=== PATIENT | male | born 1945 | race Caucasian/White ===

== ENCOUNTER 2019-11-27 14:08 | Outpatient (CLI) | payer MEDICARE, OTHER, SELFPAY ==
--- NOTE | 2019-11-27 18:16 | ONC CON_ITS ---
Dr. Jansen New Patient Note Patient: Neeraj Sheridan Unit #: [id number]: 1945 Dicatated By: Ronak Jansen M.D.Date of Visit: November 27, 2019 Onc MED New Patient/Consult Referring Physician: Dr. Ronak Caal Iii, M.D. Chief Complaint: Melanoma. 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 He has multiple medical illnesses including hypertension, hyperlipidemia, type 2 diabetes, coronary artery disease with congestive heart failure, and chronic kidney disease. He had presented with an enlarging mole in the left upper back. He had not actually seen it, but he had been aware of its presence for least a year and a half. He had it looked at after it had started bleeding. He was referred to Dr. Caal in [place] and he underwent excisional biopsy on 10/08/2019. I did not have the complete pathology report from that procedure, but according to available records it showed nodular melanoma with Breslow depth 13 mm and with associated ulceration. Staging PET/CT on 10/22/2019 showed no evidence for metabolically active malignancy. MRI of the brain also reportedly showed no evidence of metastatic disease. On 10/28/2019 he underwent a radical resection of soft tissue greater than 5 cm and he underwent lymph node mapping and left axillary superficial sentinel lymphadenectomy. Pathology on the wide excision showed no residual melanoma. There were extensive regressive changes including tumoral melanosis. One lymph node was positive for isolated tumor cells of metastatic melanoma. Pathologic staging was T4b, N1a. He says he has been feeling pretty good, though he complains that he has no energy. He has limited activity, but he is ambulatory and able to function, and he does play golf. His ECOG score is 2. He has good appetite. His weight has been stable. He has no fever. He occasionally has night sweating associated with his diabetes. He says his breathing is good except when he retains fluid. He has a nonproductive cough. He has known coronary disease, but he has not had any chest pain recently. He has no GI/ complaints other than some heartburn. He has chronic back pain. He also has some arthritis pain in his hands. He does not complain of headache. He has dizziness if he gets up too fast. He has neuropathy in his legs and feet. Past Medical History: His medical history includes chronic kidney disease, congestive heart failure, coronary artery disease, degenerative disease of the spine, gastroesophageal reflux disease, hyperlipidemia, hypertension, macular degeneration, peripheral neuropathy, and type II diabetes. Past Surgical History: He underwent excision of melanoma from the left upper back on 10/08/2019. He underwent radical resection/wide excision with lymph node mapping and with left axillary superficial sentinel lymphadenectomy on 10/28/2019. His other surgical/procedural history includes argon laser iridotomy, coronary angioplasty with stent placement in 2010 and in 2011, coronary artery bypass surgery in 2002, and tonsillectomy. Medications: Aspirin 1 Tablet (of 81 mg) Oral at bedtime, Bumetanide 1 Tablet (of 1 mg) Oral b.i.d. PRN, Carvedilol 1 Tablet (of 12.5 mg) Oral daily, Flonase 2 [place](s) (of 50 mcg/act) Suspension Nasal daily, Glimepiride 1 (2 mg) Tablet Oral b.i.d., HYDROcodone-Acetaminophen 1 Tablet (of 7.5-325 mg) Oral q 4 hours PRN, Insulin Glargine 55 Units (of 100 Units/mL) Subcutaneous at bedtime, Isosorbide Mononitrate ER 1 Tablet (of 120 mg) Tablet SR 24 HR Oral every am, metOLazone 1 Tablet (of 5 mg) Oral daily PRN, Nitroglycerin 1 Tablet (of 0.4 mg) Tablet, sublingual Sublingual PRN, Ranolazine ER 1 Tablet (of 1000 mg) Tablet SR 12 HR Oral b.i.d., Zetia 1 Tablet (of 10 mg) Oral daily Allergies: Ferrous Sulfate, Magnesium Sulfate, Mevacor, Niaspan, Pravachol, and Statins. Social History: Mr. Sheridan is . 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 He smoked as a teenager, but none since then. He has moderate alcohol use estimated at 3-6 beers per day. Family History: Father of heart attack at age 49. Mother at 96 of old age. He has 1 brother and 2 sisters. He says everyone in the family has diabetes. Review Of Symptoms: Constitutional - He generally feels lousy. His energy level is very low, he does little to nothing at home. His appetite is good and weight is stable. No fever, chills or hot flashes. He has night sweats. ECOG score is 2, Eyes - He has a cataract in the left eye, ENMT - No hearing loss or tinnitus. He has chronic sinusitis. No mouth sores. No sore throat or difficulty swallowing, Hematologic/Lymphatic - He bruises easily, Respiratory - Breathing is good except when he retains extra fluid. He has a nonproductive cough. No pleuritic pain or hemoptysis, Cardiovascular - He has not been having chest pain. No palpitations, Gastrointestinal - No nausea or vomiting. He has acid reflux. No diarrhea or constipation. No blood in the stool or black stools, Genitourinary (M) - No dysuria or hematuria. No urinary frequency. No urgency or incontinence, Musculoskeletal - He has a little arthritis pain in his hands. He has some chronic back pain, Integumentary - He has had a melanoma excised, Neurologic - No headache. He has occasional dizziness with positional changes. He has significant neuropathy in his legs and feet, Psychiatric - No anxiety or depression. No insomnia. Vital Signs: Performed on November 27, 2019 14:30: 0, 31.52 (HIGH), 2.22 sq.m, 71.00 in, 97 %, 82 /min, 22 /min, 188/94 mm(hg) (HIGH), 97.9 F (LOW), and 226.0 lbs (HIGH). Physical Examination: Constitutional - He appears somewhat weak generally, but not acutely ill, Eyes - Sclerae nonicteric. Conjunctivae clear, ENMT - No lesions noted in the oral cavity, Neck - No mass or thyromegaly, Hematologic/Lymphatic - No cervical, clavicular, or axillary adenopathy, Respiratory - Lungs sound clear with slightly diminished air movement bilaterally, Cardiovascular - Heart rhythm is regular. There is no murmur, gallop, or rub noted, Abdomen - Mildly distended but soft. Liver and spleen are not enlarged. There is no abdominal mass or ascites noted and there is no inguinal adenopathy, Back/Spine - No spine or CVA tenderness noted. The incision in the mid to upper back on the left side appears well-healed, Extremities - Mild lower extremity edema. I am not able to palpate pedal pulses, Integumentary - No rashes. No suspicious skin lesions noted, Neurologic - No focal neurologic deficits noted. Impression: 1. 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 2. He underwent excisional biopsy of the melanoma on 10/08/2019 followed by radical resection/wide excision, lymph node mapping, and left axillary superficial sentinel lymphadenectomy on 10/28/2019. His other medical illnesses include: 3. Hypertension. 4. Hyperlipidemia. 5. Type 2 diabetes with peripheral neuropathy. 6. Coronary artery disease with congestive heart failure. 7. Chronic kidney disease. 8. GERD. 9. Degenerative disease of the spine with chronic back pain. 10. Macular degeneration. Plan: The pathology results reviewed with the patient and his , and we discussed the clinical implications. He has undergone complete resection of melanoma from the left upper back, but he has very high risk disease based on the depth of invasion and the involved axillary sentinel lymph node. We discussed the fact that he would potentially be eligible for adjuvant immunotherapy with nivolumab, which has been shown to reduce the risk of recurrence. I reviewed potential side effects associated with nivolumab, which do tend to be immune mediated. Although the risk for severe toxicities would be low, he would be potentially at risk due to his multiple underlying medical illnesses and somewhat marginal performance status. As such, he indicates that he prefers not to have any further treatment at this time. As an alternative, he will be monitored closely and if the melanoma recurs, he will then have the option to undergo treatment. He is scheduled to see his primary care provider on Sunday and I will request to have CBC, CMP, and LDH level included with that visit. I will then plan to see him again in 3 months, or sooner as needed. Signed By: Ronak Jansen M.D. <<Signature on File>>
== END 2019-11-27 14:09 | disposition home or self-care (01) ==
PROVIDERS: PCP Internal Medicine; Referring Provider Surgery; Visit Provider Internal Medicine Medical Oncology
DX: C43.59 Malignant melanoma of other part of trunk (principal); C77.3 Secondary and unspecified malignant neoplasm of axilla and upper limb lymph nodes; I13.0 Hypertensive heart and chronic kidney disease with heart failure and stage 1 through stage 4 chronic kidney disease, or unspecified chronic kidney disease; N18.9 Chronic kidney disease, unspecified; I50.9 Heart failure, unspecified; I25.10 Atherosclerotic heart disease of native coronary artery without angina pectoris; K21.9 Gastro-esophageal reflux disease without esophagitis; M48.9 Spondylopathy, unspecified; H35.30 Unspecified macular degeneration; Z79.82 Long term (current) use of aspirin
CPT/HCPCS: 99205

== ENCOUNTER 2020-02-19 14:01 | Outpatient (CLI) | payer MEDICARE, OTHER, SELFPAY ==
[2020-02-19 14:30] LABS: Basophils % 0.5 %; Eosinophils # 0.5 10^3/uL (0.0-0.8); Eosinophils % 6.1 %; Hematocrit 36.4 % (42.0-52.0); Hemoglobin 12.1 g/dL (11.7-16.6); Lymphocytes # 1.4 10^3/uL (0.8-4.8); Lymphocytes % 18.3 %; Mean Corpuscular HGB Conc 33.2 g/dL (30.0-36.0); Mean Corpuscular Hemoglobin 33.1 pg (28.0-34.0); Mean Corpuscular Volume 99.5 fL (80-94); Mean Platelet Volume 10.7 fL (7.4-10.4); Monocytes # 0.8 10^3/uL (0.2-0.9); Monocytes % 10.7 %; Neutrophils # 4.87 10^3/uL (1.8-7.7); Nucleated Red Blood Cells % 0 %; Platelet Count 206 10^3/cmm (130-400); Red Blood Count 3.66 10^6/uL (4.1-5.3); Red Cell Distribution Width 11.8 % (12.1-15.1); White Blood Count 7.6 10^3/uL (4.0-10.0)
[2020-02-19 14:45] LABS: Alanine Aminotransferase 13 U/L (0-41); Albumin Level 4.1 g/dL (3.5-5.2); Alkaline Phosphatase 63 IU/L (40-130); Anion Gap 16.5 (5-19); Aspartate Amino Transferase 14 U/L (0-40); Blood Urea Nitrogen 57 mg/dL (8-23); Calcium 9.1 mg/dL (8.5-10.5); Carbon Dioxide 22 mmol/L (22-29); Chloride 99 mmol/L (98-107); Globulin 3.4 g/dL (1.3-4.6); Glucose 404 mg/dL (65-115); Lactate Dehydrogenase 194 U/L (135-225); Osmolality Calculated 292 mOsm/kg (285-295); Potassium 4.5 mmol/L (3.5-5.1); Sodium 133 mmol/L (136-145); Total Bilirubin 0.3 mg/dL (0.15-1.2); Total Protein 7.5 g/dL (6.6-8.7)
--- NOTE | 2020-02-21 19:26 | ONC FU_ITS ---
Dr. Jansen Patient Follow-Up Note Patient: Neeraj Sheridan Unit #: [id number]: 1945 Dicatated By: Ronak Jansen M.D.Date of Visit:Feb 19, 2020 Onc Med Follow-up/Prog Note Chief Complaint: Melanoma. 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 He has multiple medical illnesses including hypertension, hyperlipidemia, type 2 diabetes, coronary artery disease with congestive heart failure, and chronic kidney disease. He had presented with an enlarging mole in the left upper back. He had not actually seen it, but he had been aware of its presence for least a year and a half. He had it looked at after it had started bleeding. He was referred to Dr. Caal in [place] and he underwent excisional biopsy on 10/08/2019. I did not have the complete pathology report from that procedure, but according to available records it showed nodular melanoma with Breslow depth 13 mm and with associated ulceration. Staging PET/CT on 10/22/2019 showed no evidence for metabolically active malignancy. MRI of the brain also reportedly showed no evidence of metastatic disease. On 10/28/2019 he underwent a radical resection of soft tissue greater than 5 cm and he underwent lymph node mapping and left axillary superficial sentinel lymphadenectomy. Pathology on the wide excision showed no residual melanoma. There were extensive regressive changes including tumoral melanosis. One lymph node was positive for isolated tumor cells of metastatic melanoma. Pathologic staging was T4b, N1a. I had seen him initially on 11/27/2019. We discussed the possibility of adjuvant immunotherapy, as he did appear to meet the eligibility requirements. Due to his multiple underlying medical illnesses he opted against treatment. He is seen for a followup visit. He has been feeling a little better generally. He has better energy now. He has been playing golf, and he can do light work. His ECOG score is 1. He has good appetite. He has lost weight. He has no fever or night sweats. He does not complain of shortness of breath, cough, or chest pain. He has no GI or complaints. He has joint pain, mainly in the hands and shoulders. He does not complain of headache or dizziness. He neuropathy in his feet. Medications: Aspirin 1 Tablet (of 81 mg) Oral at bedtime, Bumetanide 1 Tablet (of 1 mg) Oral b.i.d. PRN, Carvedilol 1 Tablet (of 12.5 mg) Oral daily, Flonase 2 [place](s) (of 50 mcg/act) Suspension Nasal daily, Glimepiride 1 (2 mg) Tablet Oral b.i.d., HYDROcodone-Acetaminophen 1 Tablet (of 7.5-325 mg) Oral q 4 hours PRN, Insulin Glargine 55 Units (of 100 Units/mL) Subcutaneous at bedtime, Isosorbide Mononitrate ER 1 Tablet (of 120 mg) Tablet SR 24 HR Oral every am, metOLazone 1 Tablet (of 5 mg) Oral daily PRN, Nitroglycerin 1 Tablet (of 0.4 mg) Tablet, sublingual Sublingual PRN, Ranolazine ER 1 Tablet (of 1000 mg) Tablet SR 12 HR Oral b.i.d., Zetia 1 Tablet (of 10 mg) Oral daily Allergies: Ferrous Sulfate, Magnesium Sulfate, Mevacor, Niaspan, Pravachol, and Statins. Review of Systems: Constitutional - His energy is okay. He can do some light work around the house. His appetite is good and his weight is down about 15 pounds from his last visit. No fever, night sweats, or hot flashes. ECOG score is 1, ENMT - No sinus congestion/drainage. No mouth sores. No sore throat or difficulty swallowing, Hematologic/Lymphatic - No abnormal bruising or bleeding, Respiratory - No shortness of breath. No cough. No pleuritic pain or hemoptysis, Cardiovascular - No angina pain. No palpitations, Gastrointestinal - No nausea or vomiting. No heartburn or acid reflux. No diarrhea or constipation. No blood in the stool or black stools, Genitourinary (M) - No dysuria or hematuria. He has urinary frequency. No urgency or incontinence, Musculoskeletal - He has joint pain in his hands and shoulders, Integumentary - No skin complications, Neurologic - No headache or dizziness. He has neuropathy in his feet. No other focal neurologic symptoms, Psychiatric - No anxiety or depression. No insomnia. Vital Signs: Performed on Feb 19, 2020 16:03 Height - 71.00 in Weight - 211.0 lbs (LOW) BSA - 2.16 sq.m BMI - 29.43 Temperature - 98.5 F Pulse - 89 /min Respiration - 17 /min BP - 140/79 mm(hg) O2 Sat - 95 % (LOW) Pain - 0 Fatigue - 5 Physical Examination: Constitutional - He looks pretty good generally, Eyes - Sclerae nonicteric. Conjunctivae clear, ENMT - No lesions noted in the oral cavity, Hematologic/Lymphatic - No cervical, clavicular, or axillary adenopathy, Respiratory - Lungs sound clear with slightly diminished air movement bilaterally, Cardiovascular - Heart rhythm is regular. There is no murmur, gallop, or rub noted, Abdomen - Mildly distended but soft. Liver and spleen are not enlarged. There is no abdominal mass or ascites noted and there is no inguinal adenopathy, Extremities - Slight edema, Integumentary - No suspicious skin lesions noted, Neurologic - No focal neurologic deficits noted. Lab/Imaging: Test performed on Feb 19, 2020 14:15 LDH (Total) 194 U/L Sodium 133 mmol/L Potassium 4.5 mmol/L Chloride 99 mmol/L CO2 22 mmol/L Anion Gap 16.5 BUN 57 mg/dL Creatinine 3.1 mg/dL Cr Clearance (Est) 28.3000 mL/min Glucose 404 mg/dL Calcium 9.1 mg/dL Protein, Total 7.5 g/dL Albumin 4.1 g/dL Globulin 3.4 g/dL Bilirubin, Total 0.3 mg/dL ALT (SGPT) 13 U/L AST (SGOT) 14 U/L Alkaline Phosphatase 63 IU/L WBC 7.6 10 3/uL RBC 3.66 10 6/uL HGB 12.1 g/dL HCT 36.4 % MCV 99.5 fL MCH 33.1 pg MCHC 33.2 g/dL RDW 11.8 % Platelet Count 206 10 3/cmm MPV 10.7 fL Neutrophils 4.87 10 3/uL Lymphocytes 1.4 10 3/uL Monocytes 0.8 10 3/uL Eosinophils 0.5 10 3/uL Basophils 0.0 10 3/uL Neutrophil % 64.0 % Lymphocyte % 18.3 % Monocyte % 10.7 % Eosinophil % 6.1 % Basophils % 0.5 % NRBC % 0 % Impression: 1. 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 2. He underwent excisional biopsy of the melanoma on 10/08/2019 followed by radical resection/wide excision, lymph node mapping, and left axillary superficial sentinel lymphadenectomy on 10/28/2019. His other medical illnesses include: 3. Hypertension. 4. Hyperlipidemia. 5. Type 2 diabetes with peripheral neuropathy. 6. Coronary artery disease with congestive heart failure. 7. Chronic kidney disease. 8. GERD. 9. Degenerative disease of the spine with chronic back pain. 10. Macular degeneration. He has undergone resection of a high risk melanoma. Due to his multiple underlying medical illnesses he declined adjuvant immunotherapy. Since his intial visit there has been improvement in his performance status. There has been no evidence of recurrence of the melanoma. Plan: He remains on observation/expectant management for the melanoma. At this point he wishes to just continue his regular followup with Dr. Caal. I will plan to see him again as needed. Signed By: Ronak Jansen M.D. <<Signature on File>>
== END 2020-02-19 14:02 | disposition home or self-care (01) ==
LOC: ONCMED 14:05
PROVIDERS: PCP Internal Medicine; Visit Provider Internal Medicine Medical Oncology
DX: Z08 Encounter for follow-up examination after completed treatment for malignant neoplasm (principal); Z85.820 Personal history of malignant melanoma of skin; E78.5 Hyperlipidemia, unspecified; E11.42 Type 2 diabetes mellitus with diabetic polyneuropathy; I25.10 Atherosclerotic heart disease of native coronary artery without angina pectoris; E11.22 Type 2 diabetes mellitus with diabetic chronic kidney disease; I13.0 Hypertensive heart and chronic kidney disease with heart failure and stage 1 through stage 4 chronic kidney disease, or unspecified chronic kidney disease; N18.9 Chronic kidney disease, unspecified; I11.0 Hypertensive heart disease with heart failure; K21.9 Gastro-esophageal reflux disease without esophagitis; M47.9 Spondylosis, unspecified; H35.30 Unspecified macular degeneration
CPT/HCPCS: 36415; 80053; 83615; 85025; G0463

== ENCOUNTER 2020-11-15 23:41 | Inpatient (IN) | payer MEDICARE, OTHER, SELFPAY ==
[2020-11-15 23:42] VITALS: BP 137/105; PULSE 122; RESP 36; TEMP 36.6; O2SAT 99; BMI 30.7
--- NOTE | 2020-11-15 23:45 | ED_ITS ---
HPI - Chest Pain General: Chief Complaint: Shortness of Breath/Dyspnea Stated Complaint: SOB, CP Time Seen by Provider: 11/15/20 23:44 Source: patient and EMS Mode of arrival: EMS Limitations: no limitations History of Present Illness: HPI narrative: 75-year-old male has extensive cardiac history with multiple stents placed and a history of congestive heart failure. Patient states he started having chest pain along with shortness of breath started 2 hours ago. EMS states when they arrived he having difficulty breathing was diaphoretic complain chest pain. Patient given aspirin nitro in route. States his pain has improved. Denies any vomiting. Associated symptoms: Reports dyspnea; Deny abdominal pain, fever(s), nausea or vomiting Review of Systems Const: Denies: fever(s), chills, body aches or change in appetite Eyes: Denies: blurry vision or eye discomfort ENMT: Denies: throat pain or dental pain Card: Reports: chest pain Resp: Reports: dyspnea GI: Denies: abdominal pain, nausea, vomiting or diarrhea : Denies: dysuria Musc: Denies: neck pain or back pain Skin/Breast: Denies: rash Neuro: Denies: headache(s) Psych: Denies: depression Isaias/Lymph: Denies: easy bruising All/Imm: Denies: urticaria Physical Exam Const: COMMON NORMALS: patient oriented x3 and healthy appearing GENERAL APPEARANCE: in distress and ill appearing HENMT: COMMON NORMALS: normocephalic and atraumatic HEAD & SCALP: normocephalic and atraumatic Eye: COMMON NORMALS: Equal, round and reactive pupils present and EOMs intact bilaterally PUPIL: Yes Equal, round and reactive pupils present Neck/C-Spine: COMMON NORMALS: full ROM and supple Chest: COMMONS NORMALS: normal inspection of the chest and normal palpation of entire chest wall Resp: COMMON NORMALS: No retractions, No use of accessory muscles and clear to auscultation bilaterally EFFORT & INSPECTION: Yes tachypneic AUSCULTATION: clear to auscultation bilaterally Cardio: COMMON NORMALS: regular rate, regular rhythm and No murmurs present (Cardio) RATE: regular rate RHYTHM: regular rhythm GI: COMMON NORMALS: Normal to inspection, nondistended, normoactive bowel sounds present, Soft to palpation, non-tender and no masses PALPATION: Yes Soft to palpation Extremity: COMMON NORMALS: normal to inspection and full ROM Neuro: COMMON NORMALS: patient oriented x3, moves all extremities and no focal motor deficits Psych: COMMON NORMALS: mental status grossly normal, Normal thought process present and cooperative THOUGHT PROCESS: Normal thought process present Skin: COMMON NORMALS: no rashes or lesions noted and no wounds GENERAL SKIN EXAM: no rashes or lesions noted Course Vital Signs: Vital signs: Vital Signs Temperature 97.9 F 11/15/20 23:42 Pulse Rate 110 H 11/16/20 00:52 Respiratory Rate 20 H 11/16/20 00:52 Blood Pressure 142/100 11/16/20 00:52 Pulse Oximetry 97 11/16/20 00:52 MDM - Chest Pain MDM Narrative: Medical decision making narrative: Patient presents with chest pain along with CHF exacerbation. He is much improved here on BiPAP. He does have an elevated troponin but his chest pain here is resolved after nitro. Patient given Lasix for CHF I also gave him Lovenox. I had Dr. Shahid review EKG and he agrees that it is left bundle branch with no signs of STEMI. I spoke to the hospitalist will admit the cardiac stepdown and talk to medical hospital sales Dr. Collado Lab Data: Labs: Lab Results 11/15/20 11/15/20 11/15/20 Range/Units 23:44 23:44 23:44 WBC 10.1 H (4.0-10.0) 10^3/ uL RBC 3.89 L (4.1-5.3) 10^6/u L Hgb 12.4 (11.7-16.6) g/dL Hct 37.5 L (42.0-52.0) % MCV 96.4 H (80-94) fL MCH 31.9 (28.0-34.0) pg MCHC 33.1 (30.0-36.0) g/dL RDW 11.9 L (12.1-15.1) % Plt Count 204 (130-400) 10^3/c mm MPV 11.2 H (7.4-10.4) fL Neut % (Auto) 84.2 % Lymph % (Auto) 8.4 % [place] % (Auto) 4.6 % Eos % (Auto) 2.1 % Baso % (Auto) 0.4 % Neut # (Auto) 8.49 H (1.8-7.7) 10^3/u L Lymph # (Auto) 0.9 (0.8-4.8) 10^3/u L [place] # (Auto) 0.5 (0.2-0.9) 10^3/u L Eos # (Auto) 0.2 (0.0-0.8) 10^3/u L Baso # (Auto) 0.0 (0.0-0.1) 10^3/u L Nucleated RBC % (a uto) 0 % Nucleated RBCs # 0.0 /100WBC PT 13.10 (12.1-14.9) SECO NDS INR 0.96 (0.8-1.2) Sodium 133 L (136-145) mmol/L Potassium 6.2 H (3.5-5.1) mmol/L Chloride 99 (98-107) mmol/L Carbon Dioxide 22 (22-29) mmol/L Anion Gap 18.2 (5-19) BUN 44 H (8-23) mg/dL Creatinine 2.6 H (0.7-1.2) mg/dL GFR Calculation Not Reportable Glucose 492 H (65-115) mg/dL POC Glucose (70-110) mg/dL Calculated Osmolal ity 309 H (285-295) mOsm/k g Calcium 8.5 (8.5-10.5) mg/dL Total Bilirubin 0.3 (0.15-1.2) mg/dL AST 29 (0-40) U/L ALT 16 (0-41) U/L Alkaline Phosphata se 63 (40-130) IU/L Troponin T Baselin e (0-15) ng/L NT-Pro-B Natriuret Pep 76082 H (0-450) pg/mL Total Protein 6.9 (6.6-8.7) g/dL Albumin 4.3 (3.5-5.2) g/dL Globulin 2.6 (1.3-4.6) g/dL 11/15/20 11/16/20 Range/Units 23:44 00:10 WBC (4.0-10.0) 10^3/ uL RBC (4.1-5.3) 10^6/u L Hgb (11.7-16.6) g/dL Hct (42.0-52.0) % MCV (80-94) fL MCH (28.0-34.0) pg MCHC (30.0-36.0) g/dL RDW (12.1-15.1) % Plt Count (130-400) 10^3/c mm MPV (7.4-10.4) fL Neut % (Auto) % Lymph % (Auto) % [place] % (Auto) % Eos % (Auto) % Baso % (Auto) % Neut # (Auto) (1.8-7.7) 10^3/u L Lymph # (Auto) (0.8-4.8) 10^3/u L [place] # (Auto) (0.2-0.9) 10^3/u L Eos # (Auto) (0.0-0.8) 10^3/u L Baso # (Auto) (0.0-0.1) 10^3/u L Nucleated RBC % (a uto) % Nucleated RBCs # /100WBC PT (12.1-14.9) SECO NDS INR (0.8-1.2) Sodium (136-145) mmol/L Potassium (3.5-5.1) mmol/L Chloride (98-107) mmol/L Carbon Dioxide (22-29) mmol/L Anion Gap (5-19) BUN (8-23) mg/dL Creatinine (0.7-1.2) mg/dL GFR Calculation Glucose (65-115) mg/dL POC Glucose 519 H* (70-110) mg/dL Calculated Osmolal ity (285-295) mOsm/k g Calcium (8.5-10.5) mg/dL Total Bilirubin (0.15-1.2) mg/dL AST (0-40) U/L ALT (0-41) U/L Alkaline Phosphata se (40-130) IU/L Troponin T Baselin e 377 H* (0-15) ng/L NT-Pro-B Natriuret Pep (0-450) pg/mL Total Protein (6.6-8.7) g/dL Albumin (3.5-5.2) g/dL Globulin (1.3-4.6) g/dL Imaging Data^: CXR: Attestation: I personally reviewed and interpreted this imaging study as follows: Radiologist's impression: [address] [id number] XRay Report Signed Patient: Neeraj Sheridan Unit #: [id number] : 1945 Age/Sex: 75 / M ADM Date: 11/15/20 Loc: ER Room/Bed: Attending Dr: Ordering Provider/Ordering MD: Jolynn Perez MD Date of Service: 11/15/20 Procedure(s): XR chest 1V portable [id number] Accession Number(s): [id number] Report Number: [id number] PROCEDURE INFORMATION: Exam: XR Chest Exam date and time: 11/15/2020 11:45 PM Age: 75 years old Clinical indication: Pain; Chest pressure; Additional info: Cp TECHNIQUE: Imaging protocol: XR of the chest. Views: 1 view. COMPARISON: No relevant prior studies available. FINDINGS: Lungs: No focal consolidation. Prominent pulmonary vasculature. Pleural spaces: Unremarkable. No pleural effusion. No pneumothorax. Heart/Mediastinum: Cardiac shadow is enlarged. Bones/joints: Changes of prior sternotomy. There are several fractured sternal wires which show some separation along with a vertical lucency extending through the expected location of the sternal body. XR/XR chest 1V portable [id number] IMPRESSION: 1. Prominent pulmonary vasculature suggesting possible volume overload or heart failure. 2. Suspected sternal dehiscence. EKG Data^: EKG 1: Attestation: I personally reviewed and interpreted this EKG as follows: EKG interpretation date: 11/15/20 EKG interpretation time: 23:42 Interpretation: sinus tach hr [address] elevation LBBB qrs 157 qtc 419 Critical Care Time Critical Care Time: Critical Care Time: Yes Total Critical Care Time: 36 Attestation: This case had a high probability of a clinically significant, sudden, or life threatening deterioration of this patient's condition which required my full and direct attention, intervention and personal management. Discharge Plan Discharge Patient Disposition: Admitted As Inpatient Clinical Impression: Non-ST elevation [place] (NSTEMI) Congestive heart failure Qualifiers: Heart failure type: unspecified Heart failure chronicity: acute on chronic Qualified Code(s): I50.9 - Heart failure, unspecified Condition: Stable Coding Level of Care Code ED Refuse Driver for g Fwd Exam Comprehensive
--- NOTE | 2020-11-15 23:45 | ECG_ITS ---
[facility] Test Date: 2020-11-16 Pat Name: Neeraj Sheridan Department: Room: [facility]03 Gender: Male Family Assessment Worker: : 1945 Requested By: Jolynn Perez Order Number: [id number] Grant MD: Danitza Collado M.D. Measurements Intervals [place] Rate: 124 P: 46 TX: 229 QRS: -16 QRSD: 164 T: 134 QT: 352 QTc: 506 Interpretive Statements SINUS TACHYCARDIA WITH FIRST DEGREE AV BLOCK INTRAVENTRICULAR CONDUCTION DELAY [130+ ms QRS DURATION] No previous ECG available for comparison Electronically Signed On 11-17-2020 6:56:26 CDT by Danitza Collado M.D. [email or web address] ([email or web address] centerAdvanced Oncotherapyselect medical specialty hospital - [email or web address]/store/NU/[id number] f
--- NOTE | 2020-11-15 23:49 | PC.NURSE ---
EKG taken and given to Dr. Perez
[2020-11-15] MEDS: ondansetron 2 mg/ML SDV 2 mL 4 MG IVP (23:56)
[2020-11-15] MEDS: morphine 4 mg/mL SDV 1 mL IVP (23:57)
[2020-11-16] VITALS (89 sets, daily range): BP systolic 104–172; BP diastolic 57–115; PULSE 91–122; RESP 17–32; TEMP 36.6–37.4; O2SAT 93–100; BMI 29.7
[2020-11-16 00:04] LABS: Basophils % 0.4 %; Eosinophils # 0.2 10^3/uL (0.0-0.8); Eosinophils % 2.1 %; Hematocrit 37.5 % (42.0-52.0); Hemoglobin 12.4 g/dL (11.7-16.6); INR 0.96 (0.8-1.2); Lymphocytes # 0.9 10^3/uL (0.8-4.8); Lymphocytes % 8.4 %; Mean Corpuscular HGB Conc 33.1 g/dL (30.0-36.0); Mean Corpuscular Hemoglobin 31.9 pg (28.0-34.0); Mean Corpuscular Volume 96.4 fL (80-94); Mean Platelet Volume 11.2 fL (7.4-10.4); Monocytes # 0.5 10^3/uL (0.2-0.9); Monocytes % 4.6 %; Neutrophils # 8.49 10^3/uL (1.8-7.7); Neutrophils % 84.2 %; Nucleated Red Blood Cells % 0 %; Platelet Count 204 10^3/cmm (130-400); Red Blood Count 3.89 10^6/uL (4.1-5.3); Red Cell Distribution Width 11.9 % (12.1-15.1); White Blood Count 10.1 10^3/uL (4.0-10.0)
--- NOTE | 2020-11-16 00:04 | ECG_ITS ---
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 Measurements Intervals [place] Rate: 122 P: -40 HI: 133 QRS: -15 QRSD: 157 T: 133 QT: 347 QTc: 495 Interpretive Statements SINUS TACHYCARDIA LEFT BUNDLE BRANCH BLOCK [120+ ms QRS DURATION, 80+ ms Q/S IN V1/V2, 85+ ms R IN I/aVL/V5/V6] No previous ECG available for comparison Electronically Signed On 11-17-2020 6:56:37 CDT by Danitza Collado M.D. [email or web address] [id number] f
[2020-11-16] MEDS: nitroglycerin 0.4 mg sublingual Tablet SUBLINGUAL (00:06)
--- NOTE | 2020-11-16 00:11 | PC.NURSE ---
EKG taken and given to Dr. Perez
[2020-11-16 00:14] LABS: Glucose Point of Care 519 mg/dL (70-110)
[2020-11-16] MEDS: insulin regular-human 100 units/1 mL 10 UNIT IVP (00:16)
[2020-11-16] MEDS: FUROsemide 10 mg/mL SDV 10mL 80 MG IVP (00:16)
[2020-11-16 00:17] LABS: Alanine Aminotransferase 16 U/L (0-41); Albumin Level 4.3 g/dL (3.5-5.2); Alkaline Phosphatase 63 IU/L (40-130); Anion Gap 18.2 (5-19); Aspartate Amino Transferase 29 U/L (0-40); Blood Urea Nitrogen 44 mg/dL (8-23); Calcium 8.5 mg/dL (8.5-10.5); Carbon Dioxide 22 mmol/L (22-29); Chloride 99 mmol/L (98-107); Globulin 2.6 g/dL (1.3-4.6); Glucose 492 mg/dL (65-115); NT Pro B Type Natriuretic Pept 12017 pg/mL (0-450); Osmolality Calculated 309 mOsm/kg (285-295); Potassium 6.2 mmol/L (3.5-5.1); Sodium 133 mmol/L (136-145); Total Bilirubin 0.3 mg/dL (0.15-1.2); Total Protein 6.9 g/dL (6.6-8.7)
[2020-11-16 00:22] LABS: Troponin(5th) Baseline 377 ng/L (0-15)
[2020-11-16] MEDS: enoxaparin 100 mg/mL Syringe SUBCUT (00:32)
--- NOTE | 2020-11-16 01:37 | P.HP_ITS ---
Providers/Chief Complaint Primary Care Provider: Claus Wells MD Chief Complaint: SOB, CP History of Present Illness Neeraj Sheridan is a 75 year old male with past medical history of coronary artery disease, CHF, chronic kidney disease, diabetes, hypertension who presents to emergency room with complaints of chest tightness and shortness of breath. Patient was found to have significant respiratory distress and hypoxia. Chest x-ray revealed pulmonary edema and CHF. BNP and troponin were elevated. EKG revealed left bundle branch block. The patient received nitroglycerin which helped with the chest tightness. Also the patient was started on BiPAP which improved his shortness of breath. The patient was also given 1 dose of Lovenox, furosemide. Currently feels better with the BiPAP. No chest pain at this time. Tower Equipment Installer Dr. Castro was consulted. He reviewed patient's EKG with ED physician. Decision was made to admit the patient and reevaluate in the morning. The patient reports similar episodes in the past. Last episode was about 2 months ago. At that time he took additional dose of Lasix and his symptoms improved at home. 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 He reports drinking couple of beers every day. Denies tobacco. Reports chronic kidney disease which is probably pretty severe. His mentions that he holds his urine very long before urinating. He denies any abdominal or back pain. No dysuria. Review of Systems General: Reports: 10 or more systems reviewed and unremarkable except in HPI and below Medications/Allergies Allergies Allergy/AdvReac Type Severity Reaction Status Date / Time Unable to Assess Allergy Unverified 11/15/20 23:47 Vitals/I&O/Wt Last Vital Signs Temp 97.9 F 11/15/20 23:42 Pulse 105 H 11/16/20 01:17 Resp 19 H 11/16/20 01:17 BP 163/105 11/16/20 01:17 Pulse Ox 99 11/16/20 01:17 Weight last 48 hrs Weight 99.79 kg Physical Exam Narrative: EXAM NARRATIVE: The patient is awake alert and oriented. No acute distress currently. On BiPAP. Mood and affect are appropriate. Responses are adequate. Skin is warm and dry. Moist extremities Neck supple. No JVD Eyes PERRL, extraocular muscles are intact Lungs bibasilar crackles. No respiratory distress Heart S1, S2, regular Abdomen soft, obese, nontender, bowel sounds are present Extremities bilateral pedal edema. No cyanosis or calf tenderness bilaterally. Normal speech. No focal muscle weakness. Data : 11/15/20 23:44 11/15/20 23:44 Other Labs: Laboratory Results WBC 10.1 10^3/uL (4.0-10.0) H 11/15/20 23:44 RBC 3.89 10^6/uL (4.1-5.3) L 11/15/20 23:44 Hgb 12.4 g/dL (11.7-16.6) 11/15/20 23:44 Hct 37.5 % (42.0-52.0) L 11/15/20 23:44 MCV 96.4 fL (80-94) H 11/15/20 23:44 MCH 31.9 pg (28.0-34.0) 11/15/20 23:44 MCHC 33.1 g/dL (30.0-36.0) 11/15/20 23:44 RDW 11.9 % (12.1-15.1) L 11/15/20 23:44 Plt Count 204 10^3/cmm (130-400) 11/15/20 23:44 MPV 11.2 fL (7.4-10.4) H 11/15/20 23:44 Neut % (Auto) 84.2 % 11/15/20 23:44 Lymph % (Auto) 8.4 % 11/15/20 23:44 [place] % (Auto) 4.6 % 11/15/20 23:44 Eos % (Auto) 2.1 % 11/15/20 23:44 Baso % (Auto) 0.4 % 11/15/20 23:44 Neut # (Auto) 8.49 10^3/uL (1.8-7.7) H 11/15/20 23:44 Lymph # (Auto) 0.9 10^3/uL (0.8-4.8) 11/15/20 23:44 [place] # (Auto) 0.5 10^3/uL (0.2-0.9) 11/15/20 23:44 Eos # (Auto) 0.2 10^3/uL (0.0-0.8) 11/15/20 23:44 Baso # (Auto) 0.0 10^3/uL (0.0-0.1) 11/15/20 23:44 Nucleated RBC % (auto) 0 % 11/15/20 23:44 Nucleated RBCs # 0.0 /100WBC 11/15/20 23:44 PT 13.10 SECONDS (12.1-14.9) 11/15/20 23:44 INR 0.96 (0.8-1.2) 11/15/20 23:44 Sodium 133 mmol/L (136-145) L 11/15/20 23:44 Potassium 6.2 mmol/L (3.5-5.1) H 11/15/20 23:44 Chloride 99 mmol/L (98-107) 11/15/20 23:44 Carbon Dioxide 22 mmol/L (22-29) 11/15/20 23:44 Anion Gap 18.2 (5-19) 11/15/20 23:44 BUN 44 mg/dL (8-23) H 11/15/20 23:44 Creatinine 2.6 mg/dL (0.7-1.2) H 11/15/20 23:44 GFR Calculation Not Reportable 11/15/20 23:44 Glucose 492 mg/dL (65-115) H 11/15/20 23:44 POC Glucose 519 mg/dL (70-110) H* 11/16/20 00:10 Calculated Osmolality 309 mOsm/kg (285-295) H 11/15/20 23:44 Calcium 8.5 mg/dL (8.5-10.5) 11/15/20 23:44 Total Bilirubin 0.3 mg/dL (0.15-1.2) 11/15/20 23:44 AST 29 U/L (0-40) 11/15/20 23:44 ALT 16 U/L (0-41) 11/15/20 23:44 Alkaline Phosphatase 63 IU/L (40-130) 11/15/20 23:44 Troponin T Baseline 377 ng/L (0-15) H* 11/15/20 23:44 NT-Pro-B Natriuret Pep 60759 pg/mL (0-450) H 11/15/20 23:44 Total Protein 6.9 g/dL (6.6-8.7) 05/17/21 23:44 Albumin 4.3 g/dL (3.5-5.2) 11/15/20 23:44 Globulin 2.6 g/dL (1.3-4.6) 11/15/20 23:44 Impressions Chest X-Ray 11/15/20 23:44 IMPRESSION: 1. Prominent pulmonary vasculature suggesting possible volume overload or heart failure. 2. Suspected sternal dehiscence. A&P Additional A&P Information 75-year-old male with past medical history of coronary artery disease, CHF, advanced chronic kidney disease, diabetes who presents with chest tightness and shortness of breath. Acute onset. Acute hypoxic respiratory failure secondary to pulmonary edema. Improving with BiPAP. Continue BiPAP in ICU. The patient does not want to be intubated. He is a limited code. CODE STATUS. Limited code. He is okay with cardiovascular resuscitation but does not want to be intubated or mechanically ventilated. He is okay with BiPAP. Acute CHF exacerbation. He will go to ICU. He was given Lasix. Echo will be ordered. He will be seen by the research project coordinator in the morning. Non-ST elevation KS. Left bundle branch block on EKG. Will be seen by the research project coordinator in the morning. Was given full dose of Lovenox in ER which is considering his kidney failure is good for next 24 hours. If he needs a longer course of anticoagulation will need to start him on heparin drip after 24 hours. I will continue aspirin. He will receive Lipitor. Beta-roberth. Hypertension. Uncontrolled. We will start with beta-roberth. We will adjust medications as needed. Acute kidney injury versus chronic kidney disease. I will order ultrasound of his kidneys. We will insert Alejandre if he allows. We will monitor his creatinine. Will avoid nephrotoxic medications. Hyperkalemia. We will review his home medications when med rec is done. We will do necessary adjustments. I am hoping that with furosemide and insulin drip his hyperkalemia will improve quickly. Will recheck in the morning. Reported daily alcohol use. We will start vitamins and CIWA protocol. No evidence of withdrawals at this time. Uncontrolled diabetes. Starting insulin drip protocol in ICU. DVT prophylaxis. Received full dose of Lovenox in the emergency room. We will decide on anticoagulant after discussions with research project coordinator in the morning. Teds and SCDs for now. The plan of care was discussed with the patient and his . They verbalized understanding and agreement. Critical care time 55 minutes. Attestations Medical Necessity Statement*: The patient is being admitted to ICU due to need for BiPAP, oxygen, insulin drip and very close cardiac monitoring. Critical care time 55 minutes. I expect that the patient will spend more than 2 midnights in the hospital. Coding Level of Care Code Acute Director Of Scientific Research for Vijay Terrazas
--- NOTE | 2020-11-16 01:41 | US_ITS ---
WS: [id number] ULTRASOUND RENAL TECHNIQUE: Ultrasound examination of both kidneys. CLINICAL INFORMATION: CARLEE COMPARISON: None. FINDINGS: RIGHT: Right kidney is normal in size and appearance. Echogenicity: Normal. Cortical thickness: cm; Normal. Hydronephrosis: None. Perinephric fluid: None. Right kidney measures: 12.2 cm x 6.8 cm x 6.8 cm. LEFT: Left kidney is normal in size and appearance. Echogenicity: Normal. Cortical thickness: cm; Normal. Hydronephrosis: None. Perinephric fluid: None. Left kidney measures: 10.9 cm x 6.2 cm x 7.6 cm. Aorta not visualized. Alejandre catheter. US/US renal BI* [id number] IMPRESSION: Normal renal ultrasound.
--- NOTE | 2020-11-16 01:41 | USCV_ITS ---
Neeraj Sheridan Age: 75 Gender: M : 1945 Exam Date: 11/16/2020 05:29 Ordering Phys: Max Plascencia MD Technologist: Gracia Chiu Exam Location: [facility] [place] Indication: CHF, NSTEMI BP: 150 / 86 HR: 109 Rhythm: Sinus Technical Quality: TDS MEASUREMENTS (Male / Female) Normal Values 2D ECHO LV Diastolic Diameter PLAX 5.2 cm 4.2 - 5.9 / 3.9 - 5.3 cm LV Systolic Diameter PLAX 4.1 cm LV Chamber Size 3.5 cm IVS Diastolic Thickness 1.3 cm 0.6 - 1.0 / 0.6 - 0.9 cm IVS Systolic Thickness 1.8 cm LVPW Diastolic Thickness 1.2 cm 0.6 - 1.0 / 0.6 - 0.9 cm LVPW Systolic Thickness 1.7 cm RV Chamber Size 2.7 cm LVOT Diameter 2.0 cm LV Ejection Fraction 2D Teich 42.3 % LV Ejection Fraction MOD 2C 52.2 % LV Ejection Fraction 2C AL 53.3 % LA Diameter 4.3 cm LA Width 4.2 cm LA Height 4.3 cm RA Width 4.7 cm RA Height 3.9 cm Aorta at Sinotubular Diameter 3.0 cm M-MODE LV Diastolic Diameter MM 4.5 cm 4.2 - 5.9 / 3.9 - 5.3 cm LV Systolic Diameter MM 3.6 cm LV Ejection Fraction MM Teich 39.1 % IVS Diastolic Thickness MM 1.8 cm 0.6 - 1.0 / 0.6 - 0.9 cm IVS Systolic Thickness MM 2.1 cm LVPW Diastolic Thickness MM 1.5 cm 0.6 - 1.0 / 0.6 - 0.9 cm LVPW Systolic Thickness MM 1.8 cm Aortic Annulus Diameter 3.7 cm LA Ao Ratio MM 1.3 MV E Point Septal Separation 1.1 cm DOPPLER AV Peak Velocity 110.0 cm/s LVOT Peak Velocity 65.0 cm/s AV Area Cont Eq vti 2.1 cm squared AV Area Cont Eq pk 2.0 cm squared MV Area PHT 6.9 cm squared Mitral E to A Ratio 1.4 MV E' Velocity 51.0 cm/s Mitral E to MV E' Ratio 24.6 Mitral E to LV E' Lateral Ratio 22.3 Mitral E to LV E' Septal Ratio 28.1 TR Peak Velocity 188.2 cm/s TR Peak Gradient 14.2 mmHg TR Mean Velocity 112.6 cm/s TR Mean Gradient 6.0 mmHg TR Velocity Time Integral 48.8 cm TV Peak E Velocity 41.0 cm/s Right Atrial Pressure 8.0 mmHg Pulmonary Artery Systolic Pressu 22.2 mmHg PV Peak Velocity 51.0 cm/s RV Acceleration Time 0.1 s RV Ejection Time 0.4 s RV AcT/ET 0.3 FINDINGS Left Ventricle Mildly increased left ventricular cavity size. Moderately decreased left ventricular systolic function. Left ventricular ejection fraction is estimated at 35 %. There is mild global hypokinesis with severe hypokinesis of basal to mid inferolateral, apical lateral, basal to apical anterior and apical church. Abnormal diastolic function. Right Ventricle Normal right ventricular size and systolic function. Right ventricular systolic pressure 22.2 mmHg. Right Atrium Normal right atrial size. Right atrial pressure estimated at 8 mmHg. Left Atrium Mildly increased left atrial size. Mitral Valve Moderate mitral annular calcification. Thickened mitral valve. No mitral valve stenosis. Trace mitral valve regurgitation. Aortic Valve Aortic valve not well visualized. Probably trileaflet aortic valve. No aortic valve stenosis. No aortic valve regurgitation. Tricuspid Valve Tricuspid valve not well visualized. Pulmonic Valve Pulmonic valve not well visualized. No pulmonary valve stenosis. Trace pulmonary valve regurgitation. Pericardium No pericardial effusion. Inferior vena cava not well visualized. Aorta Normal-sized aortic root. CONCLUSIONS 1. This is a technically difficult study. Ultrasound enhancing agent Optison was used per protocol. 2. Mildly increased left ventricular cavity size. Moderately decreased left ventricular systolic function. Left ventricular ejection fraction is estimated at 35 %. There is mild global hypokinesis with severe hypokinesis of basal to mid inferolateral, apical lateral, basal to apical anterior and apical church. Abnormal diastolic function. 3. Normal right ventricular size and systolic function. 4. Normal pulmonary artery pressure. 5. No prior similar studies to compare. Danitza Collado MD (Electronically Signed) Final Date: 16 Nov 2020 15:43 S
[2020-11-16 02:20] LABS: Glucose Point of Care 426 mg/dL (70-110)
[2020-11-16] MEDS: carvedilol 3.125 mg Tablet PO (03:01)
[2020-11-16] MEDS: atorvastatin 40 mg Tablet 80 MG PO (03:01)
[2020-11-16] MEDS: famotidine 20 mg/2 mL INJ IVP (03:02)
[2020-11-16] MEDS: insulin regular-human 250 UNIT in sodium chloride 0.9% 250 ML 11 UNIT IV (03:15)
--- NOTE | 2020-11-16 03:36 | PC.NURSE ---
Insulin gtt Low target: 150, High target: 180 with instructions to use DKA protocol with exception to shut off gtt when blood sugar is at low target range x1 hr, recheck blood sugar and if above target range turn gtt back on and continue per Dr. Plascencia.
[2020-11-16] MEDS: hyDRALAzine 20 mg/mL INJ 1 mL 10 MG IVP (03:50)
[2020-11-16 04:20] LABS: Glucose Point of Care 340 mg/dL (70-110)
[2020-11-16 04:25] LABS: Troponin 5 2HR 1020 ng/L (0-15)
[2020-11-16 04:26] LABS: Troponin 5 2HR Delta 643 ABS# (0-10)
[2020-11-16 05:16] LABS: Glucose Point of Care 274 mg/dL (70-110)
--- NOTE | 2020-11-16 05:45 | ECG_ITS ---
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 Measurements Intervals [place] Rate: 121 P: -21 MD: 126 QRS: -16 QRSD: 140 T: 136 QT: 342 QTc: 486 Interpretive Statements SINUS TACHYCARDIA LEFT BUNDLE BRANCH BLOCK [120+ ms QRS DURATION, 80+ ms Q/S IN V1/V2, 85+ ms R IN I/aVL/V5/V6] Compared to ECG 11/16/2020 00:08:19 Left bundle-branch block now present First degree AV block no longer present Intraventricular conduction delay no longer present Electronically Signed On 11-17-2020 7:04:22 CDT by Danitza Collado M.D. [id number]
[2020-11-16 06:26] LABS: Glucose Point of Care 155 mg/dL (70-110)
[2020-11-16 06:26] LABS: Basophils % 0.3 %; Eosinophils # 0.1 10^3/uL (0.0-0.8); Eosinophils % 0.6 %; Hematocrit 38.9 % (42.0-52.0); Lymphocytes # 1.2 10^3/uL (0.8-4.8); Lymphocytes % 9.7 %; Mean Corpuscular HGB Conc 33.4 g/dL (30.0-36.0); Mean Corpuscular Hemoglobin 32.8 pg (28.0-34.0); Mean Corpuscular Volume 98.2 fL (80-94); Mean Platelet Volume 11.2 fL (7.4-10.4); Monocytes # 0.7 10^3/uL (0.2-0.9); Monocytes % 5.9 %; Neutrophils % 83.1 %; Nucleated Red Blood Cells % 0 %; Platelet Count 182 10^3/cmm (130-400); Red Blood Count 3.96 10^6/uL (4.1-5.3); Red Cell Distribution Width 11.8 % (12.1-15.1); White Blood Count 12.5 10^3/uL (4.0-10.0)
[2020-11-16 06:47] LABS: Blood Urea Nitrogen 45 mg/dL (8-23); Calcium 9.6 mg/dL (8.5-10.5); Carbon Dioxide 25 mmol/L (22-29); Chloride 106 mmol/L (98-107); Glucose 152 mg/dL (65-115); Magnesium 2.1 mg/dL (1.7-2.3); Osmolality Calculated 313 mOsm/kg (285-295); Sodium 144 mmol/L (136-145)
[2020-11-16 06:50] LABS: Anion Gap 17.8 (5-19); Potassium 4.8 mmol/L (3.5-5.1)
--- NOTE | 2020-11-16 07:00 | PM.CONSULT ---
Providers/Reason For Consult Consulting Physican/Specialty*: Dr. Collado, cardiology Reason for Consult*: Non-ST elevation PR Attending Physician: Max Plascencia Primary Care Provider: Claus Wells MD History of Present Illness History of Present Illness Neeraj Sheridan is a 75 year old male with past medical history of CAD s/p CABG x3 in 2002, multiple stents placement in 2010, 2011 and most recently in 2018, hypertension, dyslipidemia, history of chronic stable angina, history of statin intolerance, diabetes mellitus diagnosed in (hemoglobin A1c 6.8), stage IV chronic kidney disease with a baseline creatinine of 1.8-2.1 secondary to diabetic nephropathy (followed by Cande Renee NP at nephrology clinic at [facility]), anemia of chronic kidney disease, vitamin D deficiency and secondary renal hyperparathyroidism, obesity and melanoma s/p radical resection. He denies any history of prior PR or CVA. His primary care physician is Dr. 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 in [place]. He also has history of intermittent hyperkalemia. He usually takes Bumex 1 mg and metolazone 5 mg as needed for worsening swelling in his legs and shortness of breath that usually helps him within few days. He was in his usual state of health until around 9 PM yesterday when he developed shortness of breath and took metolazone but her shortness of breath continued to worsen and he noticed sweating along with chest tightness and pain in his left forearm and hand and hence he decided to come to the hospital for further evaluation. On arrival his baseline troponin T was 377 which increased at 2 hours to 1020 and at 6 hours to 2461. Potassium 6.2, BUN 44 and creatinine 2.6. NT proBNP 12,017.Chest x-ray with prominent pulmonary vasculature suggesting of possible volume overload or heart failure. EKG on arrival showed sinus tachycardia. Left bundle branch block with ST depression more pronounced in anterolateral leads. No prior EKG to compare patient received Lasix 80 mg IV x1 and Lovenox 100 mg subcu x1 . He was placed on BiPAP overnight and at the time of evaluation is currently on 2 L of oxygen via nasal cannula. Overnight urine output of 1300 mL.-7 lb?. At the time of evaluation patient states he is having some chest heaviness and shortness of breath has improved since admission History was obtained from patient's chart and records obtained from [facility]. Last documented echocardiogram from May 2018 showed normal left ventricle size and systolic function with a visually estimated ejection fraction of 55 to 60% and abnormal diastolic function with elevated filling pressure. Normal right ventricular size and systolic function. Normal right atrium. Trace mitral valve regurgitation. Mild tricuspid valve regurgitation with no evidence of pulmonary hypertension. I do not have any records from his nail mill worker. Patient denies having any stress test in the last 3 to 4 years. He does not regularly check his blood pressure but lately his blood pressure has been running high per patient. Review of Systems General: Reports: 10 or more systems reviewed and unremarkable except in HPI and below Const: Reports: fatigue; Denies: fever(s) or chills Eyes: Denies: change in vision ENMT: Denies: change in hearing Card: Reports: chest pain, dyspnea on exertion and orthopnea; Denies: irregular heart rhythm or edema Resp: Reports: dyspnea; Denies: productive cough, non-productive cough or wheezing GI: Denies: abdominal pain, nausea, vomiting or hematochezia : Denies: hematuria Musc: Reports: back pain Skin/Breast: Denies: rash Neuro: Denies: headache(s) Psych: Denies: anxiety or depression Meds/Allergies Home Medications and Allergies Home Medications Medication Instructions Recorded Confirmed Last Taken Type aspirin 81 mg PO BEDTIME 11/16/20 11/16/20 Unknown History bumetanide 1 mg PO BID 11/16/20 11/16/20 Unknown History carvedilol 12.5 mg PO BID 11/16/20 11/16/20 Unknown History cholecalciferol (vitamin D3) 25 mcg PO DAILY 11/16/20 11/16/20 Unknown History [Vitamin D3] ezetimibe 10 mg PO DAILY 11/16/20 11/16/20 Unknown History glimepiride 2 mg PO BID 11/16/20 11/16/20 Unknown History insulin glargine [Lantus Solostar 50 unit SUBCUT DAILY 11/16/20 11/16/20 Unknown History U-100 Insulin] isosorbide mononitrate 120 mg PO DAILY 11/16/20 11/16/20 Unknown History metolazone 5 mg PO DAILY PRN 11/16/20 11/16/20 Unknown History ranolazine 1,000 mg PO BID 11/16/20 11/16/20 Unknown History Allergies Allergy/AdvReac Type Severity Reaction Status Date / Time ferrous sulfate Allergy Unknown Verified 11/16/20 08:09 lovastatin [From Mevacor] Allergy ALGY-Wheezi Verified 11/16/20 08:09 ng magnesium sulfate Allergy ADR-Gastrointestinal Verified 11/16/20 08:09 Upset niacin Allergy Unknown Verified 11/16/20 08:09 [From Niaspan Extended-Release] pravastatin [From Pravachol] Allergy ADR-Dizzine Verified 11/16/20 08:09 ss [id number]-[id number] Reductase Allergy ADR-Muscle Verified 11/16/20 08:09 Inhibitor Pain Current Medications Current Medications Generic Name Dose Route Start Last Admin Trade Name Freq PRN Reason Stop Dose Admin Atorvastatin Calcium 80 mg 11/16/20 01:45 11/16/20 03:01 Atorvastatin 40 Mg Tablet PO 80 mg Q24H WOJCIECH Administration Carvedilol 3.125 mg 11/16/20 01:45 11/16/20 03:01 Carvedilol 3.125 Mg Tablet PO 3.125 mg Q12H WOJCIECH Administration Famotidine 20 mg 11/16/20 01:41 11/16/20 03:02 Famotidine 20 Mg/2 Ml Inj IVP 20 mg Q24H WOJCIECH Administration Hydralazine HCl 10 mg 11/16/20 01:54 11/16/20 03:50 Hydralazine 20 Mg/Ml Inj 1 Ml IVP 10 mg Q4H PRN Administration SBP above 155 Insulin Human Regular 250 unit 252.5 mls @ 0 mls/hr 11/16/20 01:30 11/16/20 06:15 / Sodium Chloride IV 0 mls/hr .Q0M WOJCIECH 0 mls/hr Titration Protocol Per Protocol PFSH Acute PFSH: Medical History CAD (coronary artery disease) CKD (chronic kidney disease) HTN (hypertension) Hyperlipidemia Vitals/I&O/Wt Last Vital Signs Temp 98.4 F 11/16/20 04:24 Pulse 110 H 11/16/20 06:00 Resp 29 H 11/16/20 06:00 BP 160/90 11/16/20 06:00 Pulse Ox 96 11/16/20 06:00 11/15/20 11/16/20 11/16/20 22:59 06:59 14:59 Intake Total 32.894 / 32.894 Output Total 1325 / 1325 Balance -1292.106 / -1292.106 Weight last 48 hrs Weight 213 lb 9.6 oz Weight 220 lb Physical Exam Narrative: EXAM NARRATIVE: GENERAL: Obese man sitting propped up in bed in mild respiratory distress HEENT: Pupils equal round reactive to light. No pallor or icterus. NECK: Short thick neck, No JVD appreciated. No carotid bruit. CARDIOVASCULAR SYSTEM: S1-S2 regular. Tachycardia present. no S3. No murmur rubs or gallops. RESPIRATORY SYSTEM: Air entry equal bilaterally. No wheezes. Bilateral basal crackles+ no use of accessory muscles. ABDOMEN: Soft, obese, nontender and nondistended. Normal bowel sounds present. EXTREMITIES: No cyanosis or clubbing. No edema. AUTOTRANSFUSIONIST: Patient is alert oriented ?3. No focal neurological deficits. SKIN: Normal turgor and temperature. PSYCH: Normal insight and judgment. Urinary Catheter Management^: Alejandre: Cath Placed During This Visit: yes Reason for Continuing Indwelling Catheter: Accurate Measurement of Urinary Output in Critically Ill Patients Urinary Catheter Date of Insertion: 11/16/20 Urinary Catheter Time of Insertion: 03:05 Data Other Data: Attestation for Other Data: I personally reviewed and interpreted the following: Other data: Transthoracic echocardiogram 16 Nov 2020 CONCLUSIONS 1. This is a technically difficult study. Ultrasound enhancing agent Optison was used per protocol. 2. Mildly increased left ventricular cavity size. Moderately decreased left ventricular systolic function. Left ventricular ejection fraction is estimated at 35 %. There is mild global hypokinesis with severe hypokinesis of basal to mid inferolateral, apical lateral, basal to apical anterior and apical church. Abnormal diastolic function. 3. Normal right ventricular size and systolic function. 4. Normal pulmonary artery pressure. 5. No prior similar studies to compare. A&P Assessment and plan (1) Non-ST elevation PR (NSTEMI): Sudden onset dyspnea with some arm and hand pain (angina equivalent), significantly elevated troponin and echocardiogram with wall motion abnormality in LAD and circumflex artery territory. -There seems to be drop in LV function as well when compared to echocardiogram report dated May 2018. -Left bundle branch block of unclear time of onset no prior EKG to compare. -I will plan to proceed with coronary angiogram. Patient has high risk of contrast-induced nephropathy and ending up on dialysis. -Risks and benefits were discussed with the patient and his . Alternate management options were discussed with the patient as well. Possible complications were reviewed with the patient as well. -Patient initially was really hesitant to undergo any procedures at [facility]. He would like to go to his nail mill worker in [place]. -The option of inpatient transfer was discussed with the patient as well. However patient would like to be discharged home and follow-up with his nail mill worker for further work-up. He was informed that medical management is an option as well however not the best given overall findings. After discussing with his patient reluctantly agreed to proceed with coronary angiogram. -His case was discussed with Dr. Castro. -Patient met Dr. Castro and plan is to proceed for the procedure tomorrow morning. -His last cardiac catheterization report from 2018 has been requested. Status: Acute (2) Congestive heart failure: Known congestive heart failure by history. Preserved LV function based on last echo report obtained. Lasix 40 mg IV x1. Plan to repeat another dose later this afternoon based on urine output. Status: Acute Qualifiers: Heart failure chronicity: acute on chronic Heart failure type: unspecified Qualified Code(s): I50.9 - Heart failure, unspecified (3) Pulmonary edema: Status: Acute Qualifiers: Chronicity: acute Qualified Code(s): J81.0 - Acute pulmonary edema (4) CAD (coronary artery disease): Status: Acute Qualifiers: Coronary Disease-Associated Artery/Lesion type: bypass graft [place] vs. transplanted heart: [place] heart (5) HTN (hypertension): Status: Acute Qualifiers: Hypertension type: essential hypertension Qualified Code(s): I10 - Essential (primary) hypertension (6) Hyperlipidemia: Status: Acute Qualifiers: Hyperlipidemia type: unspecified Qualified Code(s): E78.5 - Hyperlipidemia, unspecified (7) CKD (chronic kidney disease): Status: Acute Qualifiers: Chronic kidney disease stage: stage 4 (severe) Qualified Code(s): N18.4 - Chronic kidney disease, stage 4 (severe) Additional A&P Information CARLEE on CKD Tachycardia: Increase Coreg to 12.5 mg twice a day Obesity Anemia of chronic kidney disease Leukocytosis Thank you for allowing me to participate in patient's care. Please feel free to call with questions or concerns Consult Attestations Medical Necessity Statement: Patient needs hospital stay for management of NSTEMI pulmonary edema and CARLEE on CKD. Time Spent in Patient Care: Greater than 35 minutes (>than 50% of time spent in counselling and/or direct pt care on unit). Coding Level of Care Code Acute Cell Biologist for [facility] Diagnoses Non-ST elevation PR (NSTEMI) I21.4 Congestive heart failure I50.9 Heart failure chronicity: acute on chronic Heart failure type: unspecified Pulmonary edema J81.0 Chronicity: acute CAD (coronary artery disease) I25.10 Coronary Disease-Associated Artery/Lesion type: bypass graft [place] vs. transplanted heart: [place] heart HTN (hypertension) I10 Hypertension type: essential hypertension Hyperlipidemia E78.5 Hyperlipidemia type: unspecified CKD (chronic kidney disease) N18.4 Chronic kidney disease stage: stage 4 (severe)
[2020-11-16 07:01] LABS: Troponin 5 6HR 2461 ng/L (0-15); Troponin 5 6HR Delta 2084 ng/L (0-12)
[2020-11-16 07:04] LABS: Chol HDL Ratio 4.39 mg/dL (1.0-5.00); Cholesterol 202 mg/dL (0-200); HDL Cholesterol 46 mg/dL (60-100); LDL Cholesterol Calculated 120 mg/dL (50-129); LDL HDL Ratio 2.61 RATIO (0.00-3.22); Triglycerides 178 mg/dL (0-150)
[2020-11-16 07:43] LABS: Estmated Average Glucose 148; Hemoglobin A1C 6.8 % (4.0-6.0)
[2020-11-16 08:34] LABS: Glucose Point of Care 152 mg/dL (70-110)
[2020-11-16] MEDS: carvedilol 6.25 mg Tablet PO ×2 (09:03→13:32)
[2020-11-16] MEDS: aspirin 81 mg EC Tablet 162 MG PO (09:03)
[2020-11-16] MEDS: FUROsemide 10 mg/mL SDV 4mL 40 MG IVP (09:03)
--- NOTE | 2020-11-16 09:17 | PC.CHAP ---
Pastoral Care Encounter/Spiritual Assessment Type of Contact [] Declined umbrella tipper hand visit [] Patient/Family/Request visit [] Outpatient visit [] Follow-up visit [] Physician referral [] Code/Alert [x] Routine visit [] Staff referral [] Actively dying [] Patient sleeping [] Family support [] [] Out of room [] Palliative care [] [] Receiving care in room [] Pre-surgical visit [] Trauma [] Long length of stay [x] ICU visit [] Other: Relational/Emotional Strength [] Patient feels connected with others/family/visitors/staff [] Distress [] Loneliness/isolation [] Abandonment Spirituality of Patient [] Person of Estephania [] Attends Church of their Estephania [] Believes in Prayer [] Reads Bible or Hindu materials [] There are Spiritual issues to be addressed Risk Control Consultant Interventions [x] Prayer [] Active listening [] Non-anxious presence [] Spiritual/emotional support [] Crisis/trauma care [] Spiritual counseling [] Bereavement support [] Provided bereavement packet [] Provided Bible/devotional materials [] Provided toy/stuffed animal, coloring book to patient or family member [] Provided Communion [] Anointing/[place] [] Salvation [x] Completed spiritual assessment [] Other: Impact on Illness or Injury [] Angry [] Fearful [] Anxious [] Often cries [] Exhaustion [] Unable to work [] Unable to attend zoroastrian [] Unable to walk/stand [] Unable to read [] Unable to drive [] Unable to eat/drink [] Unable to sleep [] Unable to be with family [] Patient intubated [] Other: Summary Time spent with patient
--- NOTE | 2020-11-16 09:41 | PC.NURSE ---
[address] Morgan. Reviewed lab results, vital signs, UOP, and medications. Orders for S/S insulin. [address] Collado. Reviewed trop levels, kidney function, medications, and heart rhythm. Patient's at bedside. Discussed plan of care, may need heart cath. Dr. Collado to review ECHO results and states she will come back to reassess him.
--- NOTE | 2020-11-16 10:57 | P.PN_ITS ---
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 given his past medical history, he tells me that he does get periodic shortness of breath, and metolazone helps, he tells me that he has not been hospitalized in the last 2 years or so for CHF exacerbations, typically when he becomes short of breath he will take an extra metolazone, he tells me yesterday he had a sudden onset of chest pain and shortness of breath, which improved with Lasix, nitro, and BiPAP therapy in the emergency room, currently chest pain-free, no shortness of breath, he tells me he gets shortness of breath with minimal exertion which is his baseline, he has been dealing with this for many years, currently on 5 L Vitals/I&O/Wt Last Vital Signs Temp 99.3 F 11/16/20 07:42 Pulse 113 H 11/16/20 10:45 Resp 23 H 11/16/20 10:45 BP 163/99 11/16/20 10:30 Pulse Ox 94 11/16/20 10:45 11/15/20 11/16/20 11/16/20 22:59 06:59 14:59 Intake Total 32.894 / 32.894 Output Total 1325 / 1325 650 / 650 Balance -1292.106 / -1292.106 -650 / -650 Weight last 48 hrs Weight 96.887 kg Weight 99.79 kg Physical Exam Const: COMMON NORMALS: no acute distress GENERAL APPEARANCE: cooperative and comfortable Neck/C-Spine: COMMON NORMALS: no JVD Resp: COMMON NORMALS: normal respiratory effort, No retractions and No use of accessory muscles AUSCULTATION: crackles Cardio: COMMON NORMALS: no JVD, regular rate, regular rhythm, S1 normal heart sound present and S2 normal heart sound present RATE: regular rate RHYTHM: regular rhythm HEART SOUNDS: S1 normal heart sound present, S2 normal heart sound present and Murmur heart sound present GI: COMMON NORMALS: Normal to inspection, nondistended, normoactive bowel sounds present, Soft to palpation, non-tender, No hepatosplenomegaly present and no masses PALPATION: Yes Soft to palpation and Yes No hepatosplenomegaly present Extremity: COMMON NORMALS: no pedal edema Urinary Catheter Management^: Alejandre: Cath Placed During This Visit: yes Reason for Continuing Indwelling Catheter: Accurate Measurement of Urinary Output in Critically Ill Patients Urinary Catheter Date of Insertion: 11/16/20 Urinary Catheter Time of Insertion: 03:05 Data : 11/16/20 06:05 11/16/20 06:05 A&P Assessment and plan (1) Acute and chronic respiratory failure with hypoxia: Secondary to acute flash pulmonary edema Plan: -Continue ICU level monitoring -Continue BiPAP as needed during the day, schedule during the night -Diuretic therapy as directed by cardiology -Fluid restrictions 1500 cc -Monitor respiratory status closely, monitor urine output, monitor creatinine, potassium -Patient is a limited code, does not want to be intubated Status: Acute (2) Non-ST elevation TN (NSTEMI): with chest pain and shortness of breath Currently symptom-free History of CABG, 5 stents Baseline troponin 377, 6-hour 2084, 2461 BNP 56909 EKG shows sinus tachycardia, left bundle branch block Etiology likely related to acute flash pulmonary edema, however given prior cardiac history, cannot rule out underlying cardiovascular etiology Plan: -Continue aspirin, statin, Coreg -Received 1 dose of therapeutic Lovenox, for CKD, continue heparin drip after 24 hours -Continue Ranexa, Imdur -Monitor for chest pain -Serial EKGs, serial troponins, telemetry monitoring -Cardiology on consult Status: Acute (3) Pulmonary edema: Status: Acute (4) Congestive heart failure: Status: Acute Qualifiers: Heart failure chronicity: acute on chronic Heart failure type: unspecified Qualified Code(s): I50.9 - Heart failure, unspecified (5) HTN (hypertension): Status: Acute (6) Hyperlipidemia: Status: Acute (7) CAD (coronary artery disease): Status: Acute (8) CKD (chronic kidney disease): -Baseline creatinine unknown -Creatinine 2.6, -Likely component of cardiorenal syndrome -Renal ultrasound ordered, Alejandre in place -Receiving intermittent diuresis Status: Acute Additional A&P Information 75-year-old male with past medical history of coronary artery disease, CHF, advanced chronic kidney disease, diabetes who presents with chest tightness and shortness of breath. Acute onset. CODE STATUS. Limited code. He is okay with cardiovascular resuscitation but does not want to be intubated or mechanically ventilated. He is okay with BiPAP. Hypertension. Currently on Coreg Hyperkalemia. We will review his home medications when med rec is done. We will do necessary adjustments. I am hoping that with furosemide and insulin drip his hyperkalemia will improve quickly. Will recheck in the morning. Reported daily alcohol use. We will start vitamins and CIWA protocol. No evidence of withdrawals at this time. Uncontrolled diabetes. Transition off insulin drip, to subcu insulin, A1c 6.8 DVT prophylaxis. Received full dose of Lovenox in the emergency room. We will decide on anticoagulant after discussions with school bus driver in the morning. Teds and SCDs for now. The plan of care was discussed with the patient and his . They verbalized understanding and agreement. Critical care time spent over 55 minutes Attestations Medical Necessity Statement*: Patient requires hospitalization, for acute respiratory failure secondary to pulmonary edema, NSTEMI, requiring ICU level of care, critical care time spent over 55 minutes Coding Level of Care Code Acute Civil Celebrant for [facility] Diagnoses Acute and chronic respiratory failure with hypoxia J96.21 Non-ST elevation TN (NSTEMI) I21.4 Pulmonary edema J81.1 Congestive heart failure I50.9 Heart failure chronicity: acute on chronic Heart failure type: unspecified HTN (hypertension) I10 Hyperlipidemia E78.5 CAD (coronary artery disease) I25.10 CKD (chronic kidney disease) N18.9
[2020-11-16] MEDS: ranolazine (12HR) 500 mg Tablet 1000 MG PO ×2 (11:13→17:31)
[2020-11-16 11:20] LABS: Glucose Point of Care 221 mg/dL (70-110)
[2020-11-16 11:20] LABS: Glucose Point of Care 105 mg/dL (70-110)
--- NOTE | 2020-11-16 12:51 | PC.NURSE ---
[address] signs [address] Dr[address] Collado. Clarified order for PRN IV hydralazine. Orders to hold hydralazine for now and she will be rounding on patient soon.
[2020-11-16] MEDS: perflutren protein-a microsphr 0.22 mg/mL SDV 3 mL IV (13:41)
--- NOTE | 2020-11-16 15:25 | PC.NURSE ---
1305 Dr. Collado at bedside. Orders for one time dose of Coreg for BP and HR. 1325 Dr. Castro at bedside. Reviewed label sewer procedure with patient and . Plans for cath in am. Ok to eat now, NPO after midnight.
--- NOTE | 2020-11-16 15:46 | ECG_ITS ---
[facility] Test Date: 2020-11-16 Pat Name: Neeraj Sheridan Department: Room: ICU03 Gender: Male Field Manager: : 1945 Requested By: Danitza Collado Order Number: [id number] Grant MD: Danitza Collado M.D. Measurements Intervals Ida Rate: 95 P: -10 IN: 124 QRS: 10 QRSD: 114 T: 171 QT: 391 QTc: 493 Interpretive Statements SINUS RHYTHM MODERATE INTRAVENTRICULAR CONDUCTION DELAY [110+ ms QRS DURATION] ST DEVIATION AND MODERATE T-WAVE ABNORMALITY, CONSIDER ANTEROLATERAL ISCHEMIA [-0.1+ mV T WAVE IN V3-V6] Compared to ECG 11/16/2020 03:04:42 Intraventricular conduction delay now present T-wave abnormality now present Possible ischemia now present Sinus tachycardia no longer present Left bundle-branch block no longer present Electronically Signed On 11-17-2020 7:01:00 CDT by Danitza Collado M.D. [email or web address]
[2020-11-16] MEDS: clopidogrel 300 mg Tablet PO (16:28)
[2020-11-16 16:32] LABS: Glucose Point of Care 190 mg/dL (70-110)
[2020-11-16] MEDS: carvedilol 12.5 mg Tablet PO (20:08)
[2020-11-17] VITALS (95 sets, daily range): BP systolic 85–151; BP diastolic 56–101; PULSE 83–121; RESP 0–34; TEMP 36.4–37.3; O2SAT 81–100
[2020-11-17] MEDS: heparin 5,000 unit/mL INJ 1 mL IV (00:42)
[2020-11-17] MEDS: heparin drip 25,000 UNIT/500 ML PREMIX 27 UNIT IV (00:42)
[2020-11-17] MEDS: atorvastatin 40 mg Tablet 80 MG PO (00:48)
[2020-11-17] MEDS: famotidine 20 mg/2 mL INJ IVP (00:50)
[2020-11-17] MEDS: sodium chloride 0.9% 1,000 ML 50 ML IV (01:27)
--- NOTE | 2020-11-17 01:36 | PC.NURSE ---
Heparin gtt Called Dr. Castro to verify heparin gtt and verbal order given to day shift nurse to turn off gtt at 05:00. Pt shaved and prepped for heart cath procedure.
[2020-11-17 04:59] LABS: Platelet Count 147 10^3/cmm (130-400)
--- NOTE | 2020-11-17 05:47 | XACV_ITS ---
Exam Room: [facility] Ht: 180 cm Wt: 97 kg BSA: 2.22 m2 Gender: Male : 1945 Any Known Allergies: Other Exam Priority: Routine Procedure(s): Procedure Description: Diagnostic procedure Diagnostic Cath Status: Urgent Diagnostic Findings * Left Anterior Descending is occluded, patent SEVILLA to LAD. * SVG to OM and RCA not visualized. * Brief attempt at wiring the distal Left main artery was made, however, it was a YARD LOADER OPERATOR and further attempts were aborted. * Circumflex is occluded. * Left Main to Proximal Left Anterior Descending: total occlusion, MORIS: 0 flow. * Left Internal Mammary Artery to Distal Left Anterior Descending graft: patent. * Distal Right Coronary Artery: moderate 50% stenosis, MORIS: 3 flow. * One graft visualized. * Coronary angiography shows right dominance. Conclusions 1. There is total occlusion coronary artery disease with multivessel disease. 2. One coronary graft visualized. SEVILLA to LAD patent. SVG to OM and SVG to RCA occluded. Likely culprit for NSTEMI was occluded SVG to OM as RCA is patent. 3. Patient has prior CABG. Recommendations * Transfer back to ICU. * Conitnue dual antiplatelet agents. * Will need IV fluids as has significant CKD. Interventional RX Recommendation: medical therapy and/or counseling Diagnostic RX Recommendation: medical therapy and/or counseling Pressures Phase:Rest AO : 471 / 449 ( 471 ) @ 5:21:00 AM 141 / 73 ( 100 ) @ 5:24:00 AM 143 / 70 ( 97 ) @ 5:33:00 AM 118 / 62 ( 81 ) @ 5:34:00 AM Clinical Evaluation EBL: 5mL-10mL Procedural Details Procedure Consent Obtained. Current Diagnosis : NSTEMI. Pre-Procedure Time Out. Identified patient by full name and date of as verbalized by the patient/guarantor. Does the consent match the physician's order: Yes. Accurate & Complete Informed Consent: Yes. Inpatient/Outpatient History & Physical on Chart: Yes. If H&P is completed, is and addenduem needed: No; If yes, is the addendum complete: N/A. Visualize and Verify Site with Patient/Guarantor: N/A. Relevant Radiology Images available: Yes. Pre-op teaching completed and patient verbalized understanding. The risks, benefits, and alternatives of sedation and/or procedure were discussed by physician. The patient agrees to continue. Procedure started. [facility] Clinical Fraility Score: 3: Managing Well. Jet Piercer Operator Indications: ACS > 24 hours. Chest Pain Symptom Assessment: Typical Angina Symptoms. Correct patient, site and procedure confirmed by cath team. Current diagnosis: NSTEMI. PERRLA. Strong, equal hand health screener bilaterally. Lungs clear x 5 lobes. IV Site on Arrival: 18 gauge in the left anticubital. IV Fluids: 0.9% NaCl at KVO. 100 mL infused prior to greens laborer. Oxygen started at 2liters/min via nasal canula. bilateral groins was prepped with chloroprep then draped in the usual sterile fashion. Physician notified. Baseline sample Acquired. HR: 95 BPM. Physician arrived. Physician scrubbed in. Immediate Pre-Procedure Time Out. Correct Patient: Yes; Correct Procedure: Yes; Correct Site: Yes; Correct Patient Position: Yes; Correct Supplies: Yes; Dried Flammable Prep: Yes; Blood Products Available: N/A;. Lidocaine 1% infiltrated to the right groin. Arterial access obtained with micropuncture set. A 5 [facility] lucian JL4 catheter in over wire. Multiple views taken of left coronary artery. Catheter removed over the standard wire. A 5 [facility] lucian JR4 catheter in over wire. Multiple views taken of right coronary artery. Catheter removed over the exchange wire. A 5 [facility] lucian IM guide catheter in over wire. SEVILLA to LAD visualized. Catheter removed over the exchange wire. A 5 [facility] lucian AL1 catheter in over wire. Catheter removed over the standard wire. A 5 [facility] lucian Angled Pig catheter in over wire. Aortogram performed in AP @ 10 mL/second for a total of 30 mL. Jamilah Lovelace RT, for monitor. Catheter out. 6 st lucian LCB guide catheter was inserted over the wire. Guide catheter out. Wire out. 6 st lucian XB 3.5 guide catheter was inserted over the wire. Runthrough guidewire was advanced through the guide catheter to lesion in the prox Circ. Wire out. Guide catheter out. 6F angio-seal placed without complications. No signs or symptoms of hematoma noted. Sterile dressing applied per usual sterile fashion. Lot#[id number]. Post Procedure: Pulses reassessed and unchanged. PERRLA. Strong, equal hand health screener bilaterally. No VTE prophylaxis required. Medication's Wasted: Other = fentanyl 50 mg. Medication's Wasted: Other = versed 1 mg. Medication's Wasted: Heparin = 2000 units. Medication's Wasted: Lidocaine 1% = 4 mL. Total IV fluids: 75 mL. Contrast type used: Visipaque 320 mgI/mL, 500 mL bottle. Contrast Material : Visipaque 156 ml. A Angio-Seal VIP ([facility]) was successful obtaining hemostatsis at the Right Femoral artery insertion site. Post-op diagnosis: occluded SVG graft to OM, severe multivessel CAD. Complications: none. Estimated blood loss: 5mL-10mL. Procedure completed. Patient transferred by bed to ICU. Vital chart was stopped. Access Site Site: Right Femoral artery Sheath Size: 6 Fr Hemostasis Method: Angio-Seal VIP ([facility]) Hemostasis Success: Successful Procedure Medications Start: 6:08 AM Stop: 6:08 AM Medication: Versed Amount: 1 mg Route: I.V. Start: 6:08 AM Stop: 6:08 AM Medication: Fentanyl Amount: 50 mcg Route: I.V. Start: 6:34 AM Stop: 6:34 AM Medication: Versed Amount: 1 mg Route: I.V. Start: 6:51 AM Stop: 6:51 AM Medication: Heparin Amount: 2000 units Route: I.V. Start: 6:52 AM Stop: 6:52 AM Medication: Versed Amount: 1 mg Route: I.V. I, the attending physician, have reviewed and verified all procedure medications. Yes, all medications given per verbal order History/Risk Factors Hypertension: Yes Dyslipidemia: Yes Peripheral Arterial Disease (PAD): No Myocardial Infarction (MA): No Obesity: No Renal Disease: No Prior Interventions PCI: Yes CABG: Yes Valve Surgery: No Report Signatures Finalized by Jose Miguel Castro MD on 12/01/2020 01:04 PM
--- NOTE | 2020-11-17 06:00 | W.PM.OPSUD ---
Surgery/Procedure H&P Update DATE OF PROCEDURE: November 17, 2020 DATE H&P PERFORMED: 11/16/20 H&P UPDATE INFORMATION: I have reviewed H&P completed within last 30 days, I have examined patient prior to procedure and No changes to prior documentation PREOP DIAGNOSIS: NSTEMI PRIMARY INDICATION FOR PROCEDURE: NSTEMI PLANNED PROCEDURE: Left heart cath with possible percutaneous coronary intervention PATIENT REASSESSED PRIOR TO SEDATION, WITH NO CHANGE NOTED: Yes PHYSICAL EXAM: alert, oriented x 3, clear to auscultation bilaterally and regular rate & rhythm AIRWAY EVAL/ANESTHESIA PLAN: ASA III, Monitored Anesthesia, Local Anesthesia, Risks, benefits & alternatives of sedation and/or procedure discussed and Patient agrees to continue as planned
[2020-11-17 08:02] LABS: Glucose Point of Care 144 mg/dL (70-110)
[2020-11-17 08:03] LABS: Basophils % 0.4 %; Eosinophils # 0.2 10^3/uL (0.0-0.8); Eosinophils % 2.5 %; Hematocrit 32.2 % (42.0-52.0); Hemoglobin 10.4 g/dL (11.7-16.6); Lymphocytes % 10.3 %; Mean Corpuscular HGB Conc 32.3 g/dL (30.0-36.0); Mean Corpuscular Hemoglobin 32.1 pg (28.0-34.0); Mean Corpuscular Volume 99.4 fL (80-94); Mean Platelet Volume 11.1 fL (7.4-10.4); Monocytes # 0.8 10^3/uL (0.2-0.9); Monocytes % 7.9 %; Neutrophils # 7.52 10^3/uL (1.8-7.7); Neutrophils % 78.6 %; Nucleated Red Blood Cells % 0 %; Platelet Count 133 10^3/cmm (130-400); Red Blood Count 3.24 10^6/uL (4.1-5.3); Red Cell Distribution Width 11.8 % (12.1-15.1); White Blood Count 9.6 10^3/uL (4.0-10.0)
[2020-11-17 08:31] LABS: Blood Urea Nitrogen 47 mg/dL (8-23); Carbon Dioxide 26 mmol/L (22-29); Chloride 102 mmol/L (98-107); Glucose 132 mg/dL (65-115); Magnesium 1.7 mg/dL (1.7-2.3); Osmolality Calculated 298 mOsm/kg (285-295); Sodium 137 mmol/L (136-145)
[2020-11-17 08:35] LABS: Anion Gap 13.8 (5-19); Potassium 4.8 mmol/L (3.5-5.1)
[2020-11-17] MEDS: aspirin 81 mg EC Tablet 162 MG PO (09:06)
[2020-11-17] MEDS: ranolazine (12HR) 500 mg Tablet 1000 MG PO ×2 (09:07→18:05)
[2020-11-17] MEDS: carvedilol 12.5 mg Tablet PO ×2 (09:07→21:01)
[2020-11-17] MEDS: clopidogrel 75 mg Tablet PO (09:08)
[2020-11-17] MEDS: folic acid 1 mg Tablet PO (09:52)
[2020-11-17] MEDS: multivitamin therapeutic Tablet 1 TAB PO (09:52)
[2020-11-17] MEDS: thiamine 100 mg Tablet PO (09:52)
[2020-11-17] MEDS: isosorbide mononitrate ER 60 mg Tablet 120 MG PO (09:52)
--- NOTE | 2020-11-17 09:55 | PC.NURSE ---
Received patient from medical lab director staff at 0715. Vitals are within normal limits (see chart). Patient is alert and oriented to person, place, time, and situation. Sheath has already been removed. Nurse educated patient on need to lay flat. No hematoma or obvious bleeding from sheath site. Dressing on sheath site is 2x2 with tegaderm. Scant amount of serous drainage apparent in the dressing. Pt denies pain and has no concerns or complaints at this time. at bedside.
--- NOTE | 2020-11-17 10:28 | PC.CHAP ---
Pastoral Care Encounter/Spiritual Assessment Type of Contact [] Declined enterprise manager visit [] Patient/Family/Request visit [] Outpatient visit [] Follow-up visit [] Physician referral [] Code/Alert [x] Routine visit [] Staff referral [] Actively dying [] Patient sleeping [x] Family support [] [] Out of room [] Palliative care [] [] Receiving care in room [] Pre-surgical visit [] Trauma [] Long length of stay [x] ICU visit [] Other: Relational/Emotional Strength [] Patient feels connected with others/family/visitors/staff [] Distress [] Loneliness/isolation [] Abandonment Spirituality of Patient [] Person of Estephania [] Attends Gnosticist of their Estephania [] Believes in Prayer [] Reads Bible or Jehovah'S Witness materials [] There are Spiritual issues to be addressed [employer] Interventions [x] Prayer [x] Active listening [x] Non-anxious presence [x] Spiritual/emotional support [] Crisis/trauma care [] Spiritual counseling [] Bereavement support [] Provided bereavement packet [] Provided Bible/devotional materials [] Provided toy/stuffed animal, coloring book to patient or family member [] Provided Communion [] Anointing/[place] [] Salvation [x] Completed spiritual assessment [] Other: Impact on Illness or Injury [] Angry [] Fearful [] Anxious [] Often cries [] Exhaustion [] Unable to work [] Unable to attend shinto [] Unable to walk/stand [] Unable to read [] Unable to drive [] Unable to eat/drink [] Unable to sleep [] Unable to be with family [] Patient intubated [] Other: Summary patient feeling stronger... doesn't require prayer... enterprise manager prayed outside room.. Time spent with patient 10 min
--- NOTE | 2020-11-17 11:33 | P.PN_ITS ---
Subjective Subjective: Interval history: Patient was examined after his procedure, no chest pain, he is waiting to hear back from Dr. Castro, no shortness of breath, no edema, currently getting fluid after contrast, is at bedside Vitals/I&O/Wt Last Vital Signs Temp 97.6 F 11/17/20 08:00 Pulse 103 H 11/17/20 10:30 Resp 24 H 11/17/20 10:30 BP 127/71 11/17/20 10:30 Pulse Ox 97 11/17/20 10:30 11/16/20 11/17/20 11/17/20 22:59 06:59 14:59 Intake Total 150 / 150 116.1 / 266.1 450 / 450 Output Total 710 / 1860 425 / 2285 410 / 410 Balance -560 / -1710 -308.9 / -2018.9 40 / 40 Weight last 48 hrs Weight 96.887 kg Weight 99.79 kg Physical Exam Const: COMMON NORMALS: no acute distress ORIENTATION/CONSCIOUSNESS: Yes awake, Yes oriented to person and Yes oriented to place Chest: COMMONS NORMALS: normal inspection of the chest Resp: COMMON NORMALS: normal respiratory effort, No retractions, No use of accessory muscles and clear to auscultation bilaterally AUSCULTATION: clear to auscultation bilaterally Cardio: COMMON NORMALS: regular rate, regular rhythm, S1 normal heart sound present and S2 normal heart sound present RATE: regular rate RHYTHM: regular rhythm HEART SOUNDS: S1 normal heart sound present and S2 normal heart sound present GI: COMMON NORMALS: Normal to inspection, nondistended, normoactive bowel sounds present, Soft to palpation and non-tender PALPATION: Yes Soft to palpation Extremity: COMMON NORMALS: no pedal edema Neuro: SENSORIUM/ORIENTATION: Yes oriented to person and Yes oriented to place Urinary Catheter Management^: Alejandre: Cath Placed During This Visit: yes Reason for Continuing Indwelling Catheter: Accurate Measurement of Urinary Output in Critically Ill Patients Urinary Catheter Date of Insertion: 11/16/20 Urinary Catheter Time of Insertion: 03:05 Data : 11/17/20 07:51 11/17/20 07:51 A&P Assessment and plan (1) Acute and chronic respiratory failure with hypoxia: Secondary to acute flash pulmonary edema Plan: -We will moved to CSU -Continue BiPAP as needed during the day, schedule during the night -Diuretic therapy as directed by cardiology -Fluid restrictions 1500 cc -Monitor respiratory status closely, monitor urine output, monitor creatinine, potassium -Patient is a limited code, does not want to be intubated Status: Acute (2) Non-ST elevation ME (NSTEMI): with chest pain and shortness of breath Currently symptom-free History of CABG, 5 stents Baseline troponin 377, 6-hour 2084, 2461 BNP 39862 EKG shows sinus tachycardia, left bundle branch block Etiology likely related to acute flash pulmonary edema, however given prior cardiac history, cannot rule out underlying cardiovascular etiology Plan: -Continue aspirin, statin, Coreg -Heparin drip on hold after procedure -Cardiac cath performed this morning was diagnostic -Continue Ranexa, Imdur -Awaiting cardiology's recommendations -Monitor for chest pain -We will moved to CSU -Receiving gentle hydration to prevent contrast-induced nephropathy -Cardiology on consult Plan for today, awaiting cardiology recommendation, continue gentle IV hydration to prevent contrast-induced nephropathy, hopefully will move to CSU Status: Acute (3) Pulmonary edema: Status: Acute Qualifiers: Chronicity: acute Qualified Code(s): J81.0 - Acute pulmonary edema (4) Congestive heart failure: Status: Acute Qualifiers: Heart failure chronicity: acute on chronic Heart failure type: unspecified Qualified Code(s): I50.9 - Heart failure, unspecified (5) HTN (hypertension): Status: Acute Qualifiers: Hypertension type: essential hypertension Qualified Code(s): I10 - Essential (primary) hypertension (6) Hyperlipidemia: Status: Acute Qualifiers: Hyperlipidemia type: unspecified Qualified Code(s): E78.5 - Hyperlipidemia, unspecified (7) CAD (coronary artery disease): Status: Acute Qualifiers: Coronary Disease-Associated Artery/Lesion type: bypass graft [place] vs. transplanted heart: [place] heart (8) CKD (chronic kidney disease): -Baseline creatinine unknown -Creatinine 2.6, -Likely component of cardiorenal syndrome -Renal ultrasound ordered, Alejandre in place -Receiving intermittent diuresis Status: Acute Qualifiers: Chronic kidney disease stage: stage 4 (severe) Qualified Code(s): N18.4 - Chronic kidney disease, stage 4 (severe) Additional A&P Information 75-year-old male with past medical history of coronary artery disease, CHF, advanced chronic kidney disease, diabetes who presents with chest tightness and shortness of breath. Acute onset. CODE STATUS. Limited code. He is okay with cardiovascular resuscitation but does not want to be intubated or mechanically ventilated. He is okay with BiPAP. Hypertension. Currently on Coreg Hyperkalemia. Resolved Reported daily alcohol use. We will start vitamins and CIWA protocol. No evidence of withdrawals at this time. Uncontrolled diabetes. Transition off insulin drip, to subcu insulin, A1c 6.8 DVT prophylaxis. SCDs, heparin drip on hold after cardiac cath The plan of care was discussed with the patient and his . They verbalized understanding and agreement. 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 transplanted heart: [place] heart CKD (chronic kidney disease) N18.4 Chronic kidney disease stage: stage 4 (severe)
--- NOTE | 2020-11-17 12:03 | PM.PN ---
Subjective Subjective: Interval history: Patient was seen postprocedure. Femoral sheath has been removed. Patient denies having any complaint and was lying comfortably in bed. Medications: Reviewed: Yes Vitals/I&O/Wt Last Vital Signs Temp 97.6 F 11/17/20 08:00 Pulse 103 H 11/17/20 10:30 Resp 24 H 11/17/20 10:30 BP 127/71 11/17/20 10:30 Pulse Ox 97 11/17/20 10:30 11/16/20 11/17/20 11/17/20 22:59 06:59 14:59 Intake Total 150 / 150 116.1 / 266.1 450 / 450 Output Total 710 / 1860 425 / 2285 410 / 410 Balance -560 / -1710 -308.9 / -2018.9 40 / 40 Weight last 48 hrs Weight 213 lb 9.6 oz Weight 220 lb Physical Exam Narrative: EXAM NARRATIVE: EXAM NARRATIVE: GENERAL: Obese man lying in bed in no respiratory distress HEENT: Pupils equal round reactive to light. No pallor or icterus. NECK: Short thick neck, No JVD appreciated. No carotid bruit. CARDIOVASCULAR SYSTEM: S1-S2 regular. Tachycardia present. no S3. No murmur rubs or gallops. RESPIRATORY SYSTEM: Air entry equal bilaterally. No wheezes. Bilateral occasonal crackles+ no use of accessory muscles. ABDOMEN: Soft, obese, nontender. EXTREMITIES: No cyanosis or clubbing. Trace ankle edema. Right femoral access site with no significant bruising or hematoma. PUBLIC ADDRESS TECHNICIAN: Patient is alert oriented ?3. No focal neurological deficits. PSYCH: Normal insight and judgment. Urinary Catheter Management^: Alejandre: Cath Placed During This Visit: yes Reason for Continuing Indwelling Catheter: Accurate Measurement of Urinary Output in Critically Ill Patients Urinary Catheter Date of Insertion: 11/16/20 Urinary Catheter Time of Insertion: 03:05 Data : 11/17/20 07:51 11/17/20 07:51 A&P Assessment and plan (1) Non-ST elevation NE (NSTEMI): Sudden onset dyspnea with some arm and hand pain (angina equivalent), significantly elevated troponin and echocardiogram with wall motion abnormality in LAD and circumflex artery territory. -There seems to be drop in LV function as well when compared to echocardiogram report dated May 2018. He underwent coronary angiogram with Dr. Castro this morning via right femoral access. Patent SEVILLA to LAD. RCA is patent with multiple stents. in-stent restenosis of 50% in distal segments. SVG grafts are occluded ostially and probably culprit. Distal left main occluded. Received about 130 cc of contrast. -Unfortunately his previous cath report all records from his synthetic cloth binding cutter were not obtained in spite of requesting it. Status: Acute (2) Congestive heart failure: Known congestive heart failure by history. Preserved LV function based on last echo report obtained. Lasix 40 mg IV x1. Plan to repeat another dose later this afternoon based on urine output. Status: Acute Qualifiers: Heart failure chronicity: acute on chronic Heart failure type: unspecified Qualified Code(s): I50.9 - Heart failure, unspecified (3) Pulmonary edema: Sudden onset pulmonary edema likely in setting of NSTEMI. -Plan for chest x-ray in morning Status: Acute Qualifiers: Chronicity: acute Qualified Code(s): J81.0 - Acute pulmonary edema (4) CAD (coronary artery disease): Status: Acute Qualifiers: Coronary Disease-Associated Artery/Lesion type: bypass graft [place] vs. transplanted heart: [place] heart (5) HTN (hypertension): Status: Acute Qualifiers: Hypertension type: essential hypertension Qualified Code(s): I10 - Essential (primary) hypertension (6) Hyperlipidemia: Status: Acute Qualifiers: Hyperlipidemia type: unspecified Qualified Code(s): E78.5 - Hyperlipidemia, unspecified (7) CKD (chronic kidney disease): Status: Acute Qualifiers: Chronic kidney disease stage: stage 4 (severe) Qualified Code(s): N18.4 - Chronic kidney disease, stage 4 (severe) Additional A&P Information CARLEE on CKD: Resolving BUN 47 and creatinine 2.3. Tachycardia: On Coreg 12.5 mg twice a day Obesity Anemia of chronic kidney disease Leukocytosis Thank you for allowing me to participate in patient's care. Please feel free to call with questions or concerns Attestations Medical Necessity Statement*: Patient requires hospitalization for NSTEMI. Coding Level of Care Code Acute Water Resources Engineer for g Fwd Diagnoses Non-ST elevation NE (NSTEMI) I21.4 Congestive heart failure I50.9 Heart failure chronicity: acute on chronic Heart failure type: unspecified Pulmonary edema J81.0 Chronicity: acute CAD (coronary artery disease) I25.10 Coronary Disease-Associated Artery/Lesion type: bypass graft [place] vs. transplanted heart: [place] heart HTN (hypertension) I10 Hypertension type: essential hypertension Hyperlipidemia E78.5 Hyperlipidemia type: unspecified CKD (chronic kidney disease) N18.4 Chronic kidney disease stage: stage 4 (severe)
[2020-11-17 12:15] LABS: Glucose Point of Care 310 mg/dL (70-110)
[2020-11-17 12:47] LABS: Troponin T (5th) Once 6478 ng/L (0-15)
[2020-11-17 16:53] LABS: Blood Urea Nitrogen 44 mg/dL (8-23); Calcium 8.3 mg/dL (8.5-10.5); Carbon Dioxide 23 mmol/L (22-29); Chloride 98 mmol/L (98-107); Glucose 297 mg/dL (65-115); Osmolality Calculated 296 mOsm/kg (285-295); Sodium 132 mmol/L (136-145)
[2020-11-17 17:34] LABS: Anion Gap 15.8 (5-19); Potassium 4.8 mmol/L (3.5-5.1)
[2020-11-17 18:02] LABS: Glucose Point of Care 315 mg/dL (70-110)
--- NOTE | 2020-11-17 18:50 | PC.NURSE ---
Shift Summary: Uneventful shift. Patient rested in bed until 1200 due to sheath removal. No complications noted from Sheath. Pt has been up to the chair multiple times today. Awaiting transfer to cardiac stepdown.
[2020-11-17 21:13] LABS: Glucose Point of Care 453 mg/dL (70-110)
[2020-11-18] VITALS (69 sets, daily range): BP systolic 117–138; BP diastolic 65–80; PULSE 82–109; RESP 16–52; TEMP 36.7–37.3; O2SAT 89–99; BMI 29.7
[2020-11-18] MEDS: atorvastatin 40 mg Tablet 80 MG PO (01:33)
[2020-11-18] MEDS: famotidine 20 mg/2 mL INJ IVP (01:33)
--- NOTE | 2020-11-18 02:33 | PC.NURSE ---
TRANSFER TO CSU Patient transferred to CSU by bed. All patient belongings were transferred and put at bedside with patient. Gave report to CSU nurse and put call light in reach for patient.
[2020-11-18 03:39] LABS: Basophils % 0.2 %; Eosinophils # 0.2 10^3/uL (0.0-0.8); Eosinophils % 2.8 %; Hematocrit 29.1 % (42.0-52.0); Hemoglobin 9.7 g/dL (11.7-16.6); Lymphocytes # 0.9 10^3/uL (0.8-4.8); Lymphocytes % 10.2 %; Mean Corpuscular HGB Conc 33.3 g/dL (30.0-36.0); Mean Corpuscular Hemoglobin 32.4 pg (28.0-34.0); Mean Corpuscular Volume 97.3 fL (80-94); Mean Platelet Volume 11.2 fL (7.4-10.4); Monocytes # 0.6 10^3/uL (0.2-0.9); Monocytes % 7.6 %; Neutrophils # 6.58 10^3/uL (1.8-7.7); Neutrophils % 78.8 %; Nucleated Red Blood Cells % 0 %; Platelet Count 153 10^3/cmm (130-400); Red Blood Count 2.99 10^6/uL (4.1-5.3); Red Cell Distribution Width 11.6 % (12.1-15.1); White Blood Count 8.3 10^3/uL (4.0-10.0)
--- NOTE | 2020-11-18 04:00 | XR_ITS ---
WS: [id number] Portable AP upright chest, 11/18/2020 Clinical Data: Pulmonary edema Comparison: Portable chest, 11/15/2020. Findings: The heart remains enlarged. The pulmonary vascularity and pulmonary opacity remain the same . No nodules or masses are seen. Midline sternotomy sutures are noted. There are monitor leads on the chest wall. There are surgical clips in the left axilla. XR/XR chest 1V portable [id number] Impression: No change in cardiomegaly and probable pulmonary edema compared to 3 days ago.
[2020-11-18 04:01] LABS: Anion Gap 13.5 (5-19); Blood Urea Nitrogen 56 mg/dL (8-23); Carbon Dioxide 26 mmol/L (22-29); Chloride 100 mmol/L (98-107); Glucose 112 mg/dL (65-115); Magnesium 1.8 mg/dL (1.7-2.3); Osmolality Calculated 296 mOsm/kg (285-295); Potassium 4.5 mmol/L (3.5-5.1); Sodium 135 mmol/L (136-145)
[2020-11-18 07:05] LABS: Glucose Point of Care 196 mg/dL (70-110)
[2020-11-18] MEDS: ranolazine (12HR) 500 mg Tablet 1000 MG PO ×2 (08:48→17:50)
[2020-11-18] MEDS: multivitamin therapeutic Tablet 1 TAB PO (08:49)
[2020-11-18] MEDS: aspirin 81 mg EC Tablet PO (08:49)
[2020-11-18] MEDS: isosorbide mononitrate ER 60 mg Tablet 120 MG PO (08:49)
[2020-11-18] MEDS: thiamine 100 mg Tablet PO (08:49)
[2020-11-18] MEDS: folic acid 1 mg Tablet PO (08:49)
[2020-11-18] MEDS: clopidogrel 75 mg Tablet PO (08:49)
[2020-11-18] MEDS: carvedilol 12.5 mg Tablet PO ×2 (08:50→21:05)
--- NOTE | 2020-11-18 10:24 | PM.PN ---
Subjective Subjective: Interval history: Patient denies any complaints. No chest pain or SOB overnight or this morning. He was moved out of unit. Medications: Reviewed: Yes Vitals/I&O/Wt Last Vital Signs Temp 98.5 F 11/18/20 00:00 Pulse 100 11/18/20 06:00 Resp 24 H 11/18/20 02:00 BP 128/79 11/18/20 02:00 Pulse Ox 89 L 11/18/20 02:00 11/17/20 11/18/20 11/18/20 22:59 06:59 14:59 Intake Total 400 / 850 100 / 950 Output Total 210 / 710 Balance 190 / 140 100 / 240 Weight last 48 hrs Weight 213 lb 9.6 oz Physical Exam Narrative: EXAM NARRATIVE: GENERAL: Obese man lying in bed in no respiratory distress HEENT: Pupils equal round reactive to light. No pallor or icterus. NECK: Short thick neck, No JVD appreciated. No carotid bruit. CARDIOVASCULAR SYSTEM: S1-S2 regular. Tachycardia present. no S3. No murmur rubs or gallops. RESPIRATORY SYSTEM: Air entry equal bilaterally. No wheezes. Bilateral intermittent crackles+ no use of accessory muscles. ABDOMEN: Soft, obese, nontender. EXTREMITIES: No cyanosis or clubbing. No significant edema. Right femoral access site with no significant bruising or hematoma. Good peripheral pulses. TECHNICAL COMMUNICATOR: Patient is alert oriented ?3. No focal neurological deficits. PSYCH: Normal insight and judgment. Urinary Catheter Management^: Alejandre: Cath Placed During This Visit: yes Reason for Continuing Indwelling Catheter: Acute Urinary Retention or Obstruction Urinary Catheter Date of Insertion: 11/16/20 Urinary Catheter Time of Insertion: 03:05 Data : 11/18/20 03:15 11/18/20 03:15 A&P Assessment and plan (1) Non-ST elevation [place] (NSTEMI): Sudden onset dyspnea with some arm and hand pain (angina equivalent) and sweating, significantly elevated troponin and echocardiogram with wall motion abnormality in LAD and circumflex artery territory. -There seems to be drop in LV function as well when compared to echocardiogram report dated May 2018. He underwent coronary angiogram with Dr. Castro yesterday morning via right femoral access. Patent SEVILLA to LAD. RCA is patent with multiple stents. in-stent restenosis of 50% in distal segments. SVG grafts are occluded ostially and probably culprit. Distal left main occluded. Received about 130 cc of contrast. -Unfortunately his previous cath report and records from his consolidation accountant were not obtained in spite of requesting it. -Troponin T >6000 yesterday post [facility] [place]. Plan for troponin T in am. Status: Acute (2) Congestive heart failure: Known congestive heart failure by history. Preserved LV function based on last echo report obtained. Lasix 40 mg IV x1 day before yesterday. UO 2285 day before and 710 ml yesterday. LOS -3L. Status: Acute Qualifiers: Heart failure chronicity: acute on chronic Heart failure type: unspecified Qualified Code(s): I50.9 - Heart failure, unspecified (3) Pulmonary edema: Sudden onset pulmonary edema likely in setting of NSTEMI. -Plan for chest x-ray in morning Status: Acute Qualifiers: Chronicity: acute Qualified Code(s): J81.0 - Acute pulmonary edema (4) CAD (coronary artery disease): h/o CABGx 3 and multiple PCI's Status: Acute Qualifiers: Coronary Disease-Associated Artery/Lesion type: bypass graft [place] vs. transplanted heart: [place] heart (5) HTN (hypertension): well controlled. Status: Acute Qualifiers: Hypertension type: essential hypertension Qualified Code(s): I10 - Essential (primary) hypertension (6) Hyperlipidemia: Status: Acute Qualifiers: Hyperlipidemia type: unspecified Qualified Code(s): E78.5 - Hyperlipidemia, unspecified (7) CKD (chronic kidney disease): Status: Acute Qualifiers: Chronic kidney disease stage: stage 4 (severe) Qualified Code(s): N18.4 - Chronic kidney disease, stage 4 (severe) Additional A&P Information CARLEE on CKD stage 4: concern for contrast induced nephropathy, UO 710 ml from 8 am to ~7pm. I do not have anything charted . I will start him on fluid at 75 cc/hr for next 6 hours and monitor him closely and consider lasix later. We will get nephrology on board to assist in management. Tachycardia: On Coreg 12.5 mg twice a day Obesity Anemia of chronic kidney disease Leukocytosis: resolved Thank you for allowing me to participate in patient's care. Please feel free to call with questions or concerns Attestations Medical Necessity Statement*: Patient requires hospitalization for NSTEMI and worsening renal function. Time Spent in Patient Care: Greater than 35 minutes (>than 50% of time spent in counselling and/or direct pt care on unit). Coding Level of Care Code Acute Crate Builder for [place] Fwd Diagnoses Non-ST elevation [place] (NSTEMI) I21.4 Congestive heart failure I50.9 Heart failure chronicity: acute on chronic Heart failure type: unspecified Pulmonary edema J81.0 Chronicity: acute CAD (coronary artery disease) I25.10 Coronary Disease-Associated Artery/Lesion type: bypass graft [place] vs. transplanted heart: [place] heart HTN (hypertension) I10 Hypertension type: essential hypertension Hyperlipidemia E78.5 Hyperlipidemia type: unspecified CKD (chronic kidney disease) N18.4 Chronic kidney disease stage: stage 4 (severe)
[2020-11-18] MEDS: sodium chloride 0.9% 1,000 ML 75 ML IV (10:36)
--- NOTE | 2020-11-18 11:46 | P.CONIM_ITS ---
Providers/Reason For Consult Consulting Physican/Specialty*: elizabeth zhao md / telenephrology Reason for Consult*: CARLEE on CKD Attending Physician: Moses Morgan MD Primary Care Provider: Claus Wells MD History of Present Illness History of Present Illness Neeraj Sheridan is a 75 year old male admitted on 11/15/20 w/ CP and SOB. EKG w/ Left BBB. Pt was diagnosed w/ a NSTEMI. Pt was treated w/ bipap and lasix. He underwent cardiac cath on 11/17/[address] Mendez- Dr. Castro this morning via right femoral access. Patent SEVILLA to LAD. RCA is patent with multiple stents. in-stent restenosis of 50% in distal segments. SVG grafts are occluded ostially and probably culprit. Distal left main occluded. Received about 130 cc of contrast. Pt has recieved lasix. His cr on admission 11/15 was 2.6, improved to 2.3 mg/dl. Today his cr is 3.1 mg/ dl, and renal called to consult. In January 2020- cr was 3.1 mg/ dl here. Per patient he has significant CKD- he does not know stage- he follows w/ Cande Renee DEPOSITION OPERATOR, [facility] and was told he has CKD due to DM. he does not know his stage CKD and baseline cr. Per chart- baseline cr closer to 2.1 mg/dl. Of note- pt has taken increased diuetics prior to admission for severe sob and edema. Pt found to have new acute drop in EF from over 50% to 35 % on echo. pt states he is feeling better. has dec uop. echo- Mildly increased left ventricular cavity size. Moderately decreased left ventricular systolic function. Left ventricular ejection fraction is estimated at 35 %. There is mild global hypokinesis with severe hypokinesis of basal to mid inferolateral, apical lateral, basal to apical anterior and apical church. Abnormal diastolic function. 3. Normal right ventricular size and systolic function. 4. Normal pulmonary artery pressure. Review of Systems General: Reports: 10 or more systems reviewed and unremarkable except in HPI and below Narrative: dec sob, feels better. HAs h/o DM retinopathy s/p laser surgery -denies DM neuropathy -CP improved dec uop -good appetite. denies sob. h/o melanoma removed- no new rashes good mood - Meds/Allergies Home Medications and Allergies Home Medications Medication Instructions Recorded Confirmed Last Taken Type aspirin 81 mg PO BEDTIME 11/16/20 11/16/20 Unknown History bumetanide 1 mg PO BID 11/16/20 11/16/20 Unknown History carvedilol 12.5 mg PO BID 11/16/20 11/16/20 Unknown History cholecalciferol (vitamin D3) 25 mcg PO DAILY 11/16/20 11/16/20 Unknown History [Vitamin D3] ezetimibe 10 mg PO DAILY 11/16/20 11/16/20 Unknown History glimepiride 2 mg PO BID 11/16/20 11/16/20 Unknown History insulin glargine [Lantus Solostar 50 unit SUBCUT DAILY 11/16/20 11/16/20 Unknown History U-100 Insulin] isosorbide mononitrate 120 mg PO DAILY 11/16/20 11/16/20 Unknown History metolazone 5 mg PO DAILY PRN 11/16/20 11/16/20 Unknown History ranolazine 1,000 mg PO BID 11/16/20 11/16/20 Unknown History Allergies Allergy/AdvReac Type Severity Reaction Status Date / Time ferrous sulfate Allergy Unknown Verified 11/16/20 08:09 lovastatin [From Mevacor] Allergy ALGY-Wheezi Verified 11/16/20 08:09 ng magnesium sulfate Allergy ADR-Gastrointestinal Verified 11/16/20 08:09 Upset niacin Allergy Unknown Verified 11/16/20 08:09 [From Niaspan Extended-Release] pravastatin [From Pravachol] Allergy ADR-Dizzine Verified 11/16/20 08:09 ss Pihwkjn-Mje-Wie Reductase Allergy ADR-Muscle Verified 11/16/20 08:09 Inhibitor Pain Current Medications Current Medications Generic Name Dose Route Start Last Admin Trade Name Freq PRN Reason Stop Dose Admin Aspirin 81 mg 11/18/20 09:00 11/18/20 08:49 Aspirin 81 Mg Ec Tablet PO 81 mg DAILY WOJCIECH Administration Atorvastatin Calcium 80 mg 11/16/20 01:45 11/18/20 01:33 Atorvastatin 40 Mg Tablet PO 80 mg Q24H WOJCIECH Administration Carvedilol 12.5 mg 11/16/20 21:00 11/18/20 08:50 Carvedilol 12.5 Mg Tablet PO 12.5 mg 0900,2100 WOJCIECH Administration Clopidogrel Bisulfate 75 mg 11/17/20 09:00 11/18/20 08:49 Clopidogrel 75 Mg Tablet PO 75 mg DAILY WOJCIECH Administration Famotidine 20 mg 11/16/20 01:41 11/18/20 01:33 Famotidine 20 Mg/2 Ml Inj IVP 20 mg Q24H WOJCIECH Administration Folic Acid 1 mg 11/17/20 09:00 11/18/20 08:49 Folic Acid 1 Mg Tablet PO 1 mg DAILY WOJCIECH Administration Hydralazine HCl 10 mg 11/16/20 01:54 11/16/20 03:50 Hydralazine 20 Mg/Ml Inj 1 Ml IVP 10 mg Q4H PRN Administration SBP above 155 Sodium Chloride 1,000 mls @ 75 mls/hr 11/18/20 09:45 11/18/20 10:36 Sodium Chloride 0.9% IV 75 mls/hr .[id number] WOJCIECH Administration Insulin Aspart 0 unit 11/16/20 12:00 11/18/20 08:50 Insulin Aspart 100 Unit/1 Ml SUBCUT 4 unit TIDWM WOJCIECH Administration Protocol Insulin Aspart 0 unit 11/16/20 21:00 11/17/20 21:02 Insulin Aspart 100 Unit/1 Ml SUBCUT 16 unit BEDTIME WOJCIECH Administration Protocol Isosorbide Mononitrate 120 mg 11/17/20 09:00 11/18/20 08:49 Isosorbide Mononitrate Er 60 Mg Tablet PO 120 mg DAILY WOJCIECH Administration Multivitamins Therapeutic 1 tab 11/17/20 09:00 11/18/20 08:49 Multivitamin Therapeutic Tablet PO 1 tab DAILY WOJCIECH Administration Ranolazine 1,000 mg 11/16/20 10:30 11/18/20 08:48 Ranolazine (12hr) 500 Mg Tablet PO 1,000 mg BID WOJCIECH Administration Thiamine Mononitrate 100 mg 11/17/20 09:00 11/18/20 08:49 Thiamine 100 Mg Tablet PO 100 mg DAILY WOJCIECH Administration PFSH Acute PFSH: Medical History CAD (coronary artery disease) CKD (chronic kidney disease) HTN (hypertension) Hyperlipidemia Vitals/I&O/Wt Last Vital Signs Temp 98.5 F 11/18/20 00:00 Pulse 100 11/18/20 06:00 Resp 24 H 11/18/20 02:00 BP 128/79 11/18/20 02:00 Pulse Ox 89 L 11/18/20 02:00 11/17/20 11/18/20 11/18/20 22:59 06:59 14:59 Intake Total 400 / 850 100 / 950 Output Total 210 / 710 Balance 190 / 140 100 / 240 Weight last 48 hrs Weight 96.887 kg Physical Exam Narrative: EXAM NARRATIVE: obese man sitting up NCo2- comfortable vs noted heent- nc/at, eomi, anicteric neck supple lungs crackles heart- reg, +MANOJ abd soft, nt, nd, +BS ext minimal edema neuro- a,a, o x 3 weak Distal pulses no rashes exam by RN- telehealth visit Urinary Catheter Management^: Lugo: Cath Placed During This Visit: yes Reason for Continuing Indwelling Catheter: Acute Urinary Retention or Obstruction Urinary Catheter Date of Insertion: 11/16/20 Urinary Catheter Time of Insertion: 03:05 A&P Additional A&P Information 75 yr old man DM, s/p CABG x 3, multiple stents, htn, hyperlipidemia, CKD stage 3-4- follows w/ Cande Renee NP in [facility]. H.O melanoma s/p resection. -Pt here w/ ACute on chronic systolic and diastolic dysfunction and NSTEMI. Pt is now s/p Cardiac cath on 11/17/20- has become oliguric over last 24 hrs and rise in cr w/ stage 3 CARLEE 1. CKD stage 3b- 4- baseline cr 1.8- 3.1 per chart- likely from htn and dm 2. CARLEE- likely from CRS and MIKE- odd that uop dropped so quickly after cardiac cath -Q cholesterol emboli -will check complements -pt has a lugo since 11/15/20- Q of obstruction or to monitor uop. renal us w/o hydronephrosis. normal size kidneys on renal us and normal echogenicity -will check urine studies -d/c ivf if okay w/ cardiology -avoid nephrotoxins -if sob then lasix -monitor for HD needs. high risk for HD need w/ DM, CKD, and MIKE 3. anemia- check iron studies 4. hypoantremia- check urine lytes -likely from CARLEE and CHF -check tsh 5. met alkalosis in setting of CARLEE on CKD- can be from diuretics. bicarb was 22 on admission 6. DM control per PMD 7. on d/c if GFR is greater than 25 ml/ min then pt would benefit from being on a SGLT-2 inhibitor- helps w/ CHF and delay progression of CKD 8. meds reviewed- d/c kayleigh boudreaux discussed w/ RN and Dr. 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
[2020-11-18 11:56] LABS: Glucose Point of Care 281 mg/dL (70-110)
--- NOTE | 2020-11-18 12:26 | P.PN_ITS ---
Subjective Subjective: Interval history: Patient was examined this morning, no complaints overnight, no fevers, no chills, no chest pain, no swelling, no shortness of breath Vitals/I&O/Wt Last Vital Signs Temp 98.5 F 11/18/20 00:00 Pulse 100 11/18/20 06:00 Resp 24 H 11/18/20 02:00 BP 128/79 11/18/20 02:00 Pulse Ox 89 L 11/18/20 02:00 11/17/20 11/18/20 11/18/20 22:59 06:59 14:59 Intake Total 400 / 850 100 / 950 Output Total 210 / 710 Balance 190 / 140 100 / 240 Weight last 48 hrs Weight 96.887 kg Physical Exam Const: COMMON NORMALS: no acute distress and patient oriented x3 HENMT: COMMON NORMALS: normocephalic HEAD & SCALP: normocephalic Resp: COMMON NORMALS: normal respiratory effort and clear to auscultation bilaterally AUSCULTATION: clear to auscultation bilaterally Cardio: COMMON NORMALS: regular rate, regular rhythm, S1 normal heart sound present and S2 normal heart sound present RATE: regular rate RHYTHM: regular rhythm HEART SOUNDS: S1 normal heart sound present and S2 normal heart sound present GI: COMMON NORMALS: Normal to inspection, nondistended, normoactive bowel sounds present and Soft to palpation PALPATION: Yes Soft to palpation Extremity: COMMON NORMALS: no pedal edema Neuro: COMMON NORMALS: patient oriented x3 Psych: COMMON NORMALS: mental status grossly normal Urinary Catheter Management^: Alejandre: Cath Placed During This Visit: yes Reason for Continuing Indwelling Catheter: Acute Urinary Retention or Obstruction Urinary Catheter Date of Insertion: 11/16/20 Urinary Catheter Time of Insertion: 03:05 Data : 11/18/20 03:15 11/18/20 03:15 A&P Assessment and plan (1) Acute and chronic respiratory failure with hypoxia: Secondary to acute flash pulmonary edema Currently doing well, on 2 L, no shortness of breath Plan: -Currently in CSU -Continue BiPAP as needed during the day, schedule during the night -Diuretics on hold -Fluid restrictions 1500 cc -Monitor respiratory status closely, monitor urine output, monitor creatinine, potassium -Patient is a limited code, does not want to be intubated Status: Acute (2) Non-ST elevation [place] (NSTEMI): with chest pain and shortness of breath Currently symptom-free History of CABG, 5 stents Baseline troponin 377, 6-hour 2084, 2461 BNP 26459 EKG shows sinus tachycardia, left bundle branch block Etiology likely related to acute flash pulmonary edema, however given prior cardiac history, cannot rule out underlying cardiovascular etiology Cardiac cath Patent SEVILLA to LAD. RCA is patent with multiple stents. in-stent restenosis of 50% in distal segments. SVG grafts are occluded ostially and probably culprit. Distal left main occluded. Received about 130 cc of contrast. Plan: -Continue aspirin, statin, Plavix, Coreg -Continue Ranexa, Imdur -Cardiology on consult Status: Acute (3) Pulmonary edema: Status: Acute Qualifiers: Chronicity: acute Qualified Code(s): J81.0 - Acute pulmonary edema (4) Congestive heart failure: Status: Acute Qualifiers: Heart failure chronicity: acute on chronic Heart failure type: unspecified Qualified Code(s): I50.9 - Heart failure, unspecified (5) HTN (hypertension): Status: Acute Qualifiers: Hypertension type: essential hypertension Qualified Code(s): I10 - Essential (primary) hypertension (6) Hyperlipidemia: Status: Acute Qualifiers: Hyperlipidemia type: unspecified Qualified Code(s): E78.5 - Hyperlipidemia, unspecified (7) CAD (coronary artery disease): Status: Acute Qualifiers: Coronary Disease-Associated Artery/Lesion type: bypass graft [place] vs. transplanted heart: [place] heart (8) CKD (chronic kidney disease): -Baseline creatinine unknown -Creatinine 3.1 Status: Acute Qualifiers: Chronic kidney disease stage: stage 4 (severe) Qualified Code(s): N18.4 - Chronic kidney disease, stage 4 (severe) (9) Contrast dye induced nephropathy: -Creatinine up to 3.1, after receiving contrast for coronary angiogram -Monitor urine output monitor creatinine, monitor electrolytes -Nephrology service has been consulted Status: Acute Additional A&P Information Plan for today monitor for contrast-induced nephropathy, monitor urine output monitor creatinine, monitor for shortness of breath, consult nephrology service 75-year-old male with past medical history of coronary artery disease, CHF, advanced chronic kidney disease, diabetes who presents with chest tightness and shortness of breath. Acute onset. CODE STATUS. Limited code. He is okay with cardiovascular resuscitation but does not want to be intubated or mechanically ventilated. He is okay with BiPAP. Hypertension. Currently on Coreg Hyperkalemia. Resolved Reported daily alcohol use. We will start vitamins and CIWA protocol. No evidence of withdrawals at this time. Uncontrolled diabetes. On subcu insulin DVT prophylaxis. Subcu heparin The plan of care was discussed with the patient and his . They verbalized understanding and agreement. Critical care time spent over 55 minutes Attestations Medical Necessity Statement*: Patient requires hospitalization for NSTEMI, pulmonary edema, now with contrast-induced nephropathy, Coding Level of Care Code Acute Chief Telephone Operator for [facility] Fwd Diagnoses Acute and chronic respiratory failure with hypoxia J96.21 Non-ST elevation [place] (NSTEMI) I21.4 Pulmonary edema J81.0 Chronicity: acute Congestive heart failure I50.9 Heart failure chronicity: acute on chronic Heart failure type: unspecified HTN (hypertension) I10 Hypertension type: essential hypertension Hyperlipidemia E78.5 Hyperlipidemia type: unspecified CAD (coronary artery disease) I25.10 Coronary Disease-Associated Artery/Lesion type: bypass graft [place] vs. transplanted heart: [place] heart CKD (chronic kidney disease) N18.4 Chronic kidney disease stage: stage 4 (severe) Contrast dye induced nephropathy N14.1; T50.8X5A
[2020-11-18 13:31] LABS: Alanine Aminotransferase 17 U/L (0-41); Albumin Level 3.3 g/dL (3.5-5.2); Alkaline Phosphatase 50 IU/L (40-130); Anion Gap 14.9 (5-19); Aspartate Amino Transferase 38 U/L (0-40); Blood Urea Nitrogen 54 mg/dL (8-23); Carbon Dioxide 23 mmol/L (22-29); Chloride 99 mmol/L (98-107); Complement C3 122 mg/dL (90-180); Creatine Phosphokinase 174 U/L (39-308); Glucose 262 mg/dL (65-115); Osmolality Calculated 298 mOsm/kg (285-295); Potassium 4.9 mmol/L (3.5-5.1); Sodium 132 mmol/L (136-145); Total Bilirubin 0.5 mg/dL (0.15-1.2); Total Protein 6.3 g/dL (6.6-8.7)
[2020-11-18 13:37] LABS: Hepatitis C Virus Antibody Non-Reactive (Nonreactive)
[2020-11-18] MEDS: heparin 5,000 unit/mL INJ 1 mL 5000 UNIT SUBCUT (14:02)
[2020-11-18 16:19] LABS: Glucose Point of Care 267 mg/dL (70-110)
[2020-11-18 18:42] LABS: Bilirubin Urine 1+ (Negative); Blood Urine 2+ (Negative); Glucose Urine UA 1+ (Normal); Ketones Urine Negative (Negative); Leukocyte Esterase Urine Trace (Negative); Nitrate Urine Negative (Negative); Protein Urine 1+ (Negative); Squamous Epithelial Cell Urine 0-4 /hpf (0-5); Urine Appearance Hazy (CLEAR); Urine Color Yellow (Yellow); Urobilinogen Urine Norm (Negative); pH Urine 5 (5-7)
[2020-11-18 18:43] LABS: Amorphous Sediment Urine 2+ /hpf; Bacteria Urine 1+ /hpf
[2020-11-18 18:45] LABS: Creatinine Urine, Random 167 mg/dL (39-259)
[2020-11-18 18:46] LABS: Potassium, Radom Urine 49 mmol/L; Urine Creatinine 170 mg/dL (39-259); Urine Random Chloride 21 mmol/L
[2020-11-18 18:48] LABS: Urine Protein Random 101 mg/dL; Urine Random Sodium 17 mmol/L
[2020-11-18 18:59] LABS: Microalbum Creatinine Ratio Ur 341 mg/dL (0-20); Microalbumin Random Urine 57 ug/dL (0-20)
[2020-11-18 20:13] LABS: Glucose Point of Care 169 mg/dL (70-110)
[2020-11-19] VITALS (27 sets, daily range): BP systolic 119–135; BP diastolic 65–83; PULSE 89–98; RESP 13–40; TEMP 36.6–36.8; O2SAT 90–97
--- NOTE | 2020-11-19 00:07 | PC.NURSE ---
O2 sat 89 to 88 at times but comes back to 90's fast, refused to wear NC stating I don't need that, I know it drops
[2020-11-19] MEDS: heparin 5,000 unit/mL INJ 1 mL 5000 UNIT SUBCUT ×2 (00:33→13:09)
[2020-11-19] MEDS: famotidine 20 mg/2 mL INJ IVP (00:43)
[2020-11-19] MEDS: atorvastatin 40 mg Tablet 80 MG PO (00:43)
[2020-11-19 03:54] LABS: Basophils % 0.3 %; Eosinophils # 0.1 10^3/uL (0.0-0.8); Eosinophils % 1.5 %; Hematocrit 27.2 % (42.0-52.0); Lymphocytes # 0.6 10^3/uL (0.8-4.8); Lymphocytes % 8.2 %; Mean Corpuscular HGB Conc 33.1 g/dL (30.0-36.0); Mean Corpuscular Hemoglobin 31.9 pg (28.0-34.0); Mean Corpuscular Volume 96.5 fL (80-94); Mean Platelet Volume 11.7 fL (7.4-10.4); Monocytes # 0.5 10^3/uL (0.2-0.9); Monocytes % 7.1 %; Neutrophils # 5.99 10^3/uL (1.8-7.7); Neutrophils % 82.4 %; Nucleated Red Blood Cells % 0 %; Platelet Count 137 10^3/cmm (130-400); Red Blood Count 2.82 10^6/uL (4.1-5.3); Red Cell Distribution Width 11.7 % (12.1-15.1); White Blood Count 7.3 10^3/uL (4.0-10.0)
[2020-11-19 04:24] LABS: Calcium 7.8 mg/dL (8.5-10.5)
[2020-11-19 04:25] LABS: Blood Urea Nitrogen 66 mg/dL (8-23); Calcium 7.9 mg/dL (8.5-10.5); Carbon Dioxide 20 mmol/L (22-29); Chloride 98 mmol/L (98-107); Glucose 186 mg/dL (65-115); Osmolality Calculated 300 mOsm/kg (285-295); Parathyroid Hormone 231.8 pg/mL (15-65); Sodium 133 mmol/L (136-145); Thyroid Stimulating Hormone 3.09 uIU/mL (0.27-4.20)
[2020-11-19 04:29] LABS: Estmated Average Glucose 146; Hemoglobin A1C 6.7 % (4.0-6.0)
[2020-11-19 04:37] LABS: Magnesium 1.8 mg/dL (1.7-2.3); Phosphorus 4.2 mg/dL (2.5-4.5)
[2020-11-19 05:55] LABS: Ferritin 319 ng/mL (30-400); Iron 30 ug/dL (59-158); Percent Saturation 11.8 % (20-50); Total Iron Binding Capacity 253 mcg/dl; Unsaturated Iron Binding 223 ug/dL (112-347)
[2020-11-19 06:12] LABS: 25 Hydroxy Vitamin D 23 ng/mL (30-100)
--- NOTE | 2020-11-19 06:20 | PC.NURSE ---
uneventful night, pulled R hand IV out, no complaints throughout shift, AO x4, supine 30 degrees call light within reach at this time
[2020-11-19 06:36] LABS: Glucose Point of Care 260 mg/dL (70-110)
[2020-11-19] MEDS: isosorbide mononitrate ER 60 mg Tablet 120 MG PO (08:28)
[2020-11-19] MEDS: ranolazine (12HR) 500 mg Tablet 1000 MG PO ×2 (08:29→18:25)
[2020-11-19] MEDS: clopidogrel 75 mg Tablet PO (08:29)
[2020-11-19] MEDS: thiamine 100 mg Tablet PO (08:29)
[2020-11-19] MEDS: aspirin 81 mg EC Tablet PO (08:29)
[2020-11-19] MEDS: multivitamin therapeutic Tablet 1 TAB PO (08:29)
[2020-11-19] MEDS: carvedilol 12.5 mg Tablet PO ×2 (08:29→20:11)
[2020-11-19] MEDS: folic acid 1 mg Tablet PO (08:29)
--- NOTE | 2020-11-19 09:50 | PC.SOCIAL ---
*IMM UPDATE* Gave patient IMM update. Provided him copy of page 2. Verbalized understanding. 11/19/20 @ 5358 Initialed, dated, timed and placed in chart.
[2020-11-19] MEDS: cefTRIAXone 1,000 MG in sodium chloride 0.9% (plus) 50 ML 100 MG IV (10:08)
--- NOTE | 2020-11-19 10:38 | PM.PN ---
Subjective Subjective: Interval history: Feels ok, no SOB, edema or other hypervolemic Sx. No uremic Sx. Minimal urine output. No chest pain, palpitations, dizziness etc Vitals/I&O/Wt Last Vital Signs Temp 97.8 F 11/19/20 07:16 Pulse 94 11/19/20 08:23 Resp 18 11/19/20 08:23 BP 124/82 11/19/20 07:16 Pulse Ox 94 11/19/20 08:23 11/18/20 11/19/20 11/19/20 22:59 06:59 14:59 Intake Total 240 / 240 Output Total 200 / 200 50 / 250 Balance -200 / -200 -50 / -250 240 / 240 Weight last 48 hrs Weight 97.069 kg Weight 96.887 kg Physical Exam Narrative: EXAM NARRATIVE: Constitutional: Awake, comfortable HEENT: Wet mucosa, no jvp, non icteric Lungs: Bilateral fine rales in the bases CVS: S1 S2, no murmurs Abdo: Soft, BS ok Ext 4: Minimal edema, peripheral perfusion with no cyanosis Neurological: Grossly non-focal Urinary Catheter Management^: Alejandre: Cath Placed During This Visit: yes Reason for Continuing Indwelling Catheter: Acute Urinary Retention or Obstruction Urinary Catheter Date of Insertion: 11/16/20 Urinary Catheter Time of Insertion: 03:05 Data : 11/19/20 03:25 11/19/20 03:25 A&P Additional A&P Information 1. Oliguric renal failure Appears to be from contrast, possible cholesterol emboli Currently oliguric but no acute indication for dialysis i.e. no uremic symptoms, chemistry looks well balanced and no hypervolemia. High risk of requiring dialysis over the next 24-48 hours especially given his history of pulmonary edema. I did certified genetic counselor him about this, however, at this time he is keen to be transferred to [facility]. Avoid usual nephrotoxic agents Dose medication for GFR less than 15. 2. Non-STEMI Management per cardiology, status post [facility] on 08/20 3. Chemistry by scott looks well balanced with minor aberration including low sodium, low bicarb, anion gap noted. Continue to monitor closely. At this time he is keen to be transferred to [facility] where his known physicians are. He mentioned that his outpatient primary care doctor Dr Wells should be the one to take care of him and nobody is telling this provider any information. I called and spoke to Dr. Wells's RN, as they are a PCP office to do not provide inpatient services they will be kind and speak to him to inform him that it will be a hospitalist at [facility] who will be looking after him. A call was also placed to Cande Renee his outpatient nephrology nurse practitioner who has an established relationship also. He further mentions that he is wants to be transferred facing forward sitting forwards and not in an ambulance. This will make life more challenging for us. D/w bedside RN and Dr Eddie Bernardo MD Nephrology [phone] Patient seen and examined via telemedicine, with the assistance of the bedside RN Attestations Medical Necessity Statement*: Eval for renal failure Coding Level of Care Code Acute Television Station Manager for Vijay Terrazas
[2020-11-19 11:39] LABS: Glucose Point of Care 249 mg/dL (70-110)
--- NOTE | 2020-11-19 12:26 | P.PN_ITS ---
Subjective Subjective: Interval history: Patient was examined this morning, no fevers, no chills, no nausea, no vomiting, no shortness of breath, currently on room air, his urine output has declined to 250, and his creatinine is up to 4.6, patient is upset, he tells me that he wants to be discharged and follow-up with his manufacturing team leader and team at in [facility]. I advised patient that I can offer him transfer to [facility], I cannot guarantee that he will have the same manufacturing team leader team, but if that is his wish I can transfer him as per his request. However patient tells me that he just wants to leave the hospital and follow-up as outpatient. I advised against this, due to risk of hyperkalemia, hyponatremia, electrolyte abnormalities, pulmonary edema associate with acute renal failure, he has a high risk of morbidity and mortality. I advised for him to stay in the hospital for us to monitor his electrolytes, monitor his telemetry, he might require dialysis the next few days, he voiced recently, all questions answered. I advised that if he wants to leave AGAINST MEDICAL ADVICE that is up to him however I would advise against it. Certainly I have encouraged him to stay here in the hospital, we have manufacturing team leader, marine fisheries technician helping us, we are only acting in his best interest to monitor his electrolytes, monitor his urine output, monitoring his respiratory status, considering his need for dialysis on a daily basis, due to contrast-induced nephropathy. However patient is quite upset, tells me he wants to leave and follow-up with his physicians in [facility], I apologized, it certainly a difficult situation given his contrast-induced nephropathy. I also had a discussion with patient's [id number], Nancy, I discussed the case in detail with her, she voiced understanding, all questions answered, she tells me that she would talk to Neeraj and her [id number] about the options. And will see if pursuing further interventions and care at [facility] as a hospital transfer is what patient and family wants. Nonetheless our manufacturing team leader Dr. Bernardo has reached out to nephrology team at [facility]. Vitals/I&O/Wt Last Vital Signs Temp 98.3 F 11/19/20 11:35 Pulse 92 11/19/20 11:35 Resp 20 H 11/19/20 11:35 BP 129/77 11/19/20 11:35 Pulse Ox 95 11/19/20 11:35 11/18/20 11/19/20 11/19/20 22:59 06:59 14:59 Intake Total 240 / 240 Output Total 200 / 200 50 / 250 Balance -200 / -200 -50 / -250 240 / 240 Weight last 48 hrs Weight 97.069 kg Weight 96.887 kg Physical Exam Const: COMMON NORMALS: no acute distress Resp: COMMON NORMALS: normal respiratory effort, No retractions, No use of accessory muscles and clear to auscultation bilaterally AUSCULTATION: clear to auscultation bilaterally Cardio: COMMON NORMALS: regular rate, regular rhythm, S1 normal heart sound present and S2 normal heart sound present RATE: regular rate RHYTHM: regular rhythm HEART SOUNDS: S1 normal heart sound present and S2 normal heart sound present GI: COMMON NORMALS: Normal to inspection, nondistended, normoactive bowel sounds present and Soft to palpation PALPATION: Yes Soft to palpation : COMMON NORMALS: Yes no CVA tenderness BLADDER/KIDNEY EXAM: Yes no CVA t enderness Back/Pelvis: COMMON NORMALS: no CVA tenderness Extremity: COMMON NORMALS: no pedal edema Urinary Catheter Management^: Alejandre: Cath Placed During This Visit: yes Reason for Continuing Indwelling Catheter: Acute Urinary Retention or Obstruction Urinary Catheter Date of Insertion: 11/16/20 Urinary Catheter Time of Insertion: 03:05 Data : 11/19/20 03:25 11/19/20 03:25 A&P Assessment and plan (1) Acute and chronic respiratory failure with hypoxia: Secondary to acute flash pulmonary edema Currently doing well, on room air, no shortness of breath Plan: -Currently in CSU -Continue BiPAP as needed during the day, schedule during the night -Diuretics on hold -Monitor respiratory status closely, monitor urine output, monitor creatinine, potassium -Patient is a limited code, does not want to be intubated Status: Acute (2) Non-ST elevation SC (NSTEMI): with chest pain and shortness of breath Currently symptom-free History of CABG, 5 stents Baseline troponin 377, 6-hour 2084, 2461 BNP 31600 EKG shows sinus tachycardia, left bundle branch block Etiology likely related to acute flash pulmonary edema, however given prior cardiac history, cannot rule out underlying cardiovascular etiology Cardiac cath Patent SEVILLA to LAD. RCA is patent with multiple stents. in-stent restenosis of 50% in distal segments. SVG grafts are occluded ostially and probably culprit. Distal left main occluded. Received about 130 cc of contrast. Plan: -Continue aspirin, statin, Plavix, Coreg -Continue Ranexa, Imdur -Cardiology on consult Status: Acute (3) Pulmonary edema: Status: Acute Qualifiers: Chronicity: acute Qualified Code(s): J81.0 - Acute pulmonary edema (4) Congestive heart failure: Status: Acute Qualifiers: Heart failure chronicity: acute on chronic Heart failure type: unspecified Qualified Code(s): I50.9 - Heart failure, unspecified (5) HTN (hypertension): Status: Acute Qualifiers: Hypertension type: essential hypertension Qualified Code(s): I10 - Essential (primary) hypertension (6) Hyperlipidemia: Status: Acute Qualifiers: Hyperlipidemia type: unspecified Qualified Code(s): E78.5 - Hyperlipidemia, unspecified (7) CAD (coronary artery disease): Status: Acute Qualifiers: Coronary Disease-Associated Artery/Lesion type: bypass graft [place] vs. transplanted heart: [place] heart (8) CKD (chronic kidney disease): -Baseline creatinine unknown Status: Acute Qualifiers: Chronic kidney disease stage: stage 4 (severe) Qualified Code(s): N18.4 - Chronic kidney disease, stage 4 (severe) (9) Contrast dye induced nephropathy: -Creatinine up to 4.6, urine output 250, after receiving contrast for coronary angiogram -Monitor urine output monitor creatinine, monitor electrolytes -Currently no urgent need for dialysis -However need to monitor for hyperkalemia, electrolyte abnormalities, arrhythmias, acute flash pulmonary edema -Nephrology service has been consulted -Will await family's decision either continuing medical care here at [facility], transfer to [facility] as per patient request, or to leave AGAINST MEDICAL ADVICE (hopefully we can come to an agreement and does not need to come to this) Status: Acute Additional A&P Information Plan for today monitor for contrast-induced nephropathy, monitor urine output monitor creatinine, monitor for shortness of breath, consult nephrology service 75-year-old male with past medical history of coronary artery disease, CHF, advanced chronic kidney disease, diabetes who presents with chest tightness and shortness of breath. Acute onset. CODE STATUS. Limited code. He is okay with cardiovascular resuscitation but does not want to be intubated or mechanically ventilated. He is okay with BiPAP. Hypertension. Hyperkalemia. Resolved Reported daily alcohol use. We will start vitamins and CIWA protocol. No evidence of withdrawals at this time. Uncontrolled diabetes. On subcu insulin DVT prophylaxis. Subcu heparin The plan of care was discussed with the patient and his . They verbalized understanding and agreement. Attestations Medical Necessity Statement*: Patient requires hospitalization, for contrast- induced nephropathy, acute renal failure, NSTEMI, pulmonary edema Coding Level of Care Code Acute Hose Inspector And Patcher for [facility] Diagnoses Acute and chronic respiratory failure with hypoxia J96.21 Non-ST elevation SC (NSTEMI) I21.4 Pulmonary edema J81.0 Chronicity: acute Congestive heart failure I50.9 Heart failure chronicity: acute on chronic Heart failure type: unspecified HTN (hypertension) I10 Hypertension type: essential hypertension Hyperlipidemia E78.5 Hyperlipidemia type: unspecified CAD (coronary artery disease) I25.10 Coronary Disease-Associated Artery/Lesion type: bypass graft [place] vs. transplanted heart: [place] heart CKD (chronic kidney disease) N18.4 Chronic kidney disease stage: stage 4 (severe) Contrast dye induced nephropathy N14.1; T50.8X5A
--- NOTE | 2020-11-19 14:28 | PM.PN ---
Subjective Subjective: Interval history: Very poor oral intake. Urine output last 24 hours about 250 mL. Creatinine 4.6 today. BUN 66. No chest pain or shortness of breath. He feels like he has for last 5 years and wants to go home. Medications: Reviewed: Yes Vitals/I&O/Wt Last Vital Signs Temp 98.3 F 11/19/20 11:35 Pulse 92 11/19/20 11:35 Resp 20 H 11/19/20 11:35 BP 129/77 11/19/20 11:35 Pulse Ox 95 11/19/20 11:35 11/18/20 11/19/20 11/19/20 22:59 06:59 14:59 Intake Total 240 / 240 Output Total 200 / 200 50 / 250 Balance -200 / -200 -50 / -250 240 / 240 Weight last 48 hrs Weight 214 lb Weight 213 lb 9.6 oz Physical Exam Narrative: EXAM NARRATIVE: GENERAL: Obese man lying in bed in no respiratory distress HEENT: Pupils equal round reactive to light. No pallor or icterus. NECK: Short thick neck, No JVD appreciated. No carotid bruit. CARDIOVASCULAR SYSTEM: S1-S2 regular. no S3. No murmur rubs or gallops. RESPIRATORY SYSTEM: Air entry equal bilaterally. No wheezes. Bilateral clear to auscultation. no use of accessory muscles. ABDOMEN: Soft, obese, nontender. EXTREMITIES: No cyanosis or clubbing. No significant edema. Right femoral access site with no significant bruising or hematoma. Good peripheral pulses. MULTI SKILLED OPERATOR: Patient is alert oriented ?3. No focal neurological deficits. PSYCH: Normal insight and judgment. Urinary Catheter Management^: Alejandre: Cath Placed During This Visit: yes Reason for Continuing Indwelling Catheter: Acute Urinary Retention or Obstruction Urinary Catheter Date of Insertion: 11/16/20 Urinary Catheter Time of Insertion: 03:05 Data : 11/19/20 03:25 11/19/20 03:25 A&P Assessment and plan (1) Renal failure (ARF), acute on chronic: -concern for MIKE -Decreased urine output to 50 cc in last 24 hours. Patient also admits to poor p.o. intake. -Will need close monitoring. Patient is not really happy about staying in the hospital. He discussed with nephrology and hospitalist service regarding the possibility of transfer. He found out his funeral limousine driver or his primary care physician do not provide inpatient care and even if he is transferred to [facility] in [place] he would be managed by a different team of doctors. He is agreeable to be cared for here however he is requesting to be discharged home. - I reiterated the need for closer monitoring given recent pulmonary edema, hyperkalemia and other electrolyte abnormalities, urine output as well as rhythm abnormalities. -Nephrology has been on board. Status: Acute Qualifiers: Acute renal failure type: unspecified Chronic kidney disease stage: stage 4 (severe) Qualified Code(s): N17.9 - Acute kidney failure, unspecified; N18.4 - Chronic kidney disease, stage 4 (severe) (2) Non-ST elevation MS (NSTEMI): Sudden onset dyspnea with some arm and hand pain (angina equivalent) and sweating, significantly elevated troponin and echocardiogram with wall motion abnormality in LAD and circumflex artery territory. -There seems to be drop in LV function as well when compared to echocardiogram report dated May 2018. He underwent coronary angiogram with Dr. Castro yesterday morning via right femoral access. Patent SEVILLA to LAD. RCA is patent with multiple stents. in-stent restenosis of 50% in distal segments. SVG grafts are occluded ostially and probably culprit. Distal left main occluded. Received about 130 cc of contrast. -Unfortunately his previous cath report and records from his neurological surgery teacher were not obtained in spite of requesting it. -Troponin T >600o post C. Plan for troponin T once renal function stabilizes. Status: Acute (3) Congestive heart failure: Known congestive heart failure by history. Preserved LV function based on last echo report obtained. Lasix 40 mg IV x1 day before yesterday. UO 2285 day before and 710 ml yesterday. LOS -3L. -Appears fairly euvolemic on exam Status: Acute Qualifiers: Heart failure chronicity: acute on chronic Heart failure type: unspecified Qualified Code(s): I50.9 - Heart failure, unspecified (4) Pulmonary edema: Sudden onset pulmonary edema likely in setting of NSTEMI. Status: Acute Qualifiers: Chronicity: acute Qualified Code(s): J81.0 - Acute pulmonary edema (5) CAD (coronary artery disease): h/o CABGx 3 and multiple PCI's Status: Acute Qualifiers: Coronary Disease-Associated Artery/Lesion type: bypass graft [place] vs. transplanted heart: [place] heart (6) HTN (hypertension): well controlled. Status: Acute Qualifiers: Hypertension type: essential hypertension Qualified Code(s): I10 - Essential (primary) hypertension (7) Hyperlipidemia: Status: Acute Qualifiers: Hyperlipidemia type: unspecified Qualified Code(s): E78.5 - Hyperlipidemia, unspecified (8) CKD (chronic kidney disease): Status: Acute Qualifiers: Chronic kidney disease stage: stage 4 (severe) Qualified Code(s): N18.4 - Chronic kidney disease, stage 4 (severe) Additional A&P Information Tachycardia: On Coreg 12.5 mg twice a day Obesity Anemia of chronic kidney disease Leukocytosis: resolved Thank you for allowing me to participate in patient's care. Please feel free to call with questions or concerns Attestations Medical Necessity Statement*: Needs hospital stay for acute renal failure Time Spent in Patient Care: Greater than 35 minutes Coding Level of Care Code Acute Technology Officer for [facility] Fwd Diagnoses Renal failure (ARF), acute on chronic N17.9; N18.4 Acute renal failure type: unspecified Chronic kidney disease stage: stage 4 (severe) Non-ST elevation [place] (NSTEMI) I21.4 Congestive heart failure I50.9 Heart failure chronicity: acute on chronic Heart failure type: unspecified Pulmonary edema J81.0 Chronicity: acute CAD (coronary artery disease) I25.10 Coronary Disease-Associated Artery/Lesion type: bypass graft [place] vs. transplanted heart: [place] heart HTN (hypertension) I10 Hypertension type: essential hypertension Hyperlipidemia E78.5 Hyperlipidemia type: unspecified CKD (chronic kidney disease) N18.4 Chronic kidney disease stage: stage 4 (severe)
--- NOTE | 2020-11-19 14:31 | ECG_ITS ---
[facility] Test Date: 2020-11-19 Pat Name: Neeraj Sheridan Department: Room: 112 Gender: Male Fpga Engineer: : 1945 Requested By: Danitza Collado Order Number: [id number] Reading MD: RICARDO LOAIZA Measurements Intervals [place] Rate: 91 P: -21 IA: 170 QRS: -25 QRSD: 150 T: 151 QT: 430 QTc: 530 Interpretive Statements SINUS RHYTHM INTRAVENTRICULAR CONDUCTION DELAY [130+ ms QRS DURATION] LATERAL MYOCARDIAL INFARCTION [40+ ms Q WAVE AND/OR ST/T ABNORMALITY IN I/aVL/V5/V6], OF INDETERMINATE AGE Compared to ECG 11/16/2020 16:24:11 Myocardial infarct finding now present T-wave abnormality no longer present Possible ischemia no longer present Electronically Signed On 11-19-2020 21:23:03 CDT by RICARDO LOAIZA [id number]
[2020-11-19 18:23] LABS: Glucose Point of Care 210 mg/dL (70-110)
[2020-11-19 20:02] LABS: Glucose Point of Care 271 mg/dL (70-110)
[2020-11-20] VITALS (15 sets, daily range): BP systolic 100–154; BP diastolic 60–97; PULSE 87–96; RESP 12–26; TEMP 36.4–36.6; O2SAT 92–99
--- NOTE | 2020-11-20 | SCC_ITS ---
Procedure Done: Placement of 16 Fr. 31 cm HemoSplit long-term dialysis catheter into the right internal jugular vein using intraoperative ultrasound guidance and intraoperative fluoroscopy. 2.4 seconds of fluoroscopic guidance, for a cumulative dose of 0.41 mGy, was provided to Dr. Demarco by the radiology department. C-arm images of the chest were saved for the patient's permanent record. MADELYN
[2020-11-20] MEDS: heparin 5,000 unit/mL INJ 1 mL 5000 UNIT SUBCUT ×2 (00:40→12:37)
[2020-11-20] MEDS: atorvastatin 40 mg Tablet 80 MG PO (00:40)
[2020-11-20 05:34] LABS: Basophils % 0.3 %; Eosinophils # 0.2 10^3/uL (0.0-0.8); Eosinophils % 2.7 %; Hematocrit 27.9 % (42.0-52.0); Hemoglobin 9.5 g/dL (11.7-16.6); Lymphocytes # 0.8 10^3/uL (0.8-4.8); Lymphocytes % 11.2 %; Mean Corpuscular HGB Conc 34.1 g/dL (30.0-36.0); Mean Corpuscular Hemoglobin 32.6 pg (28.0-34.0); Mean Corpuscular Volume 95.9 fL (80-94); Monocytes # 0.6 10^3/uL (0.2-0.9); Monocytes % 8.7 %; Neutrophils # 5.14 10^3/uL (1.8-7.7); Neutrophils % 76.7 %; Nucleated Red Blood Cells % 0 %; Platelet Count 163 10^3/cmm (130-400); Red Blood Count 2.91 10^6/uL (4.1-5.3); Red Cell Distribution Width 11.7 % (12.1-15.1); White Blood Count 6.7 10^3/uL (4.0-10.0)
[2020-11-20 06:01] LABS: Alanine Aminotransferase 15 U/L (0-41); Albumin Level 3.5 g/dL (3.5-5.2); Alkaline Phosphatase 68 IU/L (40-130); Anion Gap 21.5 (5-19); Aspartate Amino Transferase 25 U/L (0-40); Blood Urea Nitrogen 80 mg/dL (8-23); Calcium 8.2 mg/dL (8.5-10.5); Carbon Dioxide 20 mmol/L (22-29); Chloride 96 mmol/L (98-107); Creatine Phosphokinase 160 U/L (39-308); Globulin 3.4 g/dL (1.3-4.6); Glucose 164 mg/dL (65-115); Magnesium 2.1 mg/dL (1.7-2.3); Osmolality Calculated 304 mOsm/kg (285-295); Potassium 4.5 mmol/L (3.5-5.1); Sodium 133 mmol/L (136-145); Total Bilirubin 0.4 mg/dL (0.15-1.2); Total Protein 6.9 g/dL (6.6-8.7)
--- NOTE | 2020-11-20 06:10 | PC.NURSE ---
Critical Lab Creatinine of 6.[address] Plascencia of increased result. Patient has nephrology consult with possible plan for dialysis. No new orders received.
[2020-11-20 06:40] LABS: Glucose Point of Care 226 mg/dL (70-110)
--- NOTE | 2020-11-20 07:03 | P.PN_ITS ---
Subjective Subjective: Interval history: He feels generally okay. Breathing comfortably on room air while sitting up but is getting a little dyspneic when lying flat. No other overt anasarca/edema. Urine output minimal, only 50 mL every nursing shift. No other overt uremic symptoms. Medications: Reviewed: Yes Vitals/I&O/Wt Last Vital Signs Temp 97.6 F 11/20/20 02:30 Pulse 96 11/20/20 05:31 Resp 24 H 11/20/20 02:30 BP 123/68 11/20/20 02:30 Pulse Ox 94 11/20/20 02:30 11/19/20 11/20/20 11/20/20 22:59 06:59 14:59 Intake Total 240 / 530 Output Total 50 / 50 Balance 240 / 530 -50 / 480 Weight last 48 hrs Weight 99.564 kg Weight 97.069 kg Physical Exam Narrative: EXAM NARRATIVE: Constitutional: Awake, comfortable HEENT: Wet mucosa, no jvp, non icteric Lungs: Bilateral fine rales in the bases CVS: S1 S2, no murmurs Abdo: Soft, BS ok Ext 4: Minimal edema, peripheral perfusion with no cyanosis Neurological: Grossly non-focal Urinary Catheter Management^: Alejandre: Cath Placed During This Visit: yes Reason for Continuing Indwelling Catheter: Acute Urinary Retention or Obstruction Urinary Catheter Date of Insertion: 11/16/20 Urinary Catheter Time of Insertion: 03:05 Data : 11/20/20 04:22 11/20/20 04:22 A&P Additional A&P Information 1. Oliguric renal failure Appears to be from contrast, possible cholesterol emboli He is now agreeable to undergoing hemodialysis in our facility. There is not a hot indication to do dialysis today, however, given his presentation of flash pulmonary edema given the reduction in his ejection fraction and now anuric renal failure, he is a very high risk of developing respiratory failure over the next 24 hours. With this in mind, it would be safer for us to perform dialysis today. We will keep him n.p.o. Short run of dialysis today given initiation prescription i.e. 2 hours, low blo od flow, a ultrafiltration of just 2 L with a 3K bath. We will continue to monitor closely for recovery. We will evaluate for additional hemodialysis tomorrow morning Avoid usual nephrotoxic agents Dose medication for GFR less than 15. 2. Non-STEMI Management per cardiology, status post [facility] on 08/20 3. Chemistry by enlarge looks well balanced with minor aberration including low sodium, low bicarb, anion gap noted. Continue to monitor closely. I called and spoke to Dr. Wells's RN and Cande Pleitez his CYBER POLICY AND STRATEGY PLANNER in Nephrology. D/w bedside RN and Dr Eddie Bernardo MD Nephrology [phone] Patient seen and examined via telemedicine, with the assistance of the bedside RN Attestations Medical Necessity Statement*: Eval for renal failure Coding Level of Care Code Acute Air Grinder for Chg Fwjuliane
[2020-11-20] MEDS: aspirin 81 mg EC Tablet PO (08:28)
[2020-11-20] MEDS: famotidine 20 mg Tablet PO (08:28)
[2020-11-20] MEDS: thiamine 100 mg Tablet PO (08:28)
[2020-11-20] MEDS: clopidogrel 75 mg Tablet PO (08:28)
[2020-11-20] MEDS: carvedilol 12.5 mg Tablet PO ×2 (08:28→20:54)
[2020-11-20] MEDS: multivitamin therapeutic Tablet 1 TAB PO (08:28)
[2020-11-20] MEDS: folic acid 1 mg Tablet PO (08:28)
[2020-11-20] MEDS: isosorbide mononitrate ER 60 mg Tablet 120 MG PO (08:28)
[2020-11-20] MEDS: ranolazine (12HR) 500 mg Tablet 1000 MG PO ×2 (08:28→17:07)
[2020-11-20] MEDS: cefTRIAXone 1,000 MG in sodium chloride 0.9% (plus) 50 ML 100 MG IV (08:29)
[2020-11-20] MEDS: ondansetron 2 mg/ML SDV 2 mL 4 MG IVP (08:34)
--- NOTE | 2020-11-20 08:55 | PM.PN ---
Subjective Subjective: Interval history: Patient is doing well. He denies any complaints of chest pain, shortness of breath or palpitations. He underwent dialysis today. Vitals/I&O/Wt Last Vital Signs Temp 97.9 F 11/20/20 07:05 Pulse 89 11/20/20 07:25 Resp 18 11/20/20 07:25 BP 135/82 11/20/20 07:05 Pulse Ox 94 11/20/20 07:25 11/19/20 11/20/20 11/20/20 22:59 06:59 14:59 Intake Total 240 / 530 Output Total 50 / 50 Balance 240 / 530 -50 / 480 Weight last 48 hrs Weight 219 lb 8 oz Weight 214 lb Physical Exam Narrative: EXAM NARRATIVE: GENERAL: Obese man lying in bed in no respiratory distress HEENT: Pupils equal round reactive to light. No pallor or icterus. NECK: Short thick neck, No JVD appreciated. No carotid bruit. CARDIOVASCULAR SYSTEM: S1-S2 regular. no S3. No murmur rubs or gallops. RESPIRATORY SYSTEM: Air entry equal bilaterally. No wheezes. Bilateral clear to auscultation. no use of accessory muscles. ABDOMEN: Soft, obese, nontender. EXTREMITIES: No cyanosis or clubbing. No significant edema. Right femoral access site with no significant bruising or hematoma. Good peripheral pulses. COMMERCIAL APPRAISER: Patient is alert oriented ?3. No focal neurological deficits. PSYCH: Normal insight and judgment. Urinary Catheter Management^: Alejandre: Cath Placed During This Visit: yes Reason for Continuing Indwelling Catheter: Acute Urinary Retention or Obstruction Urinary Catheter Date of Insertion: 11/16/20 Urinary Catheter Time of Insertion: 03:05 Data : 11/21/20 04:46 11/21/20 04:46 A&P Assessment and plan (1) Renal failure (ARF), acute on chronic: -Likely from MIKE Patient underwent hemodialysis yesterday per nephrology recommendations. Will need to monitor for improvement in renal function. Status: Acute Qualifiers: Acute renal failure type: unspecified Chronic kidney disease stage: stage 4 (severe) Qualified Code(s): N17.9 - Acute kidney failure, unspecified; N18.4 - Chronic kidney disease, stage 4 (severe) (2) Non-ST elevation [place] (NSTEMI): Patient's SVG to OM was occluded. Likely culprit vessel for NSTEMI. His [place] vessels demonstrate that distal left main has chronic total occlusion. Brief attempt at wiring the [place] left circumflex was performed however as it was chronically occluded, we aborted the attempt. His [place] RCA is patent. SEVILLA to LAD is patent. Medical management for now Status: Acute (3) Congestive heart failure: Now on hemodialysis. LV systolic function has significantly dropped since his last echocardiogram from prior admission. Status: Acute Qualifiers: Heart failure chronicity: acute on chronic Heart failure type: unspecified Qualified Code(s): I50.9 - Heart failure, unspecified (4) Pulmonary edema: Sudden onset pulmonary edema likely in setting of NSTEMI. Status: Acute Qualifiers: Chronicity: acute Qualified Code(s): J81.0 - Acute pulmonary edema (5) CAD (coronary artery disease): h/o CABGx 3 and multiple PCI's Status: Acute Qualifiers: Coronary Disease-Associated Artery/Lesion type: bypass graft [place] vs. transplanted heart: [place] heart (6) HTN (hypertension): well controlled. Status: Acute Qualifiers: Hypertension type: essential hypertension Qualified Code(s): I10 - Essential (primary) hypertension (7) Hyperlipidemia: Status: Acute Qualifiers: Hyperlipidemia type: unspecified Qualified Code(s): E78.5 - Hyperlipidemia, unspecified (8) CKD (chronic kidney disease): Status: Acute Qualifiers: Chronic kidney disease stage: stage 4 (severe) Qualified Code(s): N18.4 - Chronic kidney disease, stage 4 (severe) Additional A&P Information Tachycardia: On Coreg 12.5 mg twice a day Obesity Anemia of chronic kidney disease Leukocytosis: resolved Thank you for allowing me to participate in patient's care. Please feel free to call with questions or concerns Attestations Medical Necessity Statement*: Care care expected to cross 2 midnights. 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 transplanted heart: [place] heart HTN (hypertension) I10 Hypertension type: essential hypertension Hyperlipidemia E78.5 Hyperlipidemia type: unspecified CKD (chronic kidney disease) N18.4 Chronic kidney disease stage: stage 4 (severe)
--- NOTE | 2020-11-20 09:07 | P.CONIM_ITS ---
Providers/Reason For Consult Consulting Physican/Specialty*: General Surgery Michael Demarco MD Reason for Consult*: Requesting urgent tunneled hemodialysis catheter placement. Attending Physician: Moses Morgan MD Primary Care Provider: Claus Wells MD History of Present Illness History of Present Illness Neeraj Sheridan is a 75 year old male who was admitted to the hospital several days ago for chest tightness and shortness of breath. He underwent angiography, and to my understanding no significant problems were found despite his having a history of significant coronary artery disease, status post CABG and stent placements. The patient then experienced contrast-induced nephropathy. He has reached a point where the independent trader has asked for a tunneled hemodialysis catheter placement. He would like this done today as he is afraid the patient may significantly decline within the next 24 hours. The patient is on subcutaneous heparin and daily Plavix. I tried to put his Plavix on hold this morning, but apparently he was given the medication 30 minutes early. The patient denies any history of neck surgery or upper chest/neck injury. He has never had a central line placed to his recollection. Review of Systems 2 General: Reports: 10 or more systems reviewed and unremarkable except in HPI and below Const: Denies: fever(s) GI: Denies: abdominal pain Endo: Reports: other (Oliguria) Meds/Allergies Home Medications and Allergies Home Medications Medication Instructions Recorded Confirmed Last Taken Type aspirin 81 mg PO BEDTIME 11/16/20 11/16/20 Unknown History bumetanide 1 mg PO BID 11/16/20 11/16/20 Unknown History carvedilol 12.5 mg PO BID 11/16/20 11/16/20 Unknown History cholecalciferol (vitamin D3) 25 mcg PO DAILY 11/16/20 11/16/20 Unknown History [Vitamin D3] ezetimibe 10 mg PO DAILY 11/16/20 11/16/20 Unknown History glimepiride 2 mg PO BID 11/16/20 11/16/20 Unknown History insulin glargine [Lantus Solostar 50 unit SUBCUT DAILY 11/16/20 11/16/20 Unknown History U-100 Insulin] isosorbide mononitrate 120 mg PO DAILY 11/16/20 11/16/20 Unknown History metolazone 5 mg PO DAILY PRN 11/16/20 11/16/20 Unknown History ranolazine 1,000 mg PO BID 11/16/20 11/16/20 Unknown History calcitriol See Rx Instructions .ROUTE .COMPLEX 11/19/20 11/19/20 Unknown History Allergies Allergy/AdvReac Type Severity Reaction Status Date / Time ferrous sulfate Allergy Unknown Verified 11/16/20 08:09 lovastatin [From Mevacor] Allergy ALGY-Wheezi Verified 11/16/20 08:09 ng magnesium sulfate Allergy ADR-Gastrointestinal Verified 11/16/20 08:09 Upset niacin Allergy Unknown Verified 11/16/20 08:09 [From Niaspan Extended-Release] pravastatin [From Pravachol] Allergy ADR-Dizzine Verified 11/16/20 08:09 ss Apuakxl-Qda-Pbp Reductase Allergy ADR-Muscle Verified 11/16/20 08:09 Inhibitor Pain Current Medications Current Medications Generic Name Dose Route Start Last Admin Trade Name Freq PRN Reason Stop Dose Admin Aspirin 81 mg 11/18/20 09:00 11/20/20 08:28 Aspirin 81 Mg Ec Tablet PO 81 mg DAILY WOJCIECH Administration Atorvastatin Calcium 80 mg 11/16/20 01:45 11/20/20 00:40 Atorvastatin 40 Mg Tablet PO 80 mg Q24H WOJCIECH Administration Carvedilol 12.5 mg 11/16/20 21:00 11/20/20 08:28 Carvedilol 12.5 Mg Tablet PO 12.5 mg 0900,2100 WOJCIECH Administration Clopidogrel Bisulfate 75 mg 11/17/20 09:00 11/20/20 08:28 Clopidogrel 75 Mg Tablet PO 75 mg DAILY WOJCIECH Administration Famotidine 20 mg 11/20/20 09:00 11/20/20 08:28 Famotidine 20 Mg Tablet PO 20 mg DAILY WOJCIECH Administration Folic Acid 1 mg 11/17/20 09:00 11/20/20 08:28 Folic Acid 1 Mg Tablet PO 1 mg DAILY WOJCIECH Administration Heparin Sodium (Beef Lung) 5,000 unit 11/18/20 12:30 11/20/20 00:40 Heparin 5,000 Unit/Ml Inj 1 Ml SUBCUT 5,000 unit Q12H WOJCIECH Administration Hydralazine HCl 10 mg 11/16/20 01:54 11/16/20 03:50 Hydralazine 20 Mg/Ml Inj 1 Ml IVP 10 mg Q4H PRN Administration SBP above 155 Ceftriaxone Sodium 1,000 mg/ 50 mls @ 100 mls/hr 11/19/20 09:00 11/20/20 08:29 Sodium Chloride IV 100 mls/hr Q24H WOJCIECH Administration Protocol Insulin Aspart 0 unit 11/16/20 12:00 11/20/20 08:30 Insulin Aspart 100 Unit/1 Ml SUBCUT 6 unit TIDWM WOJCIECH Administration Protocol Insulin Aspart 0 unit 11/16/20 21:00 11/19/20 20:11 Insulin Aspart 100 Unit/1 Ml SUBCUT 10 unit BEDTIME WOJCIECH Administration Protocol Isosorbide Mononitrate 120 mg 11/17/20 09:00 11/20/20 08:28 Isosorbide Mononitrate Er 60 Mg Tablet PO 120 mg DAILY WOJCIECH Administration Multivitamins Therapeutic 1 tab 11/17/20 09:00 11/20/20 08:28 Multivitamin Therapeutic Tablet PO 1 tab DAILY WOJCIECH Administration Ondansetron HCl 4 mg 11/16/20 01:41 11/20/20 08:34 Ondansetron 2 Mg/Ml Sdv 2 Ml IVP 4 mg Q6H PRN Administration NAUSEA AND VOMITING Ranolazine 1,000 mg 11/16/20 10:30 11/20/20 08:28 Ranolazine (12hr) 500 Mg Tablet PO 1,000 mg BID WOJCIECH Administration Thiamine Mononitrate 100 mg 11/17/20 09:00 11/20/20 08:28 Thiamine 100 Mg Tablet PO 100 mg DAILY WOJCIECH Administration PFSH Acute PFSH: Medical History (Updated 11/19/20 @ 14:44 by Danitza Collado MD) CAD (coronary artery disease) CKD (chronic kidney disease) HTN (hypertension) Hyperlipidemia Surgical History (Updated 11/20/20 @ 09:13 by Michael Demarco MD) History of tonsillectomy S/P CABG x 3 3 vessels 2001 Status post coronary artery stent placement Patient indicates he has 10 stents Social History Smoking and tobacco status: never smoked Vitals/I&O/Wt Last Vital Signs Temp 97.9 F 11/20/20 07:05 Pulse 89 11/20/20 07:25 Resp 18 11/20/20 07:25 BP 135/82 11/20/20 07:05 Pulse Ox 94 11/20/20 07:25 11/19/20 11/20/20 11/20/20 22:59 06:59 14:59 Intake Total 240 / 530 Output Total 50 / 50 Balance 240 / 480 -50 / 480 Weight last 48 hrs Weight 219 lb 8 oz Weight 214 lb Physical Exam Narrative: EXAM NARRATIVE: The patient was encountered in his hospital room. He does not appear to be in any distress. The pupils seem equal. No carotid bruits are heard. The lungs are clear. The heart is regular. The abdomen is moderately obese but is soft and nontender. The extremities reveal no significant edema. The patient does have some sequential compression devices on his lower extremities which were not removed. Neurologically the patient appears to be grossly intact. Urinary Catheter Management^: Alejandre: Cath Placed During This Visit: yes Reason for Continuing Indwelling Catheter: Acute Urinary Retention or Obstruction Urinary Catheter Date of Insertion: 11/16/20 Urinary Catheter Time of Insertion: 03:05 A&P Assessment and plan (1) Renal failure (ARF), acute on chronic: I have discussed hemodialysis catheter placements with the patient in some detail. Risks of bleeding (the patient has been receiving subcutaneous heparin and Plavix), infection, etc. were all gone over. The patient seems understand and is agreeable to proceeding with the procedure today. The patient has been n.p.o. this morning. I will make arrangements for a tunneled hemodialysis catheter placement with intraoperative fluoroscopy and ultrasound guidance this morning. Status: Acute Qualifiers: Acute renal failure type: unspecified Chronic kidney disease stage: stage 4 (severe) Qualified Code(s): N17.9 - Acute kidney failure, unspecified; N18.4 - Chronic kidney disease, stage 4 (severe) (2) Contrast dye induced nephropathy: Status: Acute Consult Attestations Medical Necessity Statement: See admitting service's notation. 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
--- NOTE | 2020-11-20 09:31 | ANES.PREANE2 ---
Pre-Anesthetic Assessment Pre-Anesthetic Assessment: Height/Weight: Height 1.8 m Weight 99.564 kg Temp Pulse Resp BP Pulse Ox 97.9 F 89 18 135/82 94 11/20/20 07:05 11/20/20 07:25 11/20/20 07:25 11/20/20 07:05 11/20/20 07:25 Preop Diagnosis: NSTEMI Proposed Procedure: Operation Date: 11/17/20 06:00 Proposed Procedures p Cardiac Catheterization(Not Applicable) - Jose Miguel Castro M.D Was Beta Kasie taken within 24 hours: Yes Was Clonidine taken within 24 hours: N/A Last Intake: 18:30 Social: Social History: Alcohol and No tobacco Comment: daily drinker Airway: Submandibular: WNL Cervical ROM: WNL MP: 3 Additional comments: atkinson missing teeth poor dentition Pulmonary: Pulmonary: SOB CV/HEM: CV/HEM: Angina (Stable), CAD, CHF, HTN and MO Comments: pulmonary edema : Comments: acute renal failure Hepatic: Hepatic: None reported GI: GI: GERD Metabolic: Metabolic: DM and Morbid obesity Musc/skel: Musc/skel: OA/DJD Neuropsych: Neuropsych: None reported Anesthetic Plan: ASA status: 4E Anesthesia: Anesthesia Evaluation Meds/Allergies Current Medications: Current Medications Generic Name Dose Route Start Last Admin Trade Name Alvaro PRN Reason Stop Dose Admin Aspirin 81 mg 11/18/20 09:00 11/20/20 08:28 Aspirin 81 Mg Ec Tablet PO 81 mg DAILY WOJCIECH Administration Atorvastatin Calci um 80 mg 11/16/20 01:45 11/20/20 00:40 Atorvastatin 40 Mg Tablet PO 80 mg Q24H WOJCIECH Administration Carvedilol 12.5 mg 11/16/20 21:00 11/20/20 08:28 Carvedilol 12.5 Mg Tablet PO 12.5 mg 0900,2100 WOJCIECH Administration Clopidogrel Bisulf ate 75 mg 11/17/20 09:00 11/20/20 08:28 Clopidogrel 75 M g Tablet PO 75 mg DAILY WOJCIECH Administration Famotidine 20 mg 11/20/20 09:00 11/20/20 08:28 Famotidine 20 Mg Tablet PO 20 mg DAILY WOJCIECH Administration Folic Acid 1 mg 11/17/20 09:00 11/20/20 08:28 Folic Acid 1 Mg Tablet PO 1 mg DAILY WOJCIECH Administration Heparin Sodium (Be ef Lung) 5,000 unit 11/18/20 12:30 11/20/20 00:40 Heparin 5,000 Un it/Ml Inj 1 Ml SUBCUT 5,000 unit Q12H WOJCIECH Administration Hydralazine HCl 10 mg 11/16/20 01:54 11/16/20 03:50 Hydralazine 20 M g/Ml Inj 1 Ml IVP 10 mg Q4H PRN Administration SBP above 155 Ceftriaxone Sodium 1,000 mg/ 50 mls @ 100 mls/ hr 11/19/20 09:00 11/20/20 08:29 Sodium Chloride IV 100 mls/hr Q24H WOJCIECH Administration Protocol Insulin Aspart 0 unit 11/16/20 12:00 11/20/20 08:30 Insulin Aspart 1 00 Unit/1 Ml SUBCUT 6 unit TIDWM WOJCIECH Administration Protocol Insulin Aspart 0 unit 11/16/20 21:00 11/19/20 20:11 Insulin Aspart 1 00 Unit/1 Ml SUBCUT 10 unit BEDTIME WOJCIECH Administration Protocol Isosorbide Mononit rate 120 mg 11/17/20 09:00 11/20/20 08:28 Isosorbide [place] itrate Er 60 Mg Ta blet PO 120 mg DAILY WOJCIECH Administration Multivitamins Ther apeutic 1 tab 11/17/20 09:00 11/20/20 08:28 Multivitamin The rapeutic Tablet PO 1 tab DAILY WOJCIECH Administration Ondansetron HCl 4 mg 11/16/20 01:41 11/20/20 08:34 Ondansetron 2 Mg /Ml Sdv 2 Ml IVP 4 mg Q6H PRN Administration NAUSEA AND VOMITI NG Ranolazine 1,000 mg 11/16/20 10:30 11/20/20 08:28 Ranolazine (12hr ) 500 Mg Tablet PO 1,000 mg BID WOJCIECH Administration Thiamine Mononitra te 100 mg 11/17/20 09:00 11/20/20 08:28 Thiamine 100 Mg Tablet PO 100 mg DAILY WOJCIECH Administration PFSH Anesthesia PFSH: Medical History (Updated 11/19/20 @ 14:44 by Danitza Collado MD) CAD (coronary artery disease) CKD (chronic kidney disease) HTN (hypertension) Hyperlipidemia Surgical History (Updated 11/20/20 @ 09:13 by Michael Demarco MD) History of tonsillectomy S/P CABG x 3 3 vessels 2001 Status post coronary artery stent placement Patient indicates he has 10 stents Social History Smoking and tobacco status: never smoked Data Anesthesia CBC & Chem 7: 11/20/20 04:22 11/20/20 04:22 Other Labs: Laboratory Results - last 48 hr 11/18/20 11/18/20 11/18/20 11:53 12:39 12:45 WBC RBC Hgb Hct MCV MCH MCHC RDW Plt Count MPV Neut % (Auto) Lymph % (Auto) [place] % (Auto) Eos % (Auto) Baso % (Auto) Neut # (Auto) Lymph # (Auto) [place] # (Auto) Eos # (Auto) Baso # (Auto) Nucleated RBC % (auto) Nucleated RBCs # Sodium 132 L Potassium 4.9 Chloride 99 Carbon Dioxide 23 Anion Gap 14.9 BUN 54 H Creatinine 3.2 H GFR Calculation Not Reportable Glucose 262 H POC Glucose 281 H Estimat Average Glucose Hemoglobin A1c Calculated Osmolality 298 H Calcium 8.0 L Phosphorus Magnesium Iron TIBC % Saturation Unsat Iron Binding Ferritin Total Bilirubin 0.5 AST 38 ALT 17 Alkaline Phosphatase 50 Creatine Kinase 174 Total Protein 6.3 L Albumin 3.3 L Globulin 3.0 25-OH Vitamin D Total TSH PTH Intact Calcium (PTH Intact) Urine Color Urine Appearance Urine pH Ur Specific [place] Urine Protein Urine Glucose (UA) Urine Ketones Urine Blood Urine Nitrate Urine Bilirubin Urine Urobilinogen Ur Leukocyte Esterase Urine RBC Urine WBC Ur Squamous Epith Cells Amorphous Sediment Urine Bacteria Ur Random Microalbumin U Random Total Protein Ur Random Sodium Ur Random Potassium Ur Random Chloride Urine Creatinine Microalb/Creat Ratio Complement C3 122 Complement C4 19 Hepatitis C Antibody Non-reactive 11/18/20 11/18/20 11/18/20 16:10 17:57 17:57 WBC RBC Hgb Hct MCV MCH MCHC RDW Plt Count MPV Neut % (Auto) Lymph % (Auto) [place] % (Auto) Eos % (Auto) Baso % (Auto) Neut # (Auto) Lymph # (Auto) [place] # (Auto) Eos # (Auto) Baso # (Auto) Nucleated RBC % (auto) Nucleated RBCs # Sodium Potassium Chloride Carbon Dioxide Anion Gap BUN Creatinine GFR Calculation Glucose POC Glucose 267 H Estimat Average Glucose Hemoglobin A1c Calculated Osmolality Calcium Phosphorus Magnesium Iron TIBC % Saturation Unsat Iron Binding Ferritin Total Bilirubin AST ALT Alkaline Phosphatase Creatine Kinase Total Protein Albumin Globulin 25-OH Vitamin D Total TSH PTH Intact Calcium (PTH Intact) Urine Color Yellow Urine Appearance Hazy A Urine pH 5 Ur Specific [place] 1.020 Urine Protein 1+ H Urine Glucose (UA) 1+ Urine Ketones Negative Urine Blood 2+ H Urine Nitrate Negative Urine Bilirubin 1+ H Urine Urobilinogen Norm Ur Leukocyte Esterase Trace H Urine RBC 5-10 H Urine WBC 10-15 H Ur Squamous Epith Cells 0-4 H Amorphous Sediment 2+ Urine Bacteria 1+ H Ur Random Microalbumin 57 H U Random Total Protein 101 Ur Random Sodium 17 Ur Random Potassium 49 Ur Random Chloride 21 Urine Creatinine 167 170 Microalb/Creat Ratio 341 H Complement C3 Complement C4 Hepatitis C Antibody 11/18/20 11/19/20 11/19/20 20:03 03:25 03:25 WBC RBC Hgb Hct MCV MCH MCHC RDW Plt Count MPV Neut % (Auto) Lymph % (Auto) [place] % (Auto) Eos % (Auto) Baso % (Auto) Neut # (Auto) Lymph # (Auto) [place] # (Auto) Eos # (Auto) Baso # (Auto) Nucleated RBC % (auto) Nucleated RBCs # Sodium 133 L Potassium 5.0 Chloride 98 Carbon Dioxide 20 L Anion Gap 20.0 H BUN 66 H Creatinine 4.6 H GFR Calculation Not Reportable Glucose 186 H POC Glucose 169 H Estimat Average Glucose 146 Hemoglobin A1c 6.7 H Calculated Osmolality 300 H Calcium 7.9 L Phosphorus Magnesium Iron TIBC % Saturation Unsat Iron Binding Ferritin Total Bilirubin AST ALT Alkaline Phosphatase Creatine Kinase Total Protein Albumin Globulin 25-OH Vitamin D Total TSH 3.09 PTH Intact Calcium (PTH Intact) Urine Color Urine Appearance Urine pH Ur Specific [place] Urine Protein Urine Glucose (UA) Urine Ketones Urine Blood Urine Nitrate Urine Bilirubin Urine Urobilinogen Ur Leukocyte Esterase Urine RBC Urine WBC Ur Squamous Epith Cells Amorphous Sediment Urine Bacteria Ur Random Microalbumin U Random Total Protein Ur Random Sodium Ur Random Potassium Ur Random Chloride Urine Creatinine Microalb/Creat Ratio Complement C3 Complement C4 Hepatitis C Antibody 11/19/20 11/19/20 11/19/20 03:25 03:25 03:25 WBC 7.3 RBC 2.82 L Hgb 9.0 L Hct 27.2 L MCV 96.5 H MCH 31.9 MCHC 33.1 RDW 11.7 L Plt Count 137 MPV 11.7 H Neut % (Auto) 82.4 Lymph % (Auto) 8.2 [place] % (Auto) 7.1 Eos % (Auto) 1.5 Baso % (Auto) 0.3 Neut # (Auto) 5.99 Lymph # (Auto) 0.6 L [place] # (Auto) 0.5 Eos # (Auto) 0.1 Baso # (Auto) 0.0 Nucleated RBC % (auto) 0 Nucleated RBCs # 0.0 Sodium Potassium Chloride Carbon Dioxide Anion Gap BUN Creatinine GFR Calculation Glucose POC Glucose Estimat Average Glucose Hemoglobin A1c Calculated Osmolality Calcium Phosphorus 4.2 Magnesium 1.8 Iron 30 L TIBC 253 % Saturation 11.8 L Unsat Iron Binding 223 Ferritin 319 Total Bilirubin AST ALT Alkaline Phosphatase Creatine Kinase Total Protein Albumin Globulin 25-OH Vitamin D Total 23 L TSH PTH Intact 231.8 H Calcium (PTH Intact) 7.8 L Urine Color Urine Appearance Urine pH Ur Specific [place] Urine Protein Urine Glucose (UA) Urine Ketones Urine Blood Urine Nitrate Urine Bilirubin Urine Urobilinogen Ur Leukocyte Esterase Urine RBC Urine WBC Ur Squamous Epith Cells Amorphous Sediment Urine Bacteria Ur Random Microalbumin U Random Total Protein Ur Random Sodium Ur Random Potassium Ur Random Chloride Urine Creatinine Microalb/Creat Ratio Complement C3 Complement C4 Hepatitis C Antibody 11/19/20 11/19/20 11/19/20 06:29 11:30 18:19 WBC RBC Hgb Hct MCV MCH MCHC RDW Plt Count MPV Neut % (Auto) Lymph % (Auto) [place] % (Auto) Eos % (Auto) Baso % (Auto) Neut # (Auto) Lymph # (Auto) [place] # (Auto) Eos # (Auto) Baso # (Auto) Nucleated RBC % (auto) Nucleated RBCs # Sodium Potassium Chloride Carbon Dioxide Anion Gap BUN Creatinine GFR Calculation Glucose POC Glucose 260 H 249 H 210 H Estimat Average Glucose Hemoglobin A1c Calculated Osmolality Calcium Phosphorus Magnesium Iron TIBC % Saturation Unsat Iron Binding Ferritin Total Bilirubin AST ALT Alkaline Phosphatase Creatine Kinase Total Protein Albumin Globulin 25-OH Vitamin D Total TSH PTH Intact Calcium (PTH Intact) Urine Color Urine Appearance Urine pH Ur Specific [place] Urine Protein Urine Glucose (UA) Urine Ketones Urine Blood Urine Nitrate Urine Bilirubin Urine Urobilinogen Ur Leukocyte Esterase Urine RBC Urine WBC Ur Squamous Epith Cells Amorphous Sediment Urine Bacteria Ur Random Microalbumin U Random Total Protein Ur Random Sodium Ur Random Potassium Ur Random Chloride Urine Creatinine Microalb/Creat Ratio Complement C3 Complement C4 Hepatitis C Antibody 11/19/20 11/20/20 11/20/20 19:54 04:22 04:22 WBC 6.7 RBC 2.91 L Hgb 9.5 L Hct 27.9 L MCV 95.9 H MCH 32.6 MCHC 34.1 RDW 11.7 L Plt Count 163 MPV 12.0 H Neut % (Auto) 76.7 Lymph % (Auto) 11.2 [place] % (Auto) 8.7 Eos % (Auto) 2.7 Baso % (Auto) 0.3 Neut # (Auto) 5.14 Lymph # (Auto) 0.8 [place] # (Auto) 0.6 Eos # (Auto) 0.2 Baso # (Auto) 0.0 Nucleated RBC % (auto) 0 Nucleated RBCs # 0.0 Sodium 133 L Potassium 4.5 Chloride 96 L Carbon Dioxide 20 L Anion Gap 21.5 H BUN 80 H Creatinine 6.2 H* GFR Calculation Not Reportable Glucose 164 H POC Glucose 271 H Estimat Average Glucose Hemoglobin A1c Calculated Osmolality 304 H Calcium 8.2 L Phosphorus 5.0 H Magnesium 2.1 Iron TIBC % Saturation Unsat Iron Binding Ferritin Total Bilirubin 0.4 AST 25 ALT 15 Alkaline Phosphatase 68 Creatine Kinase 160 Total Protein 6.9 Albumin 3.5 Globulin 3.4 25-OH Vitamin D Total TSH PTH Intact Calcium (PTH Intact) Urine Color Urine Appearance Urine pH Ur Specific [place] Urine Protein Urine Glucose (UA) Urine Ketones Urine Blood Urine Nitrate Urine Bilirubin Urine Urobilinogen Ur Leukocyte Esterase Urine RBC Urine WBC Ur Squamous Epith Cells Amorphous Sediment Urine Bacteria Ur Random Microalbumin U Random Total Protein Ur Random Sodium Ur Random Potassium Ur Random Chloride Urine Creatinine Microalb/Creat Ratio Complement C3 Complement C4 Hepatitis C Antibody 11/20/20 06:21 WBC RBC Hgb Hct MCV MCH MCHC RDW Plt Count MPV Neut % (Auto) Lymph % (Auto) [place] % (Auto) Eos % (Auto) Baso % (Auto) Neut # (Auto) Lymph # (Auto) [place] # (Auto) Eos # (Auto) Baso # (Auto) Nucleated RBC % (auto) Nucleated RBCs # Sodium Potassium Chloride Carbon Dioxide Anion Gap BUN Creatinine GFR Calculation Glucose POC Glucose 226 H Estimat Average Glucose Hemoglobin A1c Calculated Osmolality Calcium Phosphorus Magnesium Iron TIBC % Saturation Unsat Iron Binding Ferritin Total Bilirubin AST ALT Alkaline Phosphatase Creatine Kinase Total Protein Albumin Globulin 25-OH Vitamin D Total TSH PTH Intact Calcium (PTH Intact) Urine Color Urine Appearance Urine pH Ur Specific [place] Urine Protein Urine Glucose (UA) Urine Ketones Urine Blood Urine Nitrate Urine Bilirubin Urine Urobilinogen Ur Leukocyte Esterase Urine RBC Urine WBC Ur Squamous Epith Cells Amorphous Sediment Urine Bacteria Ur Random Microalbumin U Random Total Protein Ur Random Sodium Ur Random Potassium Ur Random Chloride Urine Creatinine Microalb/Creat Ratio Complement C3 Complement C4 Hepatitis C Antibody Cardiac Studies: Echocardiogram 11/16/20
--- NOTE | 2020-11-20 09:46 | SC_ITS ---
WS: [id number] Exam: C-arm FL for CVA [id number] Date/Time of Exam: 11/20/2020 10:00 AM Reason For Exam: dialysis catheter A single Limited C-arm image of the right chest is submitted for evaluation. A double lumen vascular catheter is noted most likely ending in the right atrium. Several sternal sut ures are noted. No other significant finding on this limited study.
[2020-11-20] MEDS: heparin, porcine 1,000 unit/mL INJ 10 mL 10000 UNIT HE (10:24)
--- NOTE | 2020-11-20 10:33 | P.OP_ITS ---
Operative Report Date of procedure: November 20, 2020 Pre-op Diagnosis: Acute on chronic renal failure. Post-op diagnosis: same Procedure Done: Placement of 16 Fr. 31 cm HemoSplit long-term dialysis catheter into the right internal jugular vein using intraoperative ultrasound guidance and intraoperative fluoroscopy. Pathology: none sent Surgeon: Michael Demarco Anesthesia: MAC Estimated blood loss (mL): 15 Complications: None. Condition: stable Disposition: PACU Procedure: The patient was brought to the operating room and was placed in a supine position on the operating room table. A monitored anesthetic was induced. The right side of the neck and chest were prepped and draped in a sterile fashion. Intraoperative ultrasound was used to find the right internal jugular vein as evidenced by its size and compressibility. 1% lidocaine was used for local anesthetic on the neck and the right internal jugular vein was accessed with a needle and syringe on the first pass as evidenced by the return of dark nonpulsatile blood. The guidewire was easily passed down the needle and the needle was removed. The C-arm was positioned and showed the guidewire extending down the vena cava. A 16 Romansh 31 cm HemoSplit long-term dialysis catheter was then placed on the right side of the chest and measured so that the subcutaneous cuff would be an appropriate location in the subcutaneous tunnel. A combination of 1% lidocaine and 0.5% bupivacaine with 1-200,000 parts epinephrine was used to anesthetize a subcutaneous tract from the right chest wall to the right side of the neck over the top of the clavicle. A small incision was made on the chest wall at the proposed exit point and a small incision was also made adjacent to the guidewire on the right side of the neck. The HemoSplit catheter was then tunneled from the small incision on the chest to the small incision on the right side of the neck using the passer provided in the kit. Small to medium sized dilators were then placed over the guidewire to dilate the skin opening and the subcutaneous tissue. The introducer and sheath were then passed over the guidewire easily into the right internal jugular vein. The guidewire and introducer were removed and the arms of the HemoSplit dialysis catheter were easily passed down the sheath which was then torn away. The C-arm was once again positioned and showed good placement of the dialysis catheter tip in the vena cava. Both ports were aspirated and flushed with hep flush solution. Both ports showed excellent flow and were then left filled with concentrated hep flush solution. The catheter was sewn in place at the skin on the chest with some sutures of 0 Prolene. The small incision on the right side of the neck was closed using some interrupted inverted sutures of 4-0 Vicryl. The incision on the neck was covered with some Dermabond. A sterile dressing was placed over the HemoSplit exit site on the chest. The patient was taken back to the recovery area postoperatively in stable condition. INTRAOPERATIVE FLUOROSCOPY FINDINGS: Intraoperative fluoroscopic images of a hemodialysis catheter placement were reviewed. An initial image reveals a guidewire entering the right internal jugular vein and extending down the vena cava. Incidental note is made of sternal wires. Subsequent images reveal a dialysis catheter on that side of the chest with its tubing tip in good location in the superior vena cava. No obvious pneumothorax is identified.
--- NOTE | 2020-11-20 10:48 | SUR.PHASEI ---
PT AWAKES TO VOICE ANSWERS QUESTIONS APPROPRIATELY, DENIES PAIN AND NAUSEA, VSS HOB AT 30 DEGREES RT CHEST DRESSING D/I MCCOLLUM TO DD WITH YELLOW URINE NOTED TO BAG, NOT EMPTIED IN OR OR PACU. PT WAS A MAC ANESTHESIA, PT SLEEPS IF NOT DISTURBED ON 3LNC SATS 99% RESP EVEN AND UNLABORED.
--- NOTE | 2020-11-20 11:04 | ANE.PACU2 ---
Inpatient post-anesthesia follow up: Airway intact: Yes Vital signs: Temperature 97.6 F Pulse Rate [Monito r] 122 Pulse Rate 90 Respiratory Rate 21 Blood Pressure [Ri ght Arm] 137/105 Blood Pressure 151/97 Pulse Oximetry 99 Oxygen Delivery Me thod Nasal Cannula Oxygen Flow Rate 3 Fraction of Inspir ed Oxygen 30 Hydration adequate: Yes Nausea and vomiting: No Pain level: 1 Mental status: Baseline
[2020-11-20 11:17] LABS: Glucose Point of Care 303 mg/dL (70-110)
--- NOTE | 2020-11-20 11:34 | ANES.PROC ---
Anesthesia Procedures Procedure/Date: 11/20/20 Epidural: Time Out Performed: Yes Consents Signed: Procedure Consent Consent: from patient, risks and benefits reviewed and patient agrees to proceed Lumbar Level: L2-L3 Epidural position: sitting Epidural procedure: sterile prep of area, 1% lidocaine to numb the area (5 ml), 18 g needle, neg for paresthesia, test dose given, 1.5% xylocaine 1:200k epi (3ml), 0.2% Ropivacaine bolus ml, placed PCEA, no systemic response, sterile dressing applied, L.U.D. no apparent complications and 0.2% Ropiavacaine @ mls/hr (13)
--- NOTE | 2020-11-20 12:17 | P.PN_ITS ---
Subjective Subjective: Interval history: Patient was examined this morning no shortness of breath, no chest pain, he is a bit nauseous, plans on dialysis catheter placement today with dialysis Vitals/I&O/Wt Last Vital Signs Temp 97.6 F 11/20/20 10:55 Pulse 90 11/20/20 10:55 Resp 21 H 11/20/20 10:55 BP 151/97 11/20/20 10:55 Pulse Ox 99 11/20/20 10:55 11/19/20 11/20/20 11/20/20 22:59 06:59 14:59 Intake Total 240 / 530 100 / 100 Output Total 50 / 50 5 / 5 Balance 240 / 530 -50 / 480 95 / 95 Weight last 48 hrs Weight 99.564 kg Weight 97.069 kg Physical Exam Const: COMMON NORMALS: no acute distress and patient oriented x3 Resp: COMMON NORMALS: normal respiratory effort, No retractions, No use of accessory muscles and clear to auscultation bilaterally AUSCULTATION: clear to auscultation bilaterally Cardio: COMMON NORMALS: regular rate, regular rhythm, S1 normal heart sound present and S2 normal heart sound present RATE: regular rate RHYTHM: regular rhythm HEART SOUNDS: S1 normal heart sound present and S2 normal heart sound present GI: COMMON NORMALS: Normal to inspection, nondistended, normoactive bowel sounds present and Soft to palpation PALPATION: Yes Soft to palpation Extremity: COMMON NORMALS: no pedal edema Neuro: COMMON NORMALS: patient oriented x3 Psych: COMMON NORMALS: mental status grossly normal Urinary Catheter Management^: Alejandre: Cath Placed During This Visit: yes Reason for Continuing Indwelling Catheter: Acute Urinary Retention or Ob struction Urinary Catheter Date of Insertion: 11/16/20 Urinary Catheter Time of Insertion: 03:05 Data : 11/20/20 04:22 11/20/20 04:22 A&P Assessment and plan (1) Acute and chronic respiratory failure with hypoxia: Secondary to acute flash pulmonary edema Currently doing well, on room air, no shortness of breath Plan: -Currently in CSU -Continue BiPAP as needed during the day, schedule during the night -Diuretics on hold -Will receive dialysis today -Monitor respiratory status closely, monitor urine output, monitor creatinine, potassium -Patient is a limited code, does not want to be intubated Status: Acute (2) Non-ST elevation RI (NSTEMI): with chest pain and shortness of breath Currently symptom-free History of CABG, 5 stents Baseline troponin 377, 6-hour 2084, 2461 BNP 47544 EKG shows sinus tachycardia, left bundle branch block Etiology likely related to acute flash pulmonary edema, however given prior cardiac history, cannot rule out underlying cardiovascular etiology Cardiac cath Patent SEVILLA to LAD. RCA is patent with multiple stents. in-stent restenosis of 50% in distal segments. SVG grafts are occluded ostially and probably culprit. Distal left main occluded. Received about 130 cc of contrast. Plan: -Continue aspirin, statin, Plavix, Coreg -Continue Ranexa, Imdur -Cardiology on consult Status: Acute (3) Pulmonary edema: Status: Acute Qualifiers: Chronicity: acute Qualified Code(s): J81.0 - Acute pulmonary edema (4) Congestive heart failure: Status: Acute Qualifiers: Heart failure chronicity: acute on chronic Heart failure type: unspecified Qualified Code(s): I50.9 - Heart failure, unspecified (5) HTN (hypertension): Status: Acute Qualifiers: Hypertension type: essential hypertension Qualified Code(s): I10 - Essential (primary) hypertension (6) Hyperlipidemia: Status: Acute Qualifiers: Hyperlipidemia type: unspecified Qualified Code(s): E78.5 - Hyperlipidemia, unspecified (7) CAD (coronary artery disease): Status: Acute Qualifiers: Coronary Disease-Associated Artery/Lesion type: bypass graft [place] vs. transplanted heart: burns paiute heart (8) CKD (chronic kidney disease): -Baseline creatinine unknown Status: Acute Qualifiers: Chronic kidney disease stage: stage 4 (severe) Qualified Code(s): N18.4 - Chronic kidney disease, stage 4 (severe) (9) Contrast dye induced nephropathy: -Creatinine up to 6.2, urine output 250, after receiving contrast for coronary angiogram -Monitor urine output monitor creatinine, monitor electrolytes -N.p.o., for tunneled dialysis plan for dialysis, will have dialysis after -However need to monitor for hyperkalemia, electrolyte abnormalities, arrhythmias, acute flash pulmonary edema -Nephrology service has been consulted -Will await family's decision either continuing medical care here at [facility], transfer to [facility] as per patient request, or to leave AGAINST MEDICAL ADVICE (hopefully we can come to an agreement and does not need to come to this) Status: Acute Additional A&P Information Plan for today dialysis catheter placement,dialysis, inpatient monitoring 75-year-old male with past medical history of coronary artery disease, CHF, advanced chronic kidney disease, diabetes who presents with chest tightness and shortness of breath. Acute onset. CODE STATUS. Limited code. He is okay with cardiovascular resuscitation but does not want to be intubated or mechanically ventilated. He is okay with BiPAP. Hypertension. Hyperkalemia. Resolved Reported daily alcohol use. We will start vitamins and CIWA protocol. No evidence of withdrawals at this time. Uncontrolled diabetes. On subcu insulin DVT prophylaxis. Subcu heparin The plan of care was discussed with the patient and his . They verbalized understanding and agreement. Attestations Medical Necessity Statement*: Patient requires hospitalization, for contrast- induced nephropathy, fluid overload, NSTEMI Coding Level of Care Code Acute Manager Risk for [facility] Mk Diagnoses Acute and chronic respiratory failure with hypoxia J96.21 Non-ST elevation RI (NSTEMI) I21.4 Pulmonary edema J81.0 Chronicity: acute Congestive heart failure I50.9 Heart failure chronicity: acute on chronic Heart failure type: unspecified HTN (hypertension) I10 Hypertension type: essential hypertension Hyperlipidemia E78.5 Hyperlipidemia type: unspecified CAD (coronary artery disease) I25.10 Coronary Disease-Associated Artery/Lesion type: bypass graft [place] vs. transplanted heart: burns paiute heart CKD (chronic kidney disease) N18.4 Chronic kidney disease stage: stage 4 (severe) Contrast dye induced nephropathy N14.1; T50.8X5A
[2020-11-20 16:08] LABS: Glucose Point of Care 206 mg/dL (70-110)
[2020-11-20 20:25] LABS: Hepatitis B Surface AB 3.5 (11.5-1000); Hepatitis B Surface Antigen Non-Reactive (Nonreactive)
[2020-11-20 20:54] LABS: Glucose Point of Care 186 mg/dL (70-110)
[2020-11-21] VITALS (11 sets, daily range): BP systolic 120–163; BP diastolic 72–90; PULSE 88–94; RESP 18–37; TEMP 36.4–36.8; O2SAT 93–95
[2020-11-21] MEDS: atorvastatin 40 mg Tablet 80 MG PO (00:55)
[2020-11-21] MEDS: heparin 5,000 unit/mL INJ 1 mL 5000 UNIT SUBCUT ×2 (00:55→11:43)
[2020-11-21 00:56] LABS: Glucose Point of Care 144 mg/dL (70-110)
[2020-11-21] MEDS: ondansetron 2 mg/ML SDV 2 mL 4 MG IVP (00:58)
[2020-11-21 05:32] LABS: Basophils % 0.3 %; Eosinophils # 0.1 10^3/uL (0.0-0.8); Eosinophils % 0.7 %; Hematocrit 28.3 % (42.0-52.0); Hemoglobin 9.4 g/dL (11.7-16.6); Lymphocytes # 0.5 10^3/uL (0.8-4.8); Lymphocytes % 6.1 %; Mean Corpuscular HGB Conc 33.2 g/dL (30.0-36.0); Mean Corpuscular Hemoglobin 32.3 pg (28.0-34.0); Mean Corpuscular Volume 97.3 fL (80-94); Mean Platelet Volume 11.6 fL (7.4-10.4); Monocytes # 0.6 10^3/uL (0.2-0.9); Monocytes % 7.9 %; Neutrophils # 6.34 10^3/uL (1.8-7.7); Neutrophils % 84.6 %; Nucleated Red Blood Cells % 0 %; Platelet Count 172 10^3/cmm (130-400); Red Blood Count 2.91 10^6/uL (4.1-5.3); Red Cell Distribution Width 11.8 % (12.1-15.1); White Blood Count 7.5 10^3/uL (4.0-10.0)
[2020-11-21 05:58] LABS: Alanine Aminotransferase 16 U/L (0-41); Albumin Level 3.7 g/dL (3.5-5.2); Alkaline Phosphatase 68 IU/L (40-130); Anion Gap 22.2 (5-19); Aspartate Amino Transferase 22 U/L (0-40); Blood Urea Nitrogen 65 mg/dL (8-23); Calcium 8.4 mg/dL (8.5-10.5); Carbon Dioxide 21 mmol/L (22-29); Chloride 97 mmol/L (98-107); Creatine Phosphokinase 121 U/L (39-308); Glucose 168 mg/dL (65-115); Magnesium 2.1 mg/dL (1.7-2.3); Osmolality Calculated 303 mOsm/kg (285-295); Phosphorus 5.7 mg/dL (2.5-4.5); Potassium 5.2 mmol/L (3.5-5.1); Sodium 135 mmol/L (136-145); Total Bilirubin 0.5 mg/dL (0.15-1.2); Total Protein 6.7 g/dL (6.6-8.7)
--- NOTE | 2020-11-21 06:08 | PC.NURSE ---
Critical Lab Creatinine of 5.[address] Plascencia present on the floor. Informed doctor of value to include patient had dialysis on 11/20/20. No new orders received.
[2020-11-21 06:41] LABS: Glucose Point of Care 227 mg/dL (70-110)
--- NOTE | 2020-11-21 07:10 | PM.PN ---
Subjective Subjective: Interval history: pt is weak, nausea. no sob or cp. is urinating. tolerated HD yesterday. no diarrhea Medications: Reviewed: Yes Medication Review Details: Current Medications Acetaminophen (Acetaminophen 325 Mg Tablet) 650 mg PO Q6H PRN PRN Reason: MILD PAIN Albuterol/Ipratropium (Ipratropium-Albuterol 3 Ml Neb) 3 ml INHALATION Q4H PRN PRN Reason: SHORTNESS OF BREATH Alprazolam (Alprazolam 0.25 Mg Tablet) 0.25 mg PO TID PRN PRN Reason: ANXIETY Aspirin (Aspirin 81 Mg Ec Tablet) 81 mg PO DAILY [facility] Last Admin: 11/20/20 08:28 Dose: 81 mg Documented by: Atorvastatin Calcium (Atorvastatin 40 Mg Tablet) 80 mg PO Q24H [facility] Last Admin: 11/21/20 00:55 Dose: 80 mg Documented by: Atropine Sulfate (Atropine 1 Mg/Ml Sdv 1 Ml) 0.5 mg IVP PRN PRN PRN Reason: Symptomatic bradycardia Carvedilol (Carvedilol 6.25 Mg Tablet) 6.25 mg PO 0900,2100 [facility] Clopidogrel Bisulfate (Clopidogrel 75 Mg Tablet) 75 mg PO DAILY [facility] Last Admin: 11/20/20 08:28 Dose: 75 mg Documented by: Dextrose (Dextrose 50% Syringe 50 Ml) 25 ml IVP ONCE PRN; Protocol PRN Reason: hypoglycemia protocol Dextrose (Dextrose 50% Syringe 50 Ml) 50 ml IVP PRN PRN; Protocol PRN Reason: hypoglycemia protocol Famotidine (Famotidine 20 Mg Tablet) 20 mg PO DAILY [facility] Last Admin: 11/20/20 08:28 Dose: 20 mg Documented by: Folic Acid (Folic Acid 1 Mg Tablet) 1 mg PO DAILY [facility] Last Admin: 11/20/20 08:28 Dose: 1 mg Documented by: Glucagon (Glucagon 1 Mg/Ml Inj 1 Ml) 1 mg IM ONCE PRN; Protocol PRN Reason: Adult Acute Hypoglycemia Prot. Heparin Sodium (Beef Lung) (Heparin 5,000 Unit/Ml Inj 1 Ml) 5,000 unit SUBCUT Q12H [facility] Last Admin: 11/21/20 00:55 Dose: 5,000 unit Documented by: Hydralazine HCl (Hydralazine 20 Mg/Ml Inj 1 Ml) 10 mg IVP Q4H PRN PRN Reason: SBP above 155 Last Admin: 11/16/20 03:50 Dose: 10 mg Documented by: Dextrose (D5w) 500 mls @ 100 mls/hr IV ONCE PRN; Protocol PRN Reason: Adult Acute Hypoglycemia Prot Ceftriaxone Sodium 1,000 mg/ (Sodium Chloride) 50 mls @ 100 mls/hr IV Q24H [facility]; Protocol Last Infusion: 11/20/20 08:59 Dose: Infused Documented by: Insulin Aspart (Insulin Aspart 100 Unit/1 Ml) 0 unit SUBCUT TIDWM [facility]; Protocol Last Admin: 11/20/20 17:07 Dose: 6 unit Documented by: Insulin Aspart (Insulin Aspart 100 Unit/1 Ml) 0 unit SUBCUT BEDTIME [facility]; Protocol Last Admin: 11/20/20 20:54 Dose: 6 unit Documented by: Isosorbide Mononitrate (Isosorbide Mononitrate Er 60 Mg Tablet) 120 mg PO DAILY [facility] Last Admin: 11/20/20 08:28 Dose: 120 mg Documented by: Lorazepam (Lorazepam 2 Mg/Ml Inj 1 Ml) 2 mg IM PROTOCOL PRN; Protocol PRN Reason: ALCOWD Lorazepam (Lorazepam 2 Mg Tablet) 2 mg PO PROTOCOL PRN; Protocol PRN Reason: WITHDRAWAL Magnesium Hydroxide (Magnesium Hydroxide 30 Ml Udc) 30 ml PO DAILY PRN PRN Reason: CONSTIPATION Metoclopramide HCl (Metoclopramide 5 Mg/Ml Sdv 2 Ml) 5 mg IVP Q6H PRN PRN Reason: NAUSEA AND VOMITING Morphine Sulfate (Morphine 4 Mg/Ml Sdv 1 Ml) 2 mg IVP Q2H PRN PRN Reason: SEVERE PAIN Multivitamins Therapeutic (Multivitamin Therapeutic Tablet) 1 tab PO DAILY [facility] Last Admin: 11/20/20 08:28 Dose: 1 tab Documented by: Naloxone HCl (Naloxone 0.4 Mg/Ml Sdv) 0.1 mg IVP Q2M PRN PRN Reason: RESPIRATORY RATE < 8/MIN Nitroglycerin (Nitroglycerin 0.4 Mg Sublingual Tablet) 0.4 mg SUBLINGUAL Q5M PRN PRN Reason: CHEST PAIN Ondansetron HCl (Ondansetron 2 Mg/Ml Sdv 2 Ml) 4 mg IVP Q6H PRN PRN Reason: NAUSEA AND VOMITING Last Admin: 11/21/20 00:58 Dose: 4 mg Documented by: Ranolazine (Ranolazine (12hr) 500 Mg Tablet) 1,000 mg PO BID [facility] Last Admin: 11/20/20 17:07 Dose: 1,000 mg Documented by: Temazepam (Temazepam 15 Mg Capsule) 15 mg PO BEDTIME PRN PRN Reason: INSOMNIA Thiamine Mononitrate (Thiamine 100 Mg Tablet) 100 mg PO DAILY [facility] Last Admin: 11/20/20 08:28 Dose: 100 mg Documented by: Vitals/I&O/Wt Last Vital Signs Temp 98.1 F 11/21/20 03:58 Pulse 89 11/21/20 05:13 Resp 22 H 11/21/20 03:58 BP 120/72 11/21/20 03:58 Pulse Ox 94 11/21/20 03:58 11/20/20 11/21/20 11/21/20 22:59 06:59 14:59 Intake Total 240 / 340 0 / 340 Output Total 150 / 155 75 / 230 Balance 90 / 185 -75 / 110 Weight last 48 hrs Weight 96.524 kg Weight 99.564 kg Physical Exam Narrative: EXAM NARRATIVE: obese man sitting up NCo2- comfortable vs noted heent- nc/at, eomi, anicteric neck supple lungs crackles b/l Rt ACW dialysis catheter heart- reg, +MANOJ abd soft, nt, nd, +BS ext 1+ b/l edema neuro- a,a, o x 2 weak Distal pulses no rashes exam by RN- telehealth visit Urinary Catheter Management^: Alejandre: Cath Placed During This Visit: yes Reason for Continuing Indwelling Catheter: Accurate Measurement of Urinary Output in Critically Ill Patients Urinary Catheter Date of Insertion: 11/16/20 Urinary Catheter Time of Insertion: 03:05 Data : 11/21/20 04:46 11/21/20 04:46 A&P Additional A&P Information 1. Oliguric renal failure -ATN, Q Cholesterol Emboli, MIKE -s/p first HD yesterday -dose lasix now. repeat chemistries at noon- based on uop and repeat chem 7- determine HD needs Avoid usual nephrotoxic agents Dose medication for GFR less than 15. 1b. CKD stage 3b- 4 from DM and HTN 2. hyponatremia- monitor w/ HD 3.Non-STEMI Management per cardiology, status post [facility] on 08/20 3b. CHF- attempt lasix- if fails then HD 4. anemia 5. bone- mineral- metabolism of ckd - phos 5.7- binders -replace vit d and may need calcitriol Dr. Bernardo called and spoke to Dr. Wells's RN and Cande Pleitez his CUPBOARD BUILDER in Nephrology. D/w bedside RN Patient seen and examined via telemedicine, with the assistance of the bedside RN Attestations Medical Necessity Statement*: joana after AMI and cath, hyperkalemia Time Spent in Patient Care: 16 - 35 minutes Coding Level of Care Code Acute Learning And Development Associate for [facility] [employer]
[2020-11-21] MEDS: FUROsemide 10 mg/mL SDV 10mL 60 MG IVP (07:39)
--- NOTE | 2020-11-21 08:44 | PM.PN ---
Subjective Subjective: Interval history: The patient says the dialysis catheter worked well yesterday. He has no pain because I'm tough as nails. Vitals/I&O/Wt Last Vital Signs Temp 97.6 F 11/21/20 07:23 Pulse 90 11/21/20 07:40 Resp 18 11/21/20 07:40 BP 151/80 11/21/20 07:23 Pulse Ox 95 11/21/20 07:40 11/20/20 11/21/20 11/21/20 22:59 06:59 14:59 Intake Total 240 / 340 0 / 340 Output Total 150 / 230 75 / 230 Balance 90 / 110 -75 / 110 Weight last 48 hrs Weight 212 lb 12.8 oz Weight 219 lb 8 oz Physical Exam Narrative: EXAM NARRATIVE: Patient has some mild bruising over the surgical site but otherwise everything looks great. Urinary Catheter Management^: Alejandre: Cath Placed During This Visit: yes Reason for Continuing Indwelling Catheter: Accurate Measurement of Urinary Output in Critically Ill Patients Urinary Catheter Date of Insertion: 11/16/20 Urinary Catheter Time of Insertion: 03:05 Data : 11/21/20 04:46 11/21/20 04:46 A&P Assessment and plan (1) Renal failure (ARF), acute on chronic: Status post tunneled hemodialysis catheter placement on 11/20/2020. Everything appears to be working well. I will not continue to see the patient daily. Please call if I can be of further help. Status: Acute Qualifiers: Acute renal failure type: unspecified Chronic kidney disease stage: stage 4 (severe) Qualified Code(s): N17.9 - Acute kidney failure, unspecified; N18.4 - Chronic kidney disease, stage 4 (severe) (2) Contrast dye induced nephropathy: Status: Acute Attestations Medical Necessity Statement*: See admitting service's notation. 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
--- NOTE | 2020-11-21 09:25 | P.PN_ITS ---
Subjective Subjective: Interval history: Patient is doing well. He denies any complaints of chest pain, shortness of breath or palpitations. He underwent hemodialysis yesterday. Vitals/I&O/Wt Last Vital Signs Temp 97.6 F 11/21/20 07:23 Pulse 90 11/21/20 07:40 Resp 18 11/21/20 07:40 BP 151/80 11/21/20 07:23 Pulse Ox 95 11/21/20 07:40 11/20/20 11/21/20 11/21/20 22:59 06:59 14:59 Intake Total 240 / 340 0 / 340 Output Total 150 / 155 75 / 230 Balance 90 / 185 -75 / 110 Weight last 48 hrs Weight 212 lb 12.8 oz Weight 219 lb 8 oz Physical Exam Narrative: EXAM NARRATIVE: GENERAL: Obese man lying in bed in no respiratory distress HEENT: Pupils equal round reactive to light. No pallor or icterus. NECK: Short thick neck, No JVD appreciated. No carotid bruit. CARDIOVASCULAR SYSTEM: S1-S2 regular. no S3. No murmur rubs or gallops. RESPIRATORY SYSTEM: Air entry equal bilaterally. No wheezes. Bilateral clear to auscultation. no use of accessory muscles. ABDOMEN: Soft, obese, nontender. EXTREMITIES: No cyanosis or clubbing. No significant edema. Right femoral access site with no significant bruising or hematoma. Good peripheral pulses. INFORMATION OPERATOR: Patient is alert oriented ?3. No focal neurological deficits. PSYCH: Normal insight and judgment. Urinary Catheter Management^: Alejandre: Cath Placed During This Visit: yes Reason for Continuing Indwelling Catheter: Accurate Measurement of Urinary Output in Critically Ill Patients Urinary Catheter Date of Insertion: 11/16/20 Urinary Catheter Time of Insertion: 03:05 Data : 11/21/20 04:46 11/21/20 04:46 A&P Assessment and plan (1) Renal failure (ARF), acute on chronic: -Likely from MIKE Patient had hemodialysis done yesterday per nephrology recommendations. Creatinine is slightly improved today however this could be related to dialysis. We will need to assess if urine output increases. Status: Acute Qualifiers: Acute renal failure type: unspecified Chronic kidney disease stage: stage 4 (severe) Qualified Code(s): N17.9 - Acute kidney failure, unspecified; N18.4 - Chronic kidney disease, stage 4 (severe) (2) Non-ST elevation [place] (NSTEMI): Patient's SVG to OM was occluded. Likely culprit vessel for NSTEMI. His [place] vessels demonstrate that distal left main has chronic total occlusion. Brief attempt at wiring the [place] left circumflex was performed however as it was chronically occluded, we aborted the attempt. His [place] RCA is patent. SEVILLA to LAD is patent. Medical management for now Status: Acute (3) Congestive heart failure: Now on hemodialysis. LV systolic function has significantly dropped since his last echocardiogram from prior admission. Status: Acute Qualifiers: Heart failure chronicity: acute on chronic Heart failure type: unspecified Qualified Code(s): I50.9 - Heart failure, unspecified (4) Pulmonary edema: Sudden onset pulmonary edema likely in setting of NSTEMI. Status: Acute Qualifiers: Chronicity: acute Qualified Code(s): J81.0 - Acute pulmonary edema (5) CAD (coronary artery disease): h/o CABGx 3 and multiple PCI's Status: Acute Qualifiers: Coronary Disease-Associated Artery/Lesion type: bypass graft [place] vs. transplanted heart: [place] heart (6) HTN (hypertension): well controlled. Status: Acute Qualifiers: Hypertension type: essential hypertension Qualified Code(s): I10 - Essential (primary) hypertension (7) Hyperlipidemia: Status: Acute Qualifiers: Hyperlipidemia type: unspecified Qualified Code(s): E78.5 - Hyperlipid [place], unspecified (8) CKD (chronic kidney disease): Status: Acute Qualifiers: Chronic kidney disease stage: stage 4 (severe) Qualified Code(s): N18.4 - Chronic kidney disease, stage 4 (severe) Additional A&P Information Tachycardia: On Coreg 12.5 mg twice a day Obesity Anemia of chronic kidney disease Leukocytosis: resolved Thank you for allowing me to participate in patient's care. Please feel free to call with questions or concerns Attestations 2 Medical Necessity Statement*: Care expected to cross 2 midnights. Coding Level of Care Code Acute Compliance Monitor for Vijay Terrazas Diagnoses Renal failure (ARF), acute on chronic N17.9; N18.4 Acute renal failure type: unspecified Chronic kidney disease stage: stage 4 (severe) Non-ST elevation [place] (NSTEMI) I21.4 Congestive heart failure I50.9 Heart failure chronicity: acute on chronic Heart failure type: unspecified Pulmonary edema J81.0 Chronicity: acute CAD (coronary artery disease) I25.10 Coronary Disease-Associated Artery/Lesion type: bypass graft [place] vs. transplanted heart: [place] heart HTN (hypertension) I10 Hypertension type: essential hypertension Hyperlipidemia E78.5 Hyperlipidemia type: unspecified CKD (chronic kidney disease) N18.4 Chronic kidney disease stage: stage 4 (severe)
[2020-11-21] MEDS: ranolazine (12HR) 500 mg Tablet 1000 MG PO (09:58)
[2020-11-21] MEDS: sevelamer 800 mg Tablet 1600 MG PO ×3 (09:59→21:29)
[2020-11-21] MEDS: aspirin 81 mg EC Tablet PO (09:59)
[2020-11-21] MEDS: famotidine 20 mg Tablet PO (09:59)
[2020-11-21] MEDS: folic acid 1 mg Tablet PO (09:59)
[2020-11-21] MEDS: thiamine 100 mg Tablet PO (09:59)
[2020-11-21] MEDS: cefTRIAXone 1,000 MG in sodium chloride 0.9% (plus) 50 ML 100 MG IV (10:00)
[2020-11-21] MEDS: isosorbide mononitrate ER 60 mg Tablet 120 MG PO (10:00)
[2020-11-21] MEDS: multivitamin therapeutic Tablet 1 TAB PO (10:00)
[2020-11-21] MEDS: carvedilol 6.25 mg Tablet PO ×2 (10:00→21:29)
[2020-11-21 11:26] LABS: Glucose Point of Care 305 mg/dL (70-110)
--- NOTE | 2020-11-21 11:33 | PC.SOCIAL ---
IMM Update Pg. 2 of IMM Updated and reviewed with patient, who verbalized understanding. Copy provided.
[2020-11-21 13:05] LABS: Anion Gap 21.2 (5-19); Blood Urea Nitrogen 78 mg/dL (8-23); Calcium 8.2 mg/dL (8.5-10.5); Carbon Dioxide 22 mmol/L (22-29); Chloride 93 mmol/L (98-107); Glucose 250 mg/dL (65-115); Osmolality Calculated 304 mOsm/kg (285-295); Potassium 5.2 mmol/L (3.5-5.1); Sodium 131 mmol/L (136-145)
--- NOTE | 2020-11-21 13:20 | PM.PN ---
Subjective Subjective: Interval history: Still having some dry heaving this morning, no chest pain, no shortness of breath, he did receive dialysis late yesterday, as the dialysis nurse was not notified, he did not finish his session till 8 PM, he will receive Lasix this morning, plans a possible HD this afternoon depending on how he responds to Lasix, Vitals/I&O/Wt Last Vital Signs Temp 97.5 F L 11/21/20 11:25 Pulse 91 11/21/20 11:25 Resp 31 H 11/21/20 11:25 BP 142/85 11/21/20 11:25 Pulse Ox 94 11/21/20 11:25 11/20/20 11/21/20 11/21/20 22:59 06:59 14:59 Intake Total 240 / 340 0 / 340 50 / 50 Output Total 150 / 155 75 / 230 Balance 90 / 185 -75 / 110 50 / 50 Weight last 48 hrs Weight 96.524 kg Weight 99.564 kg Physical Exam Const: COMMON NORMALS: no acute distress and patient oriented x3 Neck/C-Spine: COMMON NORMALS: no JVD Chest: OTHER: Left HD catheter in place Resp: COMMON NORMALS: normal respiratory effort, No retractions, No use of accessory muscles and clear to auscultation bilaterally AUSCULTATION: clear to auscultation bilaterally Cardio: COMMON NORMALS: no JVD, regular rate, regular rhythm, S1 normal heart sound present and S2 normal heart sound present RATE: regular rate RHYTHM: regular rhythm HEART SOUNDS: S1 normal heart sound present and S2 normal heart sound present GI: COMMON NORMALS: Normal to inspection, nondistended, normoactive bowel sounds present and Soft to palpation PALPATION: Yes Soft to palpation Extremity: COMMON NORMALS: no pedal edema Neuro: COMMON NORMALS: patient oriented x3 Psych: COMMON NORMALS: mental status grossly normal Urinary Catheter Management^: Alejandre: Cath Placed During This Visit: yes Reason for Continuing Indwelling Catheter: Accurate Measurement of Urinary Output in Critically Ill Patients Urinary Catheter Date of Insertion: 11/16/20 Urinary Catheter Time of Insertion: 03:05 Data : 11/21/20 04:46 11/21/20 12:30 A&P Assessment and plan (1) Acute and chronic respiratory failure with hypoxia: Secondary to acute flash pulmonary edema Currently doing well, on room air, no shortness of breath Plan: -Currently in CSU -Continue BiPAP as needed during the day, schedule during the night -Received HD yesterday, 1 dose of Lasix today, HD after possibly -Monitor respiratory status closely, monitor urine output, monitor creatinine, potassium -Patient is a limited code, does not want to be intubated Status: Acute (2) Non-ST elevation [place] (NSTEMI): with chest pain and shortness of breath Currently symptom-free History of CABG, 5 stents Baseline troponin 377, 6-hour 2084, 2461 BNP 67159 EKG shows sinus tachycardia, left bundle branch block Etiology likely related to acute flash pulmonary edema, however given prior cardiac history, cannot rule out underlying cardiovascular etiology Cardiac cath Patent SEVILLA to LAD. RCA is patent with multiple stents. in-stent restenosis of 50% in distal segments. SVG grafts are occluded ostially and probably culprit. Distal left main occluded. Received about 130 cc of contrast. Plan: -Continue aspirin, statin, Plavix, Coreg -Continue Ranexa, Imdur -Cardiology on consult Status: Acute (3) Pulmonary edema: Status: Acute Qualifiers: Chronicity: acute Qualified Code(s): J81.0 - Acute pulmonary edema (4) Congestive heart failure: Status: Acute Qualifiers: Heart failure chronicity: acute on chronic Heart failure type: unspecified Qualified Code(s): I50.9 - Heart failure, unspecified (5) HTN (hypertension): Status: Acute Qualifiers: Hypertension type: essential hypertension Qualified Code(s): I10 - Essential (primary) hypertension (6) Hyperlipidemia: Status: Acute Qualifiers: Hyperlipidemia type: unspecified Qualified Code(s): E78.5 - Hyperlipidemia, unspecified (7) CAD (coronary artery disease): Status: Acute Qualifiers: Coronary Disease-Associated Artery/Lesion type: bypass graft [place] vs. transplanted heart: [place] heart (8) CKD (chronic kidney disease): -Baseline creatinine unknown Status: Acute Qualifiers: Chronic kidney disease stage: stage 4 (severe) Qualified Code(s): N18.4 - Chronic kidney disease, stage 4 (severe) (9) Contrast dye induced nephropathy: -Creatinine up to 6.2, urine output 225, after receiving contrast for coronary angiogram -Monitor urine output monitor creatinine, monitor electrolytes -Tunneled dialysis catheter in place -Nephrology service has been consulted Status: Acute Additional A&P Information Plan for today give Lasix, see the need for HD, continue monitoring electrolytes, monitor for fluid overload 75-year-old male with past medical history of coronary artery disease, CHF, advanced chronic kidney disease, diabetes who presents with chest tightness and shortness of breath. Acute onset. CODE STATUS. Limited code. He is okay with cardiovascular resuscitation but does not want to be intubated or mechanically ventilated. He is okay with BiPAP. Hypertension. Hyperkalemia. Resolved Reported daily alcohol use. We will start vitamins and CIWA protocol. No evidence of withdrawals at this time. Uncontrolled diabetes. On subcu insulin DVT prophylaxis. Subcu heparin The plan of care was discussed with the patient and his . They verbalized understanding and agreement. Attestations Medical Necessity Statement*: Patient requires hospitalization, inpatient, for contrast-induced nephropathy Coding Level of Care Code Acute Engineering Associate for [facility] Diagnoses Acute and chronic respiratory failure with hypoxia J96.21 Non-ST elevation [place] (NSTEMI) I21.4 Pulmonary edema J81.0 Chronicity: acute Congestive heart failure I50.9 Heart failure chronicity: acute on chronic Heart failure type: unspecified HTN (hypertension) I10 Hypertension type: essential hypertension Hyperlipidemia E78.5 Hyperlipidemia type: unspecified CAD (coronary artery disease) I25.10 Coronary Disease-Associated Artery/Lesion type: bypass graft [place] vs. transplanted heart: [place] heart CKD (chronic kidney disease) N18.4 Chronic kidney disease stage: stage 4 (severe) Contrast dye induced nephropathy N14.1; T50.8X5A
[2020-11-21 16:04] LABS: Glucose Point of Care 256 mg/dL (70-110)
[2020-11-21 20:56] LABS: Glucose Point of Care 183 mg/dL (70-110)
[2020-11-22] VITALS (12 sets, daily range): BP systolic 125–146; BP diastolic 59–84; PULSE 84–93; RESP 18–39; TEMP 36.6–36.9; O2SAT 92–95
[2020-11-22] MEDS: heparin 5,000 unit/mL INJ 1 mL 5000 UNIT SUBCUT ×2 (00:35→11:34)
[2020-11-22] MEDS: atorvastatin 40 mg Tablet 80 MG PO (01:11)
[2020-11-22 04:22] LABS: Basophils % 0.4 %; Eosinophils # 0.1 10^3/uL (0.0-0.8); Eosinophils % 1.8 %; Hematocrit 27.5 % (42.0-52.0); Hemoglobin 9.3 g/dL (11.7-16.6); Lymphocytes # 0.8 10^3/uL (0.8-4.8); Lymphocytes % 11.6 %; Mean Corpuscular HGB Conc 33.8 g/dL (30.0-36.0); Mean Corpuscular Hemoglobin 32.6 pg (28.0-34.0); Mean Corpuscular Volume 96.5 fL (80-94); Mean Platelet Volume 11.5 fL (7.4-10.4); Monocytes # 0.8 10^3/uL (0.2-0.9); Monocytes % 11.2 %; Neutrophils # 5.24 10^3/uL (1.8-7.7); Neutrophils % 74.6 %; Nucleated Red Blood Cells % 0 %; Platelet Count 169 10^3/cmm (130-400); Red Blood Count 2.85 10^6/uL (4.1-5.3); Red Cell Distribution Width 11.7 % (12.1-15.1)
[2020-11-22 04:39] LABS: Alanine Aminotransferase 11 U/L (0-41); Albumin Level 3.6 g/dL (3.5-5.2); Alkaline Phosphatase 62 IU/L (40-130); Anion Gap 18.4 (5-19); Aspartate Amino Transferase 19 U/L (0-40); Blood Urea Nitrogen 48 mg/dL (8-23); Calcium 8.1 mg/dL (8.5-10.5); Carbon Dioxide 24 mmol/L (22-29); Chloride 98 mmol/L (98-107); Creatine Phosphokinase 163 U/L (39-308); Globulin 2.8 g/dL (1.3-4.6); Glucose 153 mg/dL (65-115); Magnesium 2.1 mg/dL (1.7-2.3); Osmolality Calculated 298 mOsm/kg (285-295); Phosphorus 4.9 mg/dL (2.5-4.5); Potassium 4.4 mmol/L (3.5-5.1); Sodium 136 mmol/L (136-145); Total Bilirubin 0.5 mg/dL (0.15-1.2); Total Protein 6.4 g/dL (6.6-8.7)
[2020-11-22 05:21] LABS: Ferritin 321 ng/mL (30-400); Iron 50 ug/dL (59-158); Percent Saturation 19.6 % (20-50); Total Iron Binding Capacity 254 mcg/dl; Unsaturated Iron Binding 204 ug/dL (112-347)
[2020-11-22 06:59] LABS: Glucose Point of Care 201 mg/dL (70-110)
--- NOTE | 2020-11-22 07:28 | P.PN_ITS ---
Subjective Subjective: Interval history: feels better. less sob. still nausea and poor appetite. no cp or vomiting or diarrhea. +ALVARADO, no orthopnea Medications: Reviewed: Yes Medication Review Details: Current Medications Acetaminophen (Acetaminophen 325 Mg Tablet) 650 mg PO Q6H PRN PRN Reason: MILD PAIN Albuterol/Ipratropium (Ipratropium-Albuterol 3 Ml Neb) 3 ml INHALATION Q4H PRN PRN Reason: SHORTNESS OF BREATH Aspirin (Aspirin 81 Mg Ec Tablet) 81 mg PO DAILY [facility] Last Admin: 11/21/20 09:59 Dose: 81 mg Documented by: Atorvastatin Calcium (Atorvastatin 40 Mg Tablet) 80 mg PO Q24H [facility] Last Admin: 11/22/20 01:11 Dose: 80 mg Documented by: Atropine Sulfate (Atropine 1 Mg/Ml Sdv 1 Ml) 0.5 mg IVP PRN PRN PRN Reason: Symptomatic bradycardia Carvedilol (Carvedilol 6.25 Mg Tablet) 6.25 mg PO 0900,2100 [facility] Last Admin: 11/21/20 21:29 Dose: 6.25 mg Documented by: Clopidogrel Bisulfate (Clopidogrel 75 Mg Tablet) 75 mg PO DAILY [facility] Last Admin: 11/20/20 08:28 Dose: 75 mg Documented by: Dextrose (Dextrose 50% Syringe 50 Ml) 25 ml IVP ONCE PRN; Protocol PRN Reason: hypoglycemia protocol Dextrose (Dextrose 50% Syringe 50 Ml) 50 ml IVP PRN PRN; Protocol PRN Reason: hypoglycemia protocol Famotidine (Famotidine 20 Mg Tablet) 20 mg PO DAILY [facility] Last Admin: 11/21/20 09:59 Dose: 20 mg Documented by: Folic Acid (Folic Acid 1 Mg Tablet) 1 mg PO DAILY [facility] Last Admin: 11/21/20 09:59 Dose: 1 mg Documented by: Glucagon (Glucagon 1 Mg/Ml Inj 1 Ml) 1 mg IM ONCE PRN; Protocol PRN Reason: Adult Acute Hypoglycemia Prot. Heparin Sodium (Beef Lung) (Heparin 5,000 Unit/Ml Inj 1 Ml) 5,000 unit SUBCUT Q12H [facility] Last Admin: 11/22/20 00:35 Dose: 5,000 unit Documented by: Hydralazine HCl (Hydralazine 20 Mg/Ml Inj 1 Ml) 10 mg IVP Q4H PRN PRN Reason: SBP above 155 Last Admin: 11/16/20 03:50 Dose: 10 mg Documented by: Dextrose (D5w) 500 mls @ 100 mls/hr IV ONCE PRN; Protocol PRN Reason: Adult Acute Hypoglycemia Prot Ceftriaxone Sodium 1,000 mg/ (Sodium Chloride) 50 mls @ 100 mls/hr IV Q24H [facility]; Protocol Last Infusion: 11/21/20 10:34 Dose: Infused Documented by: Insulin Aspart (Insulin Aspart 100 Unit/1 Ml) 0 unit SUBCUT TIDWM [facility]; Protocol Last Admin: 11/21/20 20:52 Dose: Not Given Documented by: Insulin Aspart (Insulin Aspart 100 Unit/1 Ml) 0 unit SUBCUT BEDTIME [facility]; Protocol Last Admin: 11/21/20 21:21 Dose: 6 unit Documented by: Isosorbide Mononitrate (Isosorbide Mononitrate Er 60 Mg Tablet) 120 mg PO DAILY [facility] Last Admin: 11/21/20 10:00 Dose: 120 mg Documented by: Magnesium Hydroxide (Magnesium Hydroxide 30 Ml Udc) 30 ml PO DAILY PRN PRN Reason: CONSTIPATION Metoclopramide HCl (Metoclopramide 5 Mg/Ml Sdv 2 Ml) 5 mg IVP Q6H PRN PRN Reason: NAUSEA AND VOMITING Multivitamins Therapeutic (Multivitamin Therapeutic Tablet) 1 tab PO DAILY [facility] Last Admin: 11/21/20 10:00 Dose: 1 tab Documented by: Naloxone HCl (Naloxone 0.4 Mg/Ml Sdv) 0.1 mg IVP Q2M PRN PRN Reason: RESPIRATORY RATE < 8/MIN Nitroglycerin (Nitroglycerin 0.4 Mg Sublingual Tablet) 0.4 mg SUBLINGUAL Q5M PRN PRN Reason: CHEST PAIN Ondansetron HCl (Ondansetron 2 Mg/Ml Sdv 2 Ml) 4 mg IVP Q6H PRN PRN Reason: NAUSEA AND VOMITING Last Admin: 11/21/20 00:58 Dose: 4 mg Documented by: Ranolazine (Ranolazine (12hr) 500 Mg Tablet) 1,000 mg PO BID [facility] Last Admin: 11/21/20 20:52 Dose: Not Given Documented by: Sevelamer Carbonate (Sevelamer 800 Mg Tablet) 1,600 mg PO TID [facility] Last Admin: 11/21/20 21:29 Dose: 1,600 mg Documented by: Thiamine Mononitrate (Thiamine 100 Mg Tablet) 100 mg PO DAILY [facility] Last Admin: 11/21/20 09:59 Dose: 100 mg Documented by: Vitals/I&O/Wt Last Vital Signs Temp 98.3 F 11/22/20 07:22 Pulse 92 11/22/20 07:22 Resp 23 H 11/22/20 07:22 BP 138/84 11/22/20 07:22 Pulse Ox 94 11/22/20 07:22 11/21/20 11/22/20 11/22/20 22:59 06:59 14:59 Intake Total 240 / 290 100 / 390 Output Total 200 / 200 400 / 600 Balance 40 / 90 -300 / -210 Weight last 48 hrs Weight 97.976 kg Weight 96.524 kg Physical Exam Narrative: EXAM NARRATIVE: comfortable in bed on nc02 vs noted heent- nc/at, eomi, anicteric neck supple lungs crackles b/l Rt ACW dialysis catheter heart- reg, +MANOJ abd soft, nt, nd, +BS ext 1+ b/l edema neuro- a,a, o x 3 weak Distal pulses no rashes exam by RN- telehealth visit Urinary Catheter Management^: Alejandre: Cath Placed During This Visit: yes Reason for Continuing Indwelling Catheter: Accurate Measurement of Urinary Ou tput in Critically Ill Patients Urinary Catheter Date of Insertion: 11/16/20 Urinary Catheter Time of Insertion: 03:05 Data : 11/22/20 04:00 11/22/20 04:00 A&P Additional A&P Information 1. Oliguric renal failure -ATN, Q Cholesterol Emboli, MIKE -s/p HD last 2 says -dose lasix now. - monitor chemistries and monitor for renal recovery Avoid usual nephrotoxic agents Dose medication for GFR less than 15. 1b. CKD stage 3b- 4 from DM and HTN 2. hyponatremia- improved w/ HD 3.Non-STEMI Management per cardiology, status post [facility] on 08/20 3b. CHF- attempt lasix- if fails then may need repeat HD tomorrow 4. anemia - tsat 19.6%, ferritin 321- will give iv iron 5. bone- mineral- metabolism of ckd - phos 4.9 w/ HD and binders - will monitor -replace vit d and may need calcitriol Dr. Bernardo called and spoke to Dr. Wells's RN and Cande Pleitez his AWNING FINISHER in Nephrology. D/w bedside RN Patient seen and examined via telemedicine, with the assistance of the bedside RN Attestations Medical Necessity Statement*: joana, Non STEMI, CHF Time Spent in Patient Care: 16 - 35 minutes Coding Level of Care Code Acute Accounts Receivable Administrator for Vijay Terrazas
[2020-11-22] MEDS: FUROsemide 10 mg/mL SDV 10mL 60 MG IVP (08:04)
[2020-11-22] MEDS: folic acid 1 mg Tablet PO (08:06)
[2020-11-22] MEDS: ranolazine (12HR) 500 mg Tablet 1000 MG PO ×2 (08:06→16:50)
[2020-11-22] MEDS: aspirin 81 mg EC Tablet PO (08:06)
[2020-11-22] MEDS: sevelamer 800 mg Tablet PO ×3 (08:06→21:36)
[2020-11-22] MEDS: carvedilol 6.25 mg Tablet PO ×2 (08:07→21:36)
[2020-11-22] MEDS: thiamine 100 mg Tablet PO (08:07)
[2020-11-22] MEDS: famotidine 20 mg Tablet PO (08:08)
[2020-11-22] MEDS: multivitamin therapeutic Tablet 1 TAB PO (08:08)
[2020-11-22] MEDS: isosorbide mononitrate ER 60 mg Tablet 120 MG PO (08:08)
[2020-11-22] MEDS: cefTRIAXone 1,000 MG in sodium chloride 0.9% (plus) 50 ML 100 MG IV (08:08)
[2020-11-22 11:28] LABS: Glucose Point of Care 264 mg/dL (70-110)
--- NOTE | 2020-11-22 14:13 | P.PN_ITS ---
Subjective Subjective: Interval history: seen with at bedside feels less swollen tolerated HD yesterday Medications: Reviewed: Yes Vitals/I&O/Wt Last Vital Signs Temp 98.5 F 11/22/20 13:18 Pulse 92 11/22/20 13:18 Resp 22 H 11/22/20 13:18 BP 139/78 11/22/20 13:18 Pulse Ox 92 11/22/20 13:18 11/21/20 11/22/20 11/22/20 22:59 06:59 14:59 Intake Total 240 / 290 100 / 390 290 / 290 Output Total 200 / 200 400 / 600 Balance 40 / 90 -300 / -210 290 / 290 Weight last 48 hrs Weight 216 lb Weight 212 lb 12.8 oz Physical Exam Const: COMMON NORMALS: no acute distress GENERAL APPEARANCE: cooperative and comfortable Resp: COMMON NORMALS: normal respiratory effort and No retractions Cardio: COMMON NORMALS: regular rate and regular rhythm RATE: regular rate RHYTHM: regular rhythm GI: COMMON NORMALS: Soft to palpation and non-tender PALPATION: Yes Soft to palpation Extremity: OTHER: swelling Psych: COMMON NORMALS: mental status grossly normal, Normal thought process present and cooperative THOUGHT PROCESS: Normal thought process present Urinary Catheter Management^: Alejandre: Cath Placed During This Visit: yes Reason for Continuing Indwelling Catheter: Accurate Measurement of Urinary Output in Critically Ill Patients Urinary Catheter Date of Insertion: 11/16/20 Urinary Catheter Time of Insertion: 03:05 Data : 11/22/20 04:00 11/22/20 04:00 A&P Assessment and plan (1) HTN (hypertension): Status: Acute Qualifiers: Hypertension type: essential hypertension Qualified Code(s): I10 - Essential (primary) hypertension (2) Hyperlipidemia: Status: Acute Qualifiers: Hyperlipidemia type: unspecified Qualified Code(s): E78.5 - Hyperlipidemia, unspecified (3) CAD (coronary artery disease): Status: Acute Qualifiers: Coronary Disease-Associated Artery/Lesion type: bypass graft [place] vs. transplanted heart: [place] heart (4) CKD (chronic kidney disease): Status: Acute Qualifiers: Chronic kidney disease stage: stage 4 (severe) Qualified Code(s): N18.4 - Chronic kidney disease, stage 4 (severe) (5) Acute and chronic respiratory failure with hypoxia: Status: Acute Additional A&P Information #acute chronic respiratory failure --secondary to acute flash pulmonary edema --lasix, HD --monitor U/O #NSTEMI --s/p cardiac cath -- Patent SEVILLA to LAD. RCA is patent with multiple stents. in-stent restenosis of 50% in distal segments. SVG grafts are occluded ostially and probably culprit. Distal left main occluded. Received about 130 cc of contrast. --asa #Pulmonary edema --improved #CHF --improved UO --cad --lasix, asa, coreg #dm -stable, lantus, ezetimibe #HTN --stable #CKD #contrast induced nephropathy --appreciate renal recs -Monitor urine output monitor creatinine, monitor electrolytes -Tunneled dialysis catheter in place -Nephrology service has been consulted Attestations Medical Necessity Statement*: Neeraj Sheridan's hospital stay will require greater than 2 midnights for joana Coding Level of Care Code Acute Residential Child Care Counselor for [facility] Diagnoses HTN (hypertension) I10 Hypertension type: essential hypertension Hyperlipidemia E78.5 Hyperlipidemia type: unspecified CAD (coronary artery disease) I25.10 Coronary Disease-Associated Artery/Lesion type: bypass graft [place] vs. transplanted heart: [place] heart CKD (chronic kidney disease) N18.4 Chronic kidney disease stage: stage 4 (severe) Acute and chronic respiratory failure with hypoxia J96.21
[2020-11-22 16:56] LABS: Glucose Point of Care 276 mg/dL (70-110)
--- NOTE | 2020-11-22 18:53 | P.PN_ITS ---
Subjective Subjective: Interval history: He feels well. Denies any complaints. No events on telemetry. He underwent dialysis on Sunday and Sunday. Urine Output 600 mL yesterday and nearly 800 since this morning. Received Lasix 60 mg IV x1 this morning. Medications: Reviewed: Yes Vitals/I&O/Wt Last Vital Signs Temp 98.0 F 11/22/20 15:31 Pulse 89 11/22/20 15:31 Resp 18 11/22/20 15:31 BP 146/83 11/22/20 15:31 Pulse Ox 95 11/22/20 15:31 11/22/20 11/22/20 11/22/20 06:59 14:59 22:59 Intake Total 100 / 390 290 / 290 120 / 410 Output Total 400 / 600 875 / 875 Balance -300 / -210 290 / 290 -755 / -465 Weight last 48 hrs Weight 216 lb Weight 212 lb 12.8 oz Physical Exam Narrative: EXAM NARRATIVE: GENERAL: Obese man lying in bed in no respiratory distress HEENT: Pupils equal round reactive to light. No pallor or icterus. NECK: Short thick neck, No JVD appreciated. No carotid bruit. CARDIOVASCULAR SYSTEM: S1-S2 regular. no S3. No murmur rubs or gallops. RESPIRATORY SYSTEM: Air entry equal bilaterally. No wheezes. Bilateral clear to auscultation. no use of accessory muscles. ABDOMEN: Soft, obese, nontender. EXTREMITIES: No cyanosis or clubbing. No significant edema. Good peripheral pulses. HOME IMPROVEMENT ADVISOR: Patient is alert oriented ?3. No focal neurological deficits. PSYCH: Normal insight and judgment. Urinary Catheter Management^: Alejandre: Cath Placed During This Visit: yes Reason for Continuing Indwelling Catheter: Acute Urinary Retention or Obstruction Urinary Catheter Date of Insertion: 11/16/20 Urinary Catheter Time of Insertion: 03:05 Data : 11/22/20 04:00 11/22/20 04:00 A&P Assessment and plan (1) Renal failure (ARF), acute on chronic: -Likely d/t MIKE . --Nephrology has been on board. -Currently on hemodialysis and Lasix as per nephrology. Status: Acute Qualifiers: Acute renal failure type: unspecified Chronic kidney disease stage: stage 4 (severe) Qualified Code(s): N17.9 - Acute kidney failure, unspecified; N18.4 - Chronic kidney disease, stage 4 (severe) (2) Non-ST elevation HI (NSTEMI): Sudden onset dyspnea with some arm and hand pain (angina equivalent) and sweating, significantly elevated troponin and echocardiogram with wall motion abnormality in LAD and circumflex artery territory. -There seems to be drop in LV function as well when compared to echocardiogram report dated May 2018. He underwent coronary angiogram with Dr. Castro yesterday morning via right femoral access. Patent SEVILLA to LAD. RCA is patent with multiple stents. in- stent restenosis of 50% in distal segments. SVG grafts are occluded ostially.. SVG to circumflex probably culprit. Distal left main occluded, failed attempt at wiring. Received about 130 cc of contrast. -Continue to manage medically. Status: Acute (3) Congestive heart failure: Known congestive heart failure by history. Preserved LV function based on last echo report obtained. -Fluid management by dialysis and Lasix earlier this morning. Status: Acute Qualifiers: Heart failure chronicity: acute on chronic Heart failure type: unspecified Qualified Code(s): I50.9 - Heart failure, unspecified (4) Pulmonary edema: Sudden onset pulmonary edema likely in setting of NSTEMI. Status: Acute Qualifiers: Chronicity: acute Qualified Code(s): J81.0 - Acute pulmonary edema (5) CAD (coronary artery disease): h/o CABGx 3 and multiple PCI's Status: Acute Qualifiers: Coronary Disease-Associated Artery/Lesion type: bypass graft [place] vs. transplanted heart: [place] heart (6) HTN (hypertension): well controlled. Status: Acute Qualifiers: Hypertension type: essential hypertension Qualified Code(s): I10 - Essential (primary) hypertension (7) Hyperlipidemia: Status: Acute Qualifiers: Hyperlipidemia type: unspecified Qualified Code(s): E78.5 - Hyperlipidemia, unspecified (8) CKD (chronic kidney disease): Status: Acute Qualifiers: Chronic kidney disease stage: stage 4 (severe) Qualified Code(s): N18.4 - Chronic kidney disease, stage 4 (severe) Additional A&P Information Tachycardia: On Coreg 12.5 mg twice a day Obesity Anemia of chronic kidney disease Leukocytosis: resolved Thank you for allowing me to participate in patient's care. Please feel free to call with questions or concerns Attestations Medical Necessity Statement*: Patient requires hospitalization, for contrast- induced nephropathy, renal failure and NSTEMI Time Spent in Patient Care: 16 - 35 minutes (>than 50% of time spent in counselling and/or direct pt care on unit) . Coding Level of Care Code Acute Deposition Reporter for Chg Fwd Diagnoses Renal failure (ARF), acute on chronic N17.9; N18.4 Acute renal failure type: unspecified Chronic kidney disease stage: stage 4 (severe) Non-ST elevation HI (NSTEMI) I21.4 Congestive heart failure I50.9 Heart failure chronicity: acute on chronic Heart failure type: unspecified Pulmonary edema J81.0 Chronicity: acute CAD (coronary artery disease) I25.10 Coronary Disease-Associated Artery/Lesion type: bypass graft [place] vs. transplanted heart: [place] heart HTN (hypertension) I10 Hypertension type: essential hypertension Hyperlipidemia E78.5 Hyperlipidemia type: unspecified CKD (chronic kidney disease) N18.4 Chronic kidney disease stage: stage 4 (severe)
[2020-11-22 20:21] LABS: Glucose Point of Care 271 mg/dL (70-110)
[2020-11-23] VITALS (10 sets, daily range): BP systolic 133–154; BP diastolic 69–92; PULSE 84–100; RESP 17–30; TEMP 36.5–36.6; O2SAT 94–96
[2020-11-23] MEDS: atorvastatin 40 mg Tablet 80 MG PO (00:06)
[2020-11-23] MEDS: heparin 5,000 unit/mL INJ 1 mL 5000 UNIT SUBCUT ×2 (00:06→12:22)
[2020-11-23 05:25] LABS: Basophils % 0.4 %; Eosinophils # 0.4 10^3/uL (0.0-0.8); Eosinophils % 4.5 %; Hematocrit 27.3 % (42.0-52.0); Hemoglobin 9.3 g/dL (11.7-16.6); Lymphocytes # 1.1 10^3/uL (0.8-4.8); Lymphocytes % 14.1 %; Mean Corpuscular HGB Conc 34.1 g/dL (30.0-36.0); Mean Corpuscular Hemoglobin 32.5 pg (28.0-34.0); Mean Corpuscular Volume 95.5 fL (80-94); Mean Platelet Volume 11.3 fL (7.4-10.4); Monocytes # 0.9 10^3/uL (0.2-0.9); Monocytes % 11.9 %; Neutrophils # 5.34 10^3/uL (1.8-7.7); Neutrophils % 68.5 %; Nucleated Red Blood Cells % 0 %; Platelet Count 198 10^3/cmm (130-400); Red Blood Count 2.86 10^6/uL (4.1-5.3); Red Cell Distribution Width 11.7 % (12.1-15.1); White Blood Count 7.8 10^3/uL (4.0-10.0)
[2020-11-23 05:42] LABS: Alanine Aminotransferase 7 U/L (0-41); Albumin Level 3.3 g/dL (3.5-5.2); Alkaline Phosphatase 58 IU/L (40-130); Anion Gap 14.8 (5-19); Aspartate Amino Transferase 16 U/L (0-40); Blood Urea Nitrogen 62 mg/dL (8-23); Calcium 8.2 mg/dL (8.5-10.5); Carbon Dioxide 27 mmol/L (22-29); Chloride 97 mmol/L (98-107); Globulin 3.2 g/dL (1.3-4.6); Glucose 108 mg/dL (65-115); Magnesium 2.1 mg/dL (1.7-2.3); Osmolality Calculated 298 mOsm/kg (285-295); Phosphorus 4.2 mg/dL (2.5-4.5); Potassium 3.8 mmol/L (3.5-5.1); Sodium 135 mmol/L (136-145); Total Bilirubin 0.4 mg/dL (0.15-1.2); Total Protein 6.5 g/dL (6.6-8.7)
[2020-11-23 06:51] LABS: Glucose Point of Care 144 mg/dL (70-110)
--- NOTE | 2020-11-23 07:20 | PM.PN ---
Subjective Subjective: Interval history: feels better. no n/v/f/c/tesfaye/d/sob. dec edema Medications: Reviewed: Yes Medication Review Details: Current Medications Acetaminophen (Acetaminophen 325 Mg Tablet) 650 mg PO Q6H PRN PRN Reason: MILD PAIN Albuterol/Ipratropium (Ipratropium-Albuterol 3 Ml Neb) 3 ml INHALATION Q4H.RESPIRATORY PRN PRN Reason: SHORTNESS OF BREATH Aspirin (Aspirin 81 Mg Ec Tablet) 81 mg PO DAILY [facility] Last Admin: 11/22/20 08:06 Dose: 81 mg Documented by: Atorvastatin Calcium (Atorvastatin 40 Mg Tablet) 80 mg PO Q24H [facility] Last Admin: 11/23/20 00:06 Dose: 80 mg Documented by: Atropine Sulfate (Atropine 1 Mg/Ml Sdv 1 Ml) 0.5 mg IVP PRN PRN PRN Reason: Symptomatic bradycardia Carvedilol (Carvedilol 6.25 Mg Tablet) 6.25 mg PO 0900,2100 [facility] Last Admin: 11/22/20 21:36 Dose: 6.25 mg Documented by: Clopidogrel Bisulfate (Clopidogrel 75 Mg Tablet) 75 mg PO DAILY [facility] Last Admin: 11/20/20 08:28 Dose: 75 mg Documented by: Dextrose (Dextrose 50% Syringe 50 Ml) 25 ml IVP ONCE PRN; Protocol PRN Reason: hypoglycemia protocol Dextrose (Dextrose 50% Syringe 50 Ml) 50 ml IVP PRN PRN; Protocol PRN Reason: hypoglycemia protocol Famotidine (Famotidine 20 Mg Tablet) 20 mg PO DAILY [facility] Last Admin: 11/22/20 08:08 Dose: 20 mg Documented by: Folic Acid (Folic Acid 1 Mg Tablet) 1 mg PO DAILY [facility] Last Admin: 11/22/20 08:06 Dose: 1 mg Documented by: Glucagon (Glucagon 1 Mg/Ml Inj 1 Ml) 1 mg IM ONCE PRN; Protocol PRN Reason: Adult Acute Hypoglycemia Prot. Heparin Sodium (Beef Lung) (Heparin 5,000 Unit/Ml Inj 1 Ml) 5,000 unit SUBCUT Q12H [facility] Last Admin: 11/23/20 00:06 Dose: 5,000 unit Documented by: Hydralazine HCl (Hydralazine 20 Mg/Ml Inj 1 Ml) 10 mg IVP Q4H PRN PRN Reason: SBP above 155 Last Admin: 11/16/20 03:50 Dose: 10 mg Documented by: Dextrose (D5w) 500 mls @ 100 mls/hr IV ONCE PRN; Protocol PRN Reason: Adult Acute Hypoglycemia Prot Ceftriaxone Sodium 1,000 mg/ (Sodium Chloride) 50 mls @ 100 mls/hr IV Q24H [facility]; Protocol Last Infusion: 11/22/20 09:26 Dose: Infused Documented by: Insulin Aspart (Insulin Aspart 100 Unit/1 Ml) 0 unit SUBCUT TIDWM [facility]; Protocol Last Admin: 11/22/20 16:50 Dose: 8 unit Documented by: Insulin Aspart (Insulin Aspart 100 Unit/1 Ml) 0 unit SUBCUT BEDTIME [facility]; Protocol Last Admin: 11/22/20 21:35 Dose: 10 unit Documented by: Isosorbide Mononitrate (Isosorbide Mononitrate Er 60 Mg Tablet) 120 mg PO DAILY [facility] Last Admin: 11/22/20 08:08 Dose: 120 mg Documented by: Magnesium Hydroxide (Magnesium Hydroxide 30 Ml Udc) 30 ml PO DAILY PRN PRN Reason: CONSTIPATION Metoclopramide HCl (Metoclopramide 5 Mg/Ml Sdv 2 Ml) 5 mg IVP Q6H PRN PRN Reason: NAUSEA AND VOMITING Multivitamins Therapeutic (Multivitamin Therapeutic Tablet) 1 tab PO DAILY [facility] Last Admin: 11/22/20 08:08 Dose: 1 tab Documented by: Naloxone HCl (Naloxone 0.4 Mg/Ml Sdv) 0.1 mg IVP Q2M PRN PRN Reason: RESPIRATORY RATE < 8/MIN Nitroglycerin (Nitroglycerin 0.4 Mg Sublingual Tablet) 0.4 mg SUBLINGUAL Q5M PRN PRN Reason: CHEST PAIN Ondansetron HCl (Ondansetron 2 Mg/Ml Sdv 2 Ml) 4 mg IVP Q6H PRN PRN Reason: NAUSEA AND VOMITING Last Admin: 11/21/20 00:58 Dose: 4 mg Documented by: Ranolazine (Ranolazine (12hr) 500 Mg Tablet) 1,000 mg PO BID [facility] Last Admin: 11/22/20 16:50 Dose: 1,000 mg Documented by: Sevelamer Carbonate (Sevelamer 800 Mg Tablet) 800 mg PO TID [facility] Last Admin: 11/22/20 21:36 Dose: 800 mg Documented by: Thiamine Mononitrate (Thiamine 100 Mg Tablet) 100 mg PO DAILY [facility] Last Admin: 11/22/20 08:07 Dose: 100 mg Documented by: Vitals/I&O/Wt Last Vital Signs Temp 98 F 11/23/20 04:53 Pulse 86 11/23/20 05:08 Resp 30 H 11/23/20 04:53 BP 140/87 11/23/20 04:53 Pulse Ox 94 11/23/20 04:53 11/22/20 11/23/20 11/23/20 22:59 06:59 14:59 Intake Total 180 / 470 100 / 570 Output Total 1475 / 1475 700 / 2175 Balance -1295 / -1005 -600 / -1605 Weight last 48 hrs Weight 94.075 kg Weight 97.976 kg Physical Exam Narrative: EXAM NARRATIVE: comfortable in bed on nc02 vs noted heent- nc/at, eomi, anicteric neck supple lungs clear to auscultation b/l Rt ACW dialysis catheter heart- reg, +MANOJ abd soft, nt, nd, +BS ext 1+ b/l edema decreased neuro- a,a, o x 3 weak Distal pulses no rashes exam by RN- telehealth visit Urinary Catheter Management^: Alejandre: Cath Placed During This Visit: yes Reason for Continuing Indwelling Catheter: Acute Urinary Retention or Obstruction Urinary Catheter Date of Insertion: 11/16/20 Urinary Catheter Time of Insertion: 03:05 Data : 11/23/20 04:57 11/23/20 04:57 A&P Additional A&P Information 1. Oliguric renal failure -ATN, Q Cholesterol Emboli, MIKE -s/p HD and 11/21/20 -s/p lasix on 11/22/20 -hold hd today - monitor chemistries and UOP - monitor for renal recovery Avoid usual nephrotoxic agents Dose medication for GFR less than 15. -please keep dialysis catheter in for now 1b. CKD stage 3b- 4 from DM and HTN 2. hyponatremia- improved w/ HD 3.Non-STEMI Management per cardiology, status post [facility] on 08/20 3b. CHF- clinically improved -appears euvolemic 4. anemia - tsat 19.6%, ferritin 321- will give iv iron 5. bone- mineral- metabolism of ckd - phos 4.2 w/ HD and binders - will monitor -likely d/c sevelamer soon -replace vit d and may need calcitriol Dr. Bernardo called and spoke to Dr. Wells's RN and Cande Pleitez his PHARMACY INTERN in Nephrology. D/w bedside RN Patient seen and examined via telemedicine, with the assistance of the bedside RN Attestations Medical Necessity Statement*: AMI, s/p cath, CARLEE Time Spent in Patient Care: 16 - 35 minutes Coding Level of Care Code Acute Casing Cooker for Vijay Terrazas
--- NOTE | 2020-11-23 08:34 | XR_ITS ---
WS: [id number] Exam: XR chest 1V portable [id number] Date/Time of Exam: 11/23/2020 11:34 AM Reason For Exam: hypoxemia Comparison 11/18/2020. Mild cardiac enlargement unchanged. The lungs are clear and fully inflated. No pleural effusions. A r ight-sided double-lumen central line extends into the right atrium. Signs of previous median sternoto my and CABG surgery. Monitoring leads superimpose the chest. Surgical clips along the left axilla. XR/XR chest 1V portable [id number] IMPRESSION: 1. Mild cardiac enlargement unchanged. No acute process noted.
--- NOTE | 2020-11-23 09:10 | PC.NURSE ---
Patient refused xray this AM
[2020-11-23] MEDS: cefTRIAXone 1,000 MG in sodium chloride 0.9% (plus) 50 ML 100 MG IV (09:20)
[2020-11-23] MEDS: multivitamin therapeutic Tablet 1 TAB PO (09:23)
[2020-11-23] MEDS: thiamine 100 mg Tablet PO (09:25)
[2020-11-23] MEDS: famotidine 20 mg Tablet PO (09:25)
[2020-11-23] MEDS: aspirin 81 mg EC Tablet PO (09:26)
[2020-11-23] MEDS: folic acid 1 mg Tablet PO (09:26)
[2020-11-23] MEDS: carvedilol 6.25 mg Tablet PO ×2 (09:27→21:15)
[2020-11-23] MEDS: ranolazine (12HR) 500 mg Tablet 1000 MG PO ×2 (09:27→17:38)
[2020-11-23] MEDS: isosorbide mononitrate ER 60 mg Tablet 120 MG PO (09:28)
[2020-11-23] MEDS: sevelamer 800 mg Tablet PO ×3 (09:28→21:15)
--- NOTE | 2020-11-23 09:29 | PC.CHAP ---
Pastoral Care Encounter/Spiritual Assessment Type of Contact [] Declined rescue worker visit [] Patient/Family/Request visit [] Outpatient visit [] Follow-up visit [] Physician referral [] Code/Alert [x] Routine visit [] Staff referral [] Actively dying [] Patient sleeping [x] Family support [] [] Out of room [] Palliative care [] [] Receiving care in room [] Pre-surgical visit [] Trauma [] Long length of stay [] ICU visit [] Other: Relational/Emotional Strength [] Patient feels connected with others/family/visitors/staff [] Distress [] Loneliness/isolation [] Abandonment Spirituality of Patient [] Person of Estephania [] Attends Sabianist of their Estephania [] Believes in Prayer [] Reads Bible or Pentecostalism materials [] There are Spiritual issues to be addressed [place] Chief Delivery Interventions [x] Prayer [] Active listening [] Non-anxious presence [] Spiritual/emotional support [] Crisis/trauma care [] Spiritual counseling [] Bereavement support [] Provided bereavement packet [] Provided Bible/devotional materials [] Provided toy/stuffed animal, coloring book to patient or family member [] Provided Communion [] Anointing/[place] [] Salvation [x] Completed spiritual assessment [] Other: Impact on Illness or Injury [] Angry [] Fearful [] Anxious [] Often cries [] Exhaustion [] Unable to work [] Unable to attend voodoo [] Unable to walk/stand [] Unable to read [] Unable to drive [] Unable to eat/drink [] Unable to sleep [] Unable to be with family [] Patient intubated [] Other: Summary patient transferred from other department... doesn't believe in prayer.. not real happy with care in this hospital.. just let patient state his issues Time spent with patient 10 min
--- NOTE | 2020-11-23 09:29 | PC.SOCIAL ---
IMM Updated Updated pt on Pg 2 IMM. No questions voiced. Provided pt a copy. Initialed, dated, & timed copy in chart.
--- NOTE | 2020-11-23 11:08 | ECG_ITS ---
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 Measurements Intervals [place] Rate: 82 P: 23 IA: 197 QRS: -12 QRSD: 161 T: 148 QT: 465 QTc: 545 Interpretive Statements SINUS RHYTHM WITH OCCASIONAL SUPRAVENTRICULAR PREMATURE COMPLEXES LEFT BUNDLE BRANCH BLOCK [120+ ms QRS DURATION, 80+ ms Q/S IN V1/V2, 85+ ms R IN I/aVL/V5/V6] Compared to ECG 11/19/2020 15:13:19 Left bundle-branch block now present Intraventricular conduction delay no longer present Myocardial infarct finding no longer present Electronically Signed On 11-23-2020 23:01:55 CDT by Danitza Collado M.D. [id number]
[2020-11-23 12:03] LABS: Glucose Point of Care 326 mg/dL (70-110)
--- NOTE | 2020-11-23 14:18 | P.PN_ITS ---
Subjective Subjective: Interval history: feels better iv iron ordered at bedside HD yesterday Medications: Reviewed: Yes Vitals/I&O/Wt Last Vital Signs Temp 97.8 F 11/23/20 11:07 Pulse 84 11/23/20 11:07 Resp 21 H 11/23/20 11:07 BP 133/69 11/23/20 11:07 Pulse Ox 94 11/23/20 11:07 11/22/20 11/23/20 11/23/20 22:59 06:59 14:59 Intake Total 180 / 470 100 / 570 510 / 510 Output Total 1475 / 1475 700 / 2175 Balance -1295 / -1005 -600 / -1605 510 / 510 Weight last 48 hrs Weight 207 lb 6.4 oz Weight 216 lb Physical Exam Const: COMMON NORMALS: no acute distress and patient oriented x3 Eye: COMMON NORMALS: EOMs intact bilaterally Cardio: COMMON NORMALS: regular rate and regular rhythm RATE: regular rate RHYTHM: regular rhythm GI: COMMON NORMALS: Normal to inspection, nondistended, normoactive bowel sounds present, Soft to palpation and non-tender PALPATION: Yes Soft to palpation Neuro: COMMON NORMALS: patient oriented x3 and moves all extremities Psych: COMMON NORMALS: mental status grossly normal and Normal thought process present THOUGHT PROCESS: Normal thought process present Urinary Catheter Management^: Alejandre: Cath Placed During This Visit: yes Reason for Continuing Indwelling Catheter: Acute Urinary Retention or Obstruction Urinary Catheter Date of Insertion: 11/16/20 Urinary Catheter Time of Insertion: 03:05 Data : 11/23/20 04:57 11/23/20 04:57 A&P Assessment and plan (1) Renal failure (ARF), acute on chronic: Status: Acute Qualifiers: Acute renal failure type: unspecified Chronic kidney disease stage: stage 4 (severe) Qualified Code(s): N17.9 - Acute kidney failure, unspecified; N18.4 - Chronic kidney disease, stage 4 (severe) (2) Contrast dye induced nephropathy: Status: Acute (3) Pulmonary edema: Status: Acute Qualifiers: Chronicity: acute Qualified Code(s): J81.0 - Acute pulmonary edema (4) CKD (chronic kidney disease): Status: Acute Qualifiers: Chronic kidney disease stage: stage 4 (severe) Qualified Code(s): N18.4 - Chronic kidney disease, stage 4 (severe) (5) CAD (coronary artery disease): Status: Acute Qualifiers: Coronary Disease-Associated Artery/Lesion type: bypass graft [place] vs. transplanted heart: [place] heart (6) HTN (hypertension): Status: Acute Qualifiers: Hypertension type: essential hypertension Qualified Code(s): I10 - Essential (primary) hypertension (7) Congestive heart failure: Status: Acute Qualifiers: Heart failure chronicity: acute on chronic Heart failure type: unspecified Qualified Code(s): I50.9 - Heart failure, unspecified Additional A&P Information #acute chronic respiratory failure --secondary to acute flash pulmonary edema --lasix, HD --monitor IO #NSTEMI --s/p cardiac cath -- Patent SEVILLA to LAD. RCA is patent with multiple stents. in-stent restenosis of 50% in distal segments. SVG grafts are occluded ostially and probably culpr it. Distal left main occluded. Received about 130 cc of contrast. --asa #anemia --iv iron ordered #Pulmonary edema --improved #CHF --improved UO --cad --lasix, asa, coreg #dm -stable, lantus, ezetimibe #HTN --stable #CKD #contrast induced nephropathy --appreciate renal recs -Monitor urine output monitor creatinine, monitor electrolytes -Tunneled dialysis catheter in place -Nephrology service has been consulted dispo: RHETT simms and when ok with nephrology and cardiology Attestations Medical Necessity Statement*: Neeraj Khang [facility]'s hospital stay will require greater than 2 midnights for pulmonary edema Coding Level of Care Code Acute Wall Washer for [facility] Fwd Diagnoses Renal failure (ARF), acute on chronic N17.9; N18.4 Acute renal failure type: unspecified Chronic kidney disease stage: stage 4 (severe) Contrast dye induced nephropathy N14.1; T50.8X5A Pulmonary edema J81.0 Chronicity: acute CKD (chronic kidney disease) N18.4 Chronic kidney disease stage: stage 4 (severe) CAD (coronary artery disease) I25.10 Coronary Disease-Associated Artery/Lesion type: bypass graft [place] vs. transplanted heart: [place] heart HTN (hypertension) I10 Hypertension type: essential hypertension Congestive heart failure I50.9 Heart failure chronicity: acute on chronic Heart failure type: unspecified
[2020-11-23 16:37] LABS: Glucose Point of Care 302 mg/dL (70-110)
--- NOTE | 2020-11-23 17:51 | PM.PN ---
Subjective Subjective: Interval history: short runs of asymptomatic SVT on telemetry. No complaints. 2100 ml UO yesterday and 1000 ml since am. Medications: Reviewed: Yes Vitals/I&O/Wt Last Vital Signs Temp 97.8 F 11/23/20 15:48 Pulse 88 11/23/20 15:48 Resp 23 H 11/23/20 15:48 BP 154/92 11/23/20 15:48 Pulse Ox 95 11/23/20 15:48 11/23/20 11/23/20 11/23/20 06:59 14:59 22:59 Intake Total 100 / 570 510 / 510 240 / 750 Output Total 700 / 2175 1000 / 1000 Balance -600 / -1605 510 / 510 -760 / -250 Weight last 48 hrs Weight 207 lb 6.4 oz Weight 216 lb Physical Exam Narrative: EXAM NARRATIVE: GENERAL: Obese man lying in bed in no respiratory distress HEENT: Pupils equal round reactive to light. No pallor or icterus. NECK: Short thick neck, No JVD appreciated. No carotid bruit. CARDIOVASCULAR SYSTEM: S1-S2 regular. no S3. No murmur rubs or gallops. RESPIRATORY SYSTEM: Air entry equal bilaterally. No wheezes. Bilateral clear to auscultation. no use of accessory muscles. ABDOMEN: Soft, obese, nontender. EXTREMITIES: No cyanosis or clubbing. No significant edema. Good peripheral pulses. FOOD AND BEVERAGE ASSISTANT MANAGER: Patient is alert oriented ?3. No focal neurological deficits. PSYCH: Normal insight and judgment. Urinary Catheter Management^: Alejandre: Cath Placed During This Visit: yes Reason for Continuing Indwelling Catheter: Acute Urinary Retention or Obstruction Urinary Catheter Date of Insertion: 11/16/20 Urinary Catheter Time of Insertion: 03:05 Data : 11/23/20 04:57 11/23/20 04:57 A&P Assessment and plan (1) Renal failure (ARF), acute on chronic: -Likely d/t MIKE . --Nephrology has been on board. -Currently on hemodialysis and Lasix as per nephrology. Status: Acute Qualifiers: Acute renal failure type: unspecified Chronic kidney disease stage: stage 4 (severe) Qualified Code(s): N17.9 - Acute kidney failure, unspecified; N18.4 - Chronic kidney disease, stage 4 (severe) (2) Non-ST elevation [place] (NSTEMI): Sudden onset dyspnea with some arm and hand pain (angina equivalent) and sweating, significantly elevated troponin and echocardiogram with wall motion abnormality in LAD and circumflex artery territory. -There seems to be drop in LV function as well when compared to echocardiogram report dated May 2018. He underwent coronary angiogram with Dr. Castro yesterday morning via right femoral access. Patent SEVILLA to LAD. RCA is patent with multiple stents. in-stent restenosis of 50% in distal segments. SVG grafts are occluded ostially.. SVG to circumflex probably culprit. Distal left main occluded, failed attempt at wiring. Received about 130 cc of contrast. -Continue to manage medically. Status: Acute (3) Congestive heart failure: Ischemic cardiomyopathy with LVEF of 35%. -Fluid management by dialysis and Lasix earlier this morning. Status: Acute Qualifiers: Heart failure chronicity: acute on chronic Heart failure type: unspecified Qualified Code(s): I50.9 - Heart failure, unspecified (4) CAD (coronary artery disease): h/o CABGx 3 and multiple PCI's Status: Acute Qualifiers: Coronary Disease-Associated Artery/Lesion type: bypass graft [place] vs. transplanted heart: [place] heart Associated angina: without angina Qualified Code(s): I25.810 - Atherosclerosis of coronary artery bypass graft(s) without angina pectoris (5) HTN (hypertension): well controlled. Status: Acute Qualifiers: Hypertension type: essential hypertension Qualified Code(s): I10 - Essential (primary) hypertension (6) Hyperlipidemia: Status: Acute Qualifiers: Hyperlipidemia type: unspecified Qualified Code(s): E78.5 - Hyperlipidemia, unspecified (7) CKD (chronic kidney disease): Status: Acute Qualifiers: Chronic kidney disease stage: stage 4 (severe) Qualified Code(s): N18.4 - Chronic kidney disease, stage 4 (severe) Additional A&P Information Runs of supraventricular tachycardia: On Coreg 12.5 mg twice a day Pulmonary edema on presentation Obesity Anemia of chronic kidney disease Leukocytosis: resolved Thank you for allowing me to participate in patient's care. Please feel free to call with questions or concerns Attestations Medical Necessity Statement*: As per primary and nephrology teams Time Spent in Patient Care: 16 - 35 minutes (>than 50% of time spent in counselling and/or direct pt care on unit). Coding Level of Care Code Acute Mental Health Specialist for Chg Fwd Diagnoses Renal failure (ARF), acute on chronic N17.9; N18.4 Acute renal failure type: unspecified Chronic kidney disease stage: stage 4 (severe) Non-ST elevation [place] (NSTEMI) I21.4 Congestive heart failure I50.9 Heart failure chronicity: acute on chronic Heart failure type: unspecified CAD (coronary artery disease) I25.810 Coronary Disease-Associated Artery/Lesion type: bypass graft [place] vs. transplanted heart: [place] heart Associated angina: without angina HTN (hypertension) I10 Hypertension type: essential hypertension Hyperlipidemia E78.5 Hyperlipidemia type: unspecified CKD (chronic kidney disease) N18.4 Chronic kidney disease stage: stage 4 (severe)
[2020-11-23 20:08] LABS: Glucose Point of Care 319 mg/dL (70-110)
[2020-11-24] VITALS: BP 106/57; PULSE 89; RESP 42; TEMP 36.8; O2SAT 96
[2020-11-24] MEDS: heparin 5,000 unit/mL INJ 1 mL 5000 UNIT SUBCUT ×2 (01:25→12:27)
[2020-11-24] MEDS: atorvastatin 40 mg Tablet 80 MG PO (01:25)
[2020-11-24 04:58] VITALS: BP 113/62; PULSE 83; RESP 33; TEMP 36.7; O2SAT 91
[2020-11-24 05:00] LABS: Basophils % 0.4 %; Eosinophils # 0.4 10^3/uL (0.0-0.8); Eosinophils % 4.5 %; Hematocrit 27.4 % (42.0-52.0); Hemoglobin 9.6 g/dL (11.7-16.6); Lymphocytes # 0.9 10^3/uL (0.8-4.8); Lymphocytes % 11.4 %; Mean Corpuscular Hemoglobin 32.9 pg (28.0-34.0); Mean Corpuscular Volume 93.8 fL (80-94); Mean Platelet Volume 11.1 fL (7.4-10.4); Monocytes % 11.6 %; Neutrophils # 5.89 10^3/uL (1.8-7.7); Neutrophils % 71.4 %; Nucleated Red Blood Cells % 0 %; Platelet Count 201 10^3/cmm (130-400); Red Blood Count 2.92 10^6/uL (4.1-5.3); Red Cell Distribution Width 11.8 % (12.1-15.1); White Blood Count 8.3 10^3/uL (4.0-10.0)
[2020-11-24 05:19] LABS: Alanine Aminotransferase < 5 U/L (0-41); Albumin Level 3.2 g/dL (3.5-5.2); Alkaline Phosphatase 56 IU/L (40-130); Anion Gap 12.9 (5-19); Aspartate Amino Transferase 14 U/L (0-40); Blood Urea Nitrogen 57 mg/dL (8-23); Calcium 8.1 mg/dL (8.5-10.5); Carbon Dioxide 28 mmol/L (22-29); Chloride 97 mmol/L (98-107); Glucose 129 mg/dL (65-115); Osmolality Calculated 296 mOsm/kg (285-295); Phosphorus 3.6 mg/dL (2.5-4.5); Potassium 3.9 mmol/L (3.5-5.1); Sodium 134 mmol/L (136-145); Total Bilirubin 0.5 mg/dL (0.15-1.2); Total Protein 6.2 g/dL (6.6-8.7)
[2020-11-24 05:40] VITALS: PULSE 86
--- NOTE | 2020-11-24 06:32 | P.PN_ITS ---
Subjective Subjective: Interval history: feels well. no lugo and urinating. good appetite. no n/v/f/c/tesfaye/d Medications: Reviewed: Yes Medication Review Details: Current Medications Acetaminophen (Acetaminophen 325 Mg Tablet) 650 mg PO Q6H PRN PRN Reason: MILD PAIN Albuterol/Ipratropium (Ipratropium-Albuterol 3 Ml Neb) 3 ml INHALATION Q4H.RESPIRATORY PRN PRN Reason: SHORTNESS OF BREATH Aspirin (Aspirin 81 Mg Ec Tablet) 81 mg PO DAILY [facility] Last Admin: 11/22/20 08:06 Dose: 81 mg Documented by: Atorvastatin Calcium (Atorvastatin 40 Mg Tablet) 80 mg PO Q24H [facility] Last Admin: 11/23/20 00:06 Dose: 80 mg Documented by: Atropine Sulfate (Atropine 1 Mg/Ml Sdv 1 Ml) 0.5 mg IVP PRN PRN PRN Reason: Symptomatic bradycardia Carvedilol (Carvedilol 6.25 Mg Tablet) 6.25 mg PO 0900,2100 [facility] Last Admin: 11/22/20 21:36 Dose: 6.25 mg Documented by: Clopidogrel Bisulfate (Clopidogrel 75 Mg Tablet) 75 mg PO DAILY [facility] Last Admin: 11/20/20 08:28 Dose: 75 mg Documented by: Dextrose (Dextrose 50% Syringe 50 Ml) 25 ml IVP ONCE PRN; Protocol PRN Reason: hypoglycemia protocol Dextrose (Dextrose 50% Syringe 50 Ml) 50 ml IVP PRN PRN; Protocol PRN Reason: hypoglycemia protocol Famotidine (Famotidine 20 Mg Tablet) 20 mg PO DAILY [facility] Last Admin: 11/22/20 08:08 Dose: 20 mg Documented by: Folic Acid (Folic Acid 1 Mg Tablet) 1 mg PO DAILY [facility] Last Admin: 11/22/20 08:06 Dose: 1 mg Documented by: Glucagon (Glucagon 1 Mg/Ml Inj 1 Ml) 1 mg IM ONCE PRN; Protocol PRN Reason: Adult Acute Hypoglycemia Prot. Heparin Sodium (Beef Lung) (Heparin 5,000 Unit/Ml Inj 1 Ml) 5,000 unit SUBCUT Q12H [facility] Last Admin: 11/23/20 00:06 Dose: 5,000 unit Documented by: Hydralazine HCl (Hydralazine 20 Mg/Ml Inj 1 Ml) 10 mg IVP Q4H PRN PRN Reason: SBP above 155 Last Admin: 11/16/20 03:50 Dose: 10 mg Documented by: Dextrose (D5w) 500 mls @ 100 mls/hr IV ONCE PRN; Protocol PRN Reason: Adult Acute Hypoglycemia Prot Ceftriaxone Sodium 1,000 mg/ (Sodium Chloride) 50 mls @ 100 mls/hr IV Q24H [facility]; Protocol Last Infusion: 11/22/20 09:26 Dose: Infused Documented by: Insulin Aspart (Insulin Aspart 100 Unit/1 Ml) 0 unit SUBCUT TIDWM [facility]; Protocol Last Admin: 11/22/20 16:50 Dose: 8 unit Documented by: Insulin Aspart (Insulin Aspart 100 Unit/1 Ml) 0 unit SUBCUT BEDTIME [facility]; Protocol Last Admin: 11/22/20 21:35 Dose: 10 unit Documented by: Isosorbide Mononitrate (Isosorbide Mononitrate Er 60 Mg Tablet) 120 mg PO DAILY [facility] Last Admin: 11/22/20 08:08 Dose: 120 mg Documented by: Magnesium Hydroxide (Magnesium Hydroxide 30 Ml Udc) 30 ml PO DAILY PRN PRN Reason: CONSTIPATION Metoclopramide HCl (Metoclopramide 5 Mg/Ml Sdv 2 Ml) 5 mg IVP Q6H PRN PRN Reason: NAUSEA AND VOMITING Multivitamins Therapeutic (Multivitamin Therapeutic Tablet) 1 tab PO DAILY [facility] Last Admin: 11/22/20 08:08 Dose: 1 tab Documented by: Naloxone HCl (Naloxone 0.4 Mg/Ml Sdv) 0.1 mg IVP Q2M PRN PRN Reason: RESPIRATORY RATE < 8/MIN Nitroglycerin (Nitroglycerin 0.4 Mg Sublingual Tablet) 0.4 mg SUBLINGUAL Q5M PRN PRN Reason: CHEST PAIN Ondansetron HCl (Ondansetron 2 Mg/Ml Sdv 2 Ml) 4 mg IVP Q6H PRN PRN Reason: NAUSEA AND VOMITING Last Admin: 11/21/20 00:58 Dose: 4 mg Documented by: Ranolazine (Ranolazine (12hr) 500 Mg Tablet) 1,000 mg PO BID [facility] Last Admin: 11/22/20 16:50 Dose: 1,000 mg Documented by: Sevelamer Carbonate (Sevelamer 800 Mg Tablet) 800 mg PO TID [facility] Last Admin: 11/22/20 21:36 Dose: 800 mg Documented by: Thiamine Mononitrate (Thiamine 100 Mg Tablet) 100 mg PO DAILY [facility] Last Admin: 11/22/20 08:07 Dose: 100 mg Documented by: Vitals/I&O/Wt Last Vital Signs Temp 98.1 F 11/24/20 04:58 Pulse 86 11/24/20 05:40 Resp 33 H 11/24/20 04:58 BP 113/62 11/24/20 04:58 Pulse Ox 91 11/24/20 04:58 11/23/20 11/23/20 11/24/20 14:59 22:59 06:59 Intake Total 510 / 510 360 / 870 Output Total 2300 / 2300 550 / 2850 Balance 510 / 510 -1940 / -1430 -550 / -1980 Weight last 48 hrs Weight 94.347 kg Weight 94.075 kg Physical Exam Narrative: EXAM NARRATIVE: comfortable in bed on nc02 vs noted heent- nc/at, eomi, anicteric neck supple lungs clear to auscultation b/l Rt ACW dialysis catheter heart- reg, +MANOJ abd soft, nt, nd, +BS lugo out ext b/l edema decreased neuro- a,a, o x 3 weak Distal pulses no rashes exam by RN- telehealth visit Urinary Catheter Management^: Lugo: Cath Placed During This Visit: yes, but has since been removed by the nurse Reason for Continuing Indwelling Catheter: Accurate Measurement of Urinary Output in Critically Ill Patients Urinary Catheter Date of Insertion: 11/16/20 Urinary Catheter Time of Insertion: 03:05 Date Urinary Catheter Removed: 11/23/20 Time Urinary Catheter Discontinued: 16:00 Data : 11/24/20 04:36 11/24/20 04:36 A&P Additional A&P Information 1. Oliguric renal failure -ATN, Q Cholesterol Emboli, MIKE -s/p HD 11/20/20 and 11/21/20 -s/p lasix on 11/22/20 -hold hd today - monitor chemistries and UOP - monitor for renal recovery Avoid usual nephrotoxic agents Dose medication for GFR less than 15. -please remove dialysis catheter 1b. CKD stage 3b- 4 from DM and HTN 2. hyponatremia- Q from CARLEE- monitor w/ fluid restriction 3.Non-STEMI Management per cardiology, status post C on 08/20 3b. CHF- clinically improved -appears euvolemic to mild overload -normal cxr. If okay w/ cardiology -hold lasix 4. anemia - tsat 19.6%, ferritin 321- will give iv iron 5. bone- mineral- metabolism of ckd - phos 3.9 after renal fxn im provement and binders - d/c sevelamer soon -replace vit d and monitor pth in 4 weeks- ma y need calcitriol 6. htn- bp well controlled 7. if discharged- please have pt f/u w/ Dr. 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
[2020-11-24 06:34] LABS: Glucose Point of Care 155 mg/dL (70-110)
[2020-11-24 07:47] VITALS: BP 157/81; PULSE 88; RESP 34; TEMP 36.7; O2SAT 94
[2020-11-24] MEDS: multivitamin therapeutic Tablet 1 TAB PO (08:37)
[2020-11-24] MEDS: aspirin 81 mg EC Tablet PO (08:37)
[2020-11-24] MEDS: isosorbide mononitrate ER 60 mg Tablet 120 MG PO (08:37)
[2020-11-24] MEDS: folic acid 1 mg Tablet PO (08:37)
[2020-11-24] MEDS: famotidine 20 mg Tablet PO (08:37)
[2020-11-24] MEDS: carvedilol 6.25 mg Tablet PO (08:38)
[2020-11-24] MEDS: thiamine 100 mg Tablet PO (08:38)
--- NOTE | 2020-11-24 09:34 | PC.CHAP ---
Pastoral Care Encounter/Spiritual Assessment Type of Contact [] Declined monomer purification operator visit [] Patient/Family/Request visit [] Outpatient visit [] Follow-up visit [] Physician referral [] Code/Alert [x] Routine visit [] Staff referral [] Actively dying [] Patient sleeping [] Family support [] [] Out of room [] Palliative care [] [] Receiving care in room [] Pre-surgical visit [] Trauma [] Long length of stay [] ICU visit [] Other: Relational/Emotional Strength [] Patient feels connected with others/family/visitors/staff [] Distress [] Loneliness/isolation [] Abandonment Spirituality of Patient [] Person of Estephania [] Attends Quaker of their Estephania [] Believes in Prayer [] Reads Bible or Jehovah'S Witness materials [] There are Spiritual issues to be addressed Salvationist Interventions [x] Prayer [] Active listening [] Non-anxious presence [] Spiritual/emotional support [] Crisis/trauma care [] Spiritual counseling [] Bereavement support [] Provided bereavement packet [] Provided Bible/devotional materials [] Provided toy/stuffed animal, coloring book to patient or family member [] Provided Communion [] Anointing/[place] [] Salvation [x] Completed spiritual assessment [] Other: Impact on Illness or Injury [] Angry [] Fearful [] Anxious [] Often cries [] Exhaustion [] Unable to work [] Unable to attend islam [] Unable to walk/stand [] Unable to read [] Unable to drive [] Unable to eat/drink [] Unable to sleep [] Unable to be with family [] Patient intubated [] Other: Summary patient much improved.. kidneys are working!! looking forward to returning home soon Time spent with patient 25 min
[2020-11-24] MEDS: ranolazine (12HR) 500 mg Tablet 1000 MG PO (10:45)
[2020-11-24] MEDS: cefTRIAXone 1,000 MG in sodium chloride 0.9% (plus) 50 ML 100 MG IV (10:46)
[2020-11-24 11:20] VITALS: BP 133/69; PULSE 86; RESP 22; TEMP 36.7; O2SAT 97
[2020-11-24 11:29] LABS: Glucose Point of Care 467 mg/dL (70-110)
--- NOTE | 2020-11-24 11:49 | PC.NURSE ---
notified doctor regarding blood sugar, Dr. Dutta ordered to give the 14 units per sliding scale
--- NOTE | 2020-11-24 12:18 | P.DS_ITS ---
Discharge Providers Date of Admission: 11/16/20 00:39 Date of Discharge: November 24, 2020 Attending Provider at Admission: Max Plascencia Attending Provider at Discharge: Bakari Dutta MD Primary Care Provider: Claus Ricci MD Diagnoses at Discharge Discharge Diagnosis (1) Renal failure (ARF), acute on chronic: Status: Acute Qualifiers: Acute renal failure type: unspecified Chronic kidney disease stage: stage 4 (severe) Qualified Code(s): N17.9 - Acute kidney failure, unspecified; N18.4 - Chronic kidney disease, stage 4 (severe) (2) Non-ST elevation [place] (NSTEMI): Status: Acute (3) Congestive heart failure: Status: Acute Qualifiers: Heart failure chronicity: acute on chronic Heart failure type: unspecified Qualified Code(s): I50.9 - Heart failure, unspecified (4) CAD (coronary artery disease): Status: Acute Qualifiers: Coronary Disease-Associated Artery/Lesion type: bypass graft [place] vs. transplanted heart: [place] heart Associated angina: without angina Qualified Code(s): I25.810 - Atherosclerosis of coronary artery bypass graft(s) without angina pectoris (5) HTN (hypertension): Status: Acute Qualifiers: Hypertension type: essential hypertension Qualified Code(s): I10 - Essential (primary) hypertension (6) Hyperlipidemia: Status: Acute Qualifiers: Hyperlipidemia type: unspecified Qualified Code(s): E78.5 - Hyperlipidemia, unspecified (7) CKD (chronic kidney disease): Status: Acute Qualifiers: Chronic kidney disease stage: stage 4 (severe) Qualified Code(s): N18.4 - Chronic kidney disease, stage 4 (severe) Reason for Visit Reason for Visit: PATITO CAMPUZANO Hospital Course Hospital Course H&P Neeraj Sheridan is a 75 year old male with past medical history of coronary artery disease, CHF, chronic kidney disease, diabetes, hypertension who presents to emergency room with complaints of chest tightness and shortness of breath. Patient was found to have significant respiratory distress and hypoxia. Chest x-ray revealed pulmonary edema and CHF. BNP and troponin were elevated. EKG revealed left bundle branch block. The patient received nitroglycerin which helped with the chest tightness. Also the patient was started on BiPAP which improved his shortness of breath. The patient was also given 1 dose of Lovenox, furosemide. Currently feels better with the BiPAP. No chest pain at this time. Parts Back Counter Man Dr. Castro was consulted. He reviewed patient's EKG with ED physician. Decision was made to admit the patient and reevaluate in the morning. The patient reports similar episodes in the past. Last episode was about 2 months ago. At that time he took additional dose of Lasix and his symptoms improved at home. 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 He reports drinking couple of beers every day. Denies tobacco. Reports chronic kidney disease which is probably pretty severe. His mentions that he holds his urine very long before urinating. He denies any abdominal or back pain. No dysuria. hospital course: The patient was admitted to the ICU placed on BiPAP. Diuresed. Noted to have a non-ST elevation [place]. Started on heparin drip. Kidney function was watched closely. Cardiology nephrology and surgery consulted. The patient received dialysis secondary to ATN. Noted to have ischemic cardiomyopathy with ejection fraction of 35%. Also had runs of SVT and placed on Coreg twice daily. He is noted to have a statin allergy. Statin was held at time of discharge. Labs and symptoms including oxygen requirement had improved at time of discharge. Nephrology suggested ATN secondary to cholesterol emboli with chronic kidney disease secondary to diabetes and hypertension. Also recommended dialysis catheter to be removed prior to discharge. Follow-up with nephrology in 1 week with weekly labs Physical Exam Const: COMMON NORMALS: no acute distress and patient oriented x3 Chest: COMMONS NORMALS: normal inspection of the chest Resp: COMMON NORMALS: normal respiratory effort and No use of accessory muscles Cardio: COMMON NORMALS: regular rate and regular rhythm RATE: regular rate RHYTHM: regular rhythm GI: COMMON NORMALS: Soft to palpation and non-tender PALPATION: Yes Soft to palpation Neuro: COMMON NORMALS: patient oriented x3 Urinary Catheter Management^: Alejandre: Cath Placed During This Visit: yes, but has since been removed by the nurse Reason for Continuing Indwelling Catheter: Accurate Measurement of Urinary Output in Critically Ill Patients Urinary Catheter Date of Insertion: 11/16/20 Urinary Catheter Time of Insertion: 03:05 Date Urinary Catheter Removed: 11/23/20 Time Urinary Catheter Discontinued: 16:00 Discharge Data Data Completed and Pending: Completed Studies During Hospitalization Category Date Time Status CXRP [XR chest 1V portable 29632] R outine Exams 11/23/20 08:34 Completed XR chest 1V josefa ble [id number] Routine Exams 11/18/20 04:00 Completed XR chest 1V josefa ble [id number] Stat Exams 11/15/20 23:44 Completed CV echo wo/w cont rast [id number] Routine Ultrasound 11/16/20 01:41 Completed US renal BI* [id number] Routine Ultrasound 11/16/20 01:41 Completed Pending at discharge Category Date Time Status ENDING MACHINE OPERATOR request for service Routin e Exams 11/17/20 05:47 Taken Complete Blood Co unt w/Auto AM LABS Lab 11/25/20 04:00 Ordered Comprehensive Met abolic Panel AM LA BS Lab 11/25/20 04:00 Ordered Magnesium AM LABS Lab 11/25/20 04:00 Ordered Phosphorus AM LAB S Lab 11/25/20 04:00 Ordered Vitamin D 1,25 Di hydroxy Routine Lab 11/18/20 12:45 Received Labs from last 24 hours 11/24/20 11/24/20 11/24/20 11:21 06:30 04:36 WBC RBC Hgb Hct MCV MCH MCHC RDW Plt Count MPV Neut % (Auto) Lymph % (Auto) [place] % (Auto) Eos % (Auto) Baso % (Auto) Neut # (Auto) Lymph # (Auto) [place] # (Auto) Eos # (Auto) Baso # (Auto) Nucleated RBC % (a uto) Nucleated RBCs # Sodium 134 L Potassium 3.9 Chloride 97 L Carbon Dioxide 28 Anion Gap 12.9 BUN 57 H Creatinine 3.4 H GFR Calculation Not Reportable Glucose 129 H POC Glucose 467 H 155 H Calculated Osmolal ity 296 H Calcium 8.1 L Phosphorus 3.6 Magnesium 2.0 Total Bilirubin 0.5 AST 14 ALT < 5 Alkaline Phosphata se 56 Total Protein 6.2 L Albumin 3.2 L Globulin 3.0 11/24/20 11/23/20 11/23/20 04:36 20:03 16:34 WBC 8.3 RBC 2.92 L Hgb 9.6 L Hct 27.4 L MCV 93.8 MCH 32.9 MCHC 35.0 RDW 11.8 L Plt Count 201 MPV 11.1 H Neut % (Auto) 71.4 Lymph % (Auto) 11.4 [place] % (Auto) 11.6 Eos % (Auto) 4.5 Baso % (Auto) 0.4 Neut # (Auto) 5.89 Lymph # (Auto) 0.9 [place] # (Auto) 1.0 H Eos # (Auto) 0.4 Baso # (Auto) 0.0 Nucleated RBC % (a uto) 0 Nucleated RBCs # 0.0 Sodium Potassium Chloride Carbon Dioxide Anion Gap BUN Creatinine GFR Calculation Glucose POC Glucose 319 H 302 H Calculated Osmolal ity Calcium Phosphorus Magnesium Total Bilirubin AST ALT Alkaline Phosphata se Total Protein Albumin Globulin Vitals: Last Vital Signs Temp 98.1 F 11/24/20 11:20 Pulse 86 11/24/20 11:20 Resp 22 H 11/24/20 11:20 BP 133/69 11/24/20 11:20 Pulse Ox 97 11/24/20 11:20 Discharge Plan Discharge Patient Disposition: Home Condition: Stable Prescriptions: New carvedilol 6.25 mg Tablet 6.25 mg PO 0900,2100 Qty: 60 RF: 0 clopidogrel 75 mg Tablet 75 mg PO DAILY Qty: 30 RF: 0 Continued carvedilol 12.5 mg tablet 12.5 mg PO BID RF: 0 metolazone 5 mg tablet 5 mg PO DAILY PRN (Reason: Edema) RF: 0 glimepiride 2 mg tablet 2 mg PO BID RF: 0 isosorbide mononitrate 120 mg tablet extended release 24 hr 120 mg PO DAILY RF: 0 aspirin 81 mg Tablet,Chewable 81 mg PO BEDTIME RF: 0 bumetanide 1 mg tablet 1 mg PO BID RF: 0 Vitamin D3 25 mcg (1,000 unit) Capsule 25 mcg PO DAILY RF: 0 ezetimibe 10 mg tablet 10 mg PO DAILY RF: 0 Lantus Solostar U-100 Insulin 100 unit/mL (3 mL) insulin pen 50 unit SUBCUT DAILY RF: 0 ranolazine 1,000 mg tablet extended release 12 hr 1,000 mg PO BID RF: 0 calcitriol See Rx Instructions .ROUTE .COMPLEX RF: 0 Discharge Orders: Discharge Order (Routine); Ordered 11/24/20 Ordered By: Bakari Dutta Referrals: [facility] Provider,Nephrology MD Karlo [[facility]] - CLAUS RICCI MD [Primary Care Provider] - Discharge Diet: Usual diet Discharge Activity: Resume usual activity Patient Instructions: Opioid Safety Discharge Attestations Time Spent in Discharge Care*: less than 30 min Specific Discharge Activities: educating patient Time Spent in Smoking Cessation: 3 to 10 minutes Status at Discharge: Cognitive status at discharge: cognitively intact , Quality Metrics Clinical Quality Measures During this hospital stay, did patient experience: None Coding Level of Care Code Acute Chg FW DC note Diagnoses Renal failure (ARF), acute on chronic N17.9; N18.4 Acute renal failure type: unspecified Chronic kidney disease stage: stage 4 (severe) Non-ST elevation [place] (NSTEMI) I21.4 Congestive heart failure I50.9 Heart failure chronicity: acute on chronic Heart failure type: unspecified CAD (coronary artery disease) I25.810 Coronary Disease-Associated Artery/Lesion type: bypass graft [place] vs. transplanted heart: [place] heart Associated angina: without angina HTN (hypertension) I10 Hypertension type: essential hypertension Hyperlipidemia E78.5 Hyperlipidemia type: unspecified CKD (chronic kidney disease) N18.4 Chronic kidney disease stage: stage 4 (severe)
--- NOTE | 2020-11-24 13:03 | PM.PN ---
Subjective Subjective: Interval history: No new complaints. He is eager to go home. Runs of SVT noted on telemetry Medications: Reviewed: Yes Vitals/I&O/Wt Last Vital Signs Temp 98.1 F 11/24/20 11:20 Pulse 86 11/24/20 11:20 Resp 22 H 11/24/20 11:20 BP 133/69 11/24/20 11:20 Pulse Ox 97 11/24/20 11:20 11/23/20 11/24/20 11/24/20 22:59 06:59 14:59 Intake Total 360 / 870 410 / 410 Output Total 2300 / 2300 550 / 2850 600 / 600 Balance -1940 / -1430 -550 / -1980 -190 / -190 Weight last 48 hrs Weight 208 lb Weight 207 lb 6.4 oz Physical Exam Narrative: EXAM NARRATIVE: GENERAL: Obese man lying in bed in no respiratory distress HEENT: Pupils equal round reactive to light. No pallor or icterus. NECK: Short thick neck, No JVD appreciated. No carotid bruit. CARDIOVASCULAR SYSTEM: S1-S2 regular. no S3. No murmur rubs or gallops. RESPIRATORY SYSTEM: Air entry equal bilaterally. No wheezes. Bilateral clear to auscultation. no use of accessory muscles. ABDOMEN: Soft, obese, nontender. EXTREMITIES: No cyanosis or clubbing. No significant edema. Good peripheral pulses. 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 No focal neurological deficits. PSYCH: Normal insight and judgment. Urinary Catheter Management^: Alejandre: Cath Placed During This Visit: yes, but has since been removed by the nurse Reason for Continuing Indwelling Catheter: Accurate Measurement of Urinary Output in Critically Ill Patients Urinary Catheter Date of Insertion: 11/16/20 Urinary Catheter Time of Insertion: 03:05 Date Urinary Catheter Removed: 11/23/20 Time Urinary Catheter Discontinued: 16:00 Data : 11/24/20 04:36 11/24/20 04:36 A&P Assessment and plan (1) Renal failure (ARF), acute on chronic: -Likely d/t MIKE . --Nephrology has been on board. -Good UO. Not on hemodialysis since sudden. -Creatinine improving. Status: Acute Qualifiers: Acute renal failure type: unspecified Chronic kidney disease stage: stage 4 (severe) Qualified Code(s): N17.9 - Acute kidney failure, unspecified; N18.4 - Chronic kidney disease, stage 4 (severe) (2) Non-ST elevation NC (NSTEMI): Sudden onset dyspnea with some arm and hand pain (angina equivalent) and sweating, significantly elevated troponin and echocardiogram with wall motion abnormality in LAD and circumflex artery territory. -There seems to be drop in LV function as well when compared to echocardiogram report dated May 2018. He underwent coronary angiogram with Dr. Castro via right femoral access. Patent SEVILLA to LAD. RCA is patent with multiple stents. in-stent restenosis of 50% in distal segments. SVG grafts are occluded ostially.. SVG to circumflex probably culprit. Distal left main occluded, failed attempt at wiring. Received about 130 cc of contrast. -Continue to manage medically. -ASA, plavix for 1 year at least, coreg and imdur and ranexa. -h/o statin intolerance. He would benefit from PCSK9i. Advised to discuss with his fern gatherer. Follow up with Dr. Varner in [place] (appt on 11/30/20). Status: Acute (3) Congestive heart failure: Ischemic cardiomyopathy with LVEF of 35%. -restart bumex and PRN metolazone on discharge. -increase coreg back to home dose. Status: Acute Qualifiers: Heart failure chronicity: acute on chronic Heart failure type: unspecified Qualified Code(s): I50.9 - Heart failure, unspecified (4) CAD (coronary artery disease): h/o CABGx 3 and multiple PCI's Status: Acute Qualifiers: Coronary Disease-Associated Artery/Lesion type: bypass graft [place] vs. transplanted heart: [place] heart Associated angina: without angina Qualified Code(s): I25.810 - Atherosclerosis of coronary artery bypass graft(s) without angina pectoris (5) HTN (hypertension): Status: Acute Qualifiers: Hypertension type: essential hypertension Qualified Code(s): I10 - Essential (primary) hypertension (6) Hyperlipidemia: Status: Acute Qualifiers: Hyperlipidemia type: unspecified Qualified Code(s): E78.5 - Hyperlipidemia, unspecified (7) CKD (chronic kidney disease): Status: Acute Qualifiers: Chronic kidney disease stage: stage 4 (severe) Qualified Code(s): N18.4 - Chronic kidney disease, stage 4 (severe) Additional A&P Information Runs of supraventricular tachycardia: Increase Coreg to 12.5 mg twice a day Pulmonary edema on presentation: resolved Obesity Anemia of chronic kidney disease Thank you for allowing me to participate in patient's care. Please feel free to call with questions or concerns Attestations Medical Necessity Statement*: As per primary team Time Spent in Patient Care: 16 - 35 minutes (>than 50% of time spent in counselling and/or direct pt care on unit). 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 transplanted heart: [place] heart Associated angina: without angina HTN (hypertension) I10 Hypertension type: essential hypertension Hyperlipidemia E78.5 Hyperlipidemia type: unspecified CKD (chronic kidney disease) N18.4 Chronic kidney disease stage: stage 4 (severe)
[2020-11-24 13:39] VITALS: BP 133/69; PULSE 86; RESP 22; TEMP 36.7; O2SAT 97
--- NOTE | 2020-11-24 13:45 | PC.NURSE ---
Notified Physician Regarding hemodialysis catheter has to be removed by a surgeon. Discharge order follow-up appointment tomorrow to be removed by Dr. Tyler in his clinic. Pt and informed.
--- NOTE | 2020-11-24 15:46 | PC.NURSE ---
Pt education provided to self and spouse, no questions or concerns, IV removed, VS stable upon departure
[2020-11-25 14:03] LABS: Vit D 1,25 (Oh)2, Total 21 pg/mL (18-72); Vit D2 1,25 (Oh)2 <8 pg/mL; Vit D3 1,25 (Oh)2 21 pg/mL
== END 2020-11-24 15:46 | disposition home or self-care (01) | DRG 280 ==
LOC: ER 11-16 00:48 → ICU 11-16 01:40 → CSU 11-18 02:55
PROVIDERS: Family Medicine; Internal Medicine; Internal Medicine Cardiovascular Disease; Internal Medicine Nephrology; Surgery; Admitting Provider Internal Medicine; Emergency Provider Emergency Medicine; PCP Internal Medicine; Visit Provider Internal Medicine
PROC: B213YZZ Fluoroscopy of Multiple Coronary Artery Bypass Grafts using Other Contrast (ICD-10-PCS; principal; 2020-11-17 06:00)
PROC: 0JH63XZ Insertion of Tunneled Vascular Access Device into Chest Subcutaneous Tissue and Fascia, Percutaneous Approach (ICD-10-PCS; principal; 2020-11-20 10:00)
DX: I21.4 Non-ST elevation (NSTEMI) myocardial infarction (principal); J96.21 Acute and chronic respiratory failure with hypoxia; N17.0 Acute kidney failure with tubular necrosis; I13.0 Hypertensive heart and chronic kidney disease with heart failure and stage 1 through stage 4 chronic kidney disease, or unspecified chronic kidney disease; N18.4 Chronic kidney disease, stage 4 (severe); I25.810 Atherosclerosis of coronary artery bypass graft(s) without angina pectoris; E87.3 Alkalosis; I47.1 Supraventricular tachycardia; E11.22 Type 2 diabetes mellitus with diabetic chronic kidney disease; E11.65 Type 2 diabetes mellitus with hyperglycemia; I50.9 Heart failure, unspecified; E11.21 Type 2 diabetes mellitus with diabetic nephropathy; Z95.1 Presence of aortocoronary bypass graft; Z95.5 Presence of coronary angioplasty implant and graft; Z82.49 Family history of ischemic heart disease and other diseases of the circulatory system; I44.7 Left bundle-branch block, unspecified; F10.10 Alcohol abuse, uncomplicated; E87.5 Hyperkalemia; E78.5 Hyperlipidemia, unspecified; D63.1 Anemia in chronic kidney disease; E55.9 Vitamin D deficiency, unspecified; E21.3 Hyperparathyroidism, unspecified; E66.9 Obesity, unspecified; Z68.29 Body mass index [BMI] 29.0-29.9, adult; Z85.820 Personal history of malignant melanoma of skin; Z79.4 Long term (current) use of insulin; I25.5 Ischemic cardiomyopathy; N14.1 Nephropathy induced by other drugs, medicaments and biological substances; T50.8X5A Adverse effect of diagnostic agents, initial encounter
CPT/HCPCS: 36415; 36416; 51702; 71045; 76000; 76770; 77001; 80048; 80053; 80061; 81001; 82044; 82306; 82310; 82436; 82550; 82570; 82652; 82728; 82962; 83036; 83540; 83550; 83735; 83880; 83970; 84100; 84133; 84156; 84300; 84443; 84484; 85025; 85049; 85610; 86160; 86706; 86803; 87340; 90935; 93005; 93306; 93459; 94660; 94664; 96365; 96372; 96374; 96375; 99291; C1750; C1760; C1769; C1887; C1894; C8929; J0360; J0690; J0696; J1644; J1650; J1815; J1940; J2250; J2270; J2405; J2704; J3010; J3411; J3490; J7030; J7050; Q3014; Q9956; Q9967